=== PATIENT | male | born 1955 | race Caucasian/White ===

== ENCOUNTER 2023-05-26 10:29 | Outpatient (AMB) | payer MEDICARE, OTHER, SELFPAY ==
--- NOTE | 2023-05-26 12:14 | AM.OFFWIN_ITS ---
Intake Vital Signs 05/26/23 12:19 Weight 172 lb 6 oz BP 112/68 Blood Pressure Location Rt brachial Position Sitting Pulse 110 H Pulse Source Pulse Oximeter Pulse Oximetry (%) 93 Oxygen Delivery Method Room Air Intake Visit Reasons: EP, Left leg scrape and swelling [phone] Intake Note: Patient here because he fell on the metal part from siding door and has an open wound that is still bleeding and swollen. Patient Tobacco Use Status: Never used Tobacco Allergies diltiazem Adverse Reaction (Intermediate, Verified 05/26/23 12:22) unknown nifedipine Adverse Reaction (Mild, Verified 05/26/23 12:22) unknown Medication List - Last Reconciled 05/26/23 by Sheila Early CNP amlodipine 5 mg PO DAILY duloxetine 30 mg PO DAILY empagliflozin (Jardiance) 10 mg PO DAILY finasteride 5 mg PO DAILY fluticasone propionate 50 mcg/actuation sprays intranasal gabapentin mg PO ipratropium bromide intranasal DAILY omeprazole 20 mg PO DAILY prednisone mg PO quetiapine mg PO rosuvastatin 20 mg PO BEDTIME spironolactone 25 mg PO DAILY tamsulosin 0.4 mg PO DAILY HPI HPI Comments History of Present Illness Details 67-year-old male presents today for sick visit for complaint of left leg redness, swelling, pain after a fall last evening. Patient endorses having thin skin , and tears easily. He denies LOC w/ fall, syncopal episode, dizziness, or lightheadedness. He denies fever, chills, CP, SOB, abdominal pain, changes in bowels or bladder. He endorses working with his PCP to determine causes of frequent falls. Left lower leg with bandage intact, erythema, and edema noted around bandage. Bandage taken down and wound examined; posterior and lateral to left knee with large skin tear 3-4cm in length, and small hematoma noted, + DP, and PT pulses. Wound cleansed w/ 1/2 strength H202, bacitracin oinment applied, and wound dressed and wrapped with kelli. [facility] Social History Patient Tobacco Use Status: Never used Tobacco Review of Systems Const All systems reviewed & are unremarkable except as noted in HPI and below Physical Exam Vital Signs: Last Vital Signs Pulse 110 H 05/26/23 12:19 BP 112/68 05/26/23 12:19 Pulse Ox 93 05/26/23 12:19 Oxygen Delivery Method Room Air 05/26/23 12:19 Const General: cooperative, no acute distress, well developed and well groomed Nutritional Appearance: well nourished Orientation/consciousness: patient oriented x3 Limitations: no limitations HEENT Head: Yes normal to inspection, Yes normocephalic and Yes atraumatic Ears: hearing grossly normal bilaterally Mouth: moist mucous membranes Eyes Eyelids: Yes eyelid abnormality (left eyelid closed more than right; pt reports failed cataract surgery. ) Conjunctivae: conjunctivae normal (left conjunctivate slightly erythematous) Corneas: corneas normal Resp Effort & Inspection: normal respiratory effort, no respiratory distress and not tachypneic Auscultation: clear to auscultation bilaterally Cardio Rate: regular rate Rhythm: regular rhythm Heart sounds: S1 normal heart sound present and S2 normal heart sound present Peripheral pulses: Peripheral pulses 2+ throughout GI Palpation (GI): Soft to palpation, nontender and no guarding Auscultation: normal bowel sounds General: Yes no CVA tenderness Back/Spine/Pelvis Back: no CVA tenderness Skin Trauma: abrasion (3-4cm superficial skin tear w/ small size hematoma ) and laceration (3-4cm superficial skin tear w/ small size hematoma ) left lateral lower leg Neuro General: patient oriented x3, gait normal and moves all extremities Extrem General: Yes normal to inspection, Yes capillary refill normal and Yes no joint enlargement Psych Mental Status: mental status grossly normal Speech and movement: Normal speech and movement present Affect: normal affect Attitude: cooperative Assessment & Plan Assessment & Plan (1) Cellulitis of left lower leg: Code(s): L03.116 - Cellulitis of left lower limb Plan: 67-year-old male seen today for cellulitis of left lower extremity after recent fall with an abrasion/laceration to left lateral lower extremity. Wound cleaned, antibiotic ointment applied, and dressed w/ dry dressing and cling wrap Will treat empirically with amoxicillin 500 mg po bid x 7 days. Encouraged to follow up with PCP, or return to office for worsening or u nresolved symptoms Medications: New amoxicillin 500 mg PO BID 7 days 14 caps 0RF L03.116 - Cellulitis of left lower limb Coding Level of Care Code Est Pt Level 3 (91827) Diagnoses Cellulitis of left lower leg L03.116
[2023-05-26 12:19] VITALS: BP 112/68; PULSE 110; O2SAT 93
== END 2023-05-26 12:47 | disposition home or self-care (01) ==
PROVIDERS: PCP Hospitalist; Visit Provider Nurse Practitioner Acute Care
DX: L03.116 Cellulitis of left lower limb (principal)
CPT/HCPCS: 99213

== ENCOUNTER 2023-05-29 17:01 | Emergency (ER) | payer MEDICARE, OTHER, SELFPAY ==
--- NOTE | ~2023-05-29 | CT_ITS ---
EXAMINATION: CT HEAD WITHOUT CONTRAST CLINICAL INFORMATION: Ethanol use; gait unsteadiness. COMPARISON: None available. TECHNIQUE: Contiguous axial imaging was performed from the skull base to vertex without intravenous administration of contrast. This CT examination was performed using dose optimization techniques as appropriate, variously including the following: *Automated exposure control *Adjustment of mA and/or kV according to patient size (this includes techniques or standardized protocols for targeted exams where dose is matched to indication/reason for exam; i.e. extremities or head) *Use of iterative reconstruction technique DLP: 758 mGy-cm FINDINGS: There is no acute intracranial hemorrhage or evidence of territorial infarction. No abnormal mass effect or midline shift is seen. Humphrey to white matter differentiation is well preserved. There is mild patchy low attenuation change in the periventricular and subcortical white matter spaces. There is ventriculomegaly and proportionate generalized sulcal widening. No extra-axial fluid collections are identified. The calvarium and scalp soft tissues are normal. The middle ear cavity and mastoid air cells are clear. The visualized paranasal sinuses are clear. CT/CT head/brain wo IV con IMPRESSION: 1. No acute intracranial pathology. 2. There is mild patchy low attenuation change in the periventricular and subcortical white matter spaces. 3. There is ventriculomegaly and proportionate sulcal widening.
[2023-05-29 17:28] VITALS: BP 117/77; BP 128/76; PULSE 77; PULSE 82; RESP 20; TEMP 36.4; O2SAT 94; BMI 25.8
--- NOTE | 2023-05-29 17:40 | PC.NURSE ---
pt is alert and oriented, skin pwd, respirations and even and unlabored, ls clear, pt reports feeling generally weak and reports falling down 3 days ago not exactly sure why, having some generalized abd pain nausea and vomiting-pt states that he is a daily drinker of hard liquor more then 3 drinks a day but today only had one small drink, abd appears distended but soft and non-tender except the right upper quadrant
[2023-05-29 17:47] LABS: Glucose, Whole Blood 130 mg/dL (60-115)
[2023-05-29 17:54] LABS: MANUAL DIFF FLAG NO
[2023-05-29 18:05] LABS: Basophils Percent Auto 0.5 % (0-2); Eosinophils Percent Auto 0.1 % (0-4); Hematocrit 41.2 % (42.0-52.0); Hemoglobin 14.1 g/dl (14.0-18.0); Imm Gran Abs Auto 0.16 X10*3/uL (0.00-0.03); Imm Gran Pct Auto 1.9 % (0.0-0.4); Lymphocytes Absolute Auto 0.5 X10*3/uL (1.2-4.9); Lymphocytes Percent Auto 6.1 % (20-40); Mean Corpuscular HGB Conc 34.2 g/dl (31.0-36.0); Mean Corpuscular Hemoglobin 30.1 pg (27.0-33.0); Mean Platelet Volume 10.4 fL (9.4-12.4); Monocytes Absolute Auto 1.1 X10*3/uL (0.1-1.2); Monocytes Percent Auto 13.1 % (2-11); Neutrophils Absolute Auto 6.6 x10*3/uL (2.0-8.3); Neutrophils Percent Auto 78.3 % (45-73); Platelet Count 186 X10*3/uL (160-400); Red Blood Count 4.68 X10*6/uL (4.60-5.80); Red Cell Distribution Width 13.2 % (11.0-16.0); White Blood Count 8.5 X10*3/uL (4.8-10.8)
[2023-05-29 18:08] LABS: COVID-19 Test Negative (Negative); IDNOW Serial# 08D9AD1C
[2023-05-29 18:15] VITALS: O2SAT 85
--- NOTE | 2023-05-29 18:15 | PC.NURSE ---
while the pt is sleeping the oxygen dropped down to 85% on room air, pt denies having sleep apnea, pt put on 2l nasal cannual and now sating at 96%, dr silva aware of the situation
[2023-05-29 18:17] LABS: Ethanol < 10 mg/dL
[2023-05-29 18:19] LABS: Alanine Aminotransferase 24 U/L (0-40); Albumin Level 3.8 g/dL (3.5-5.0); Alkaline Phosphatase 55 U/L (39-117); Anion Gap 19 (12-20); Aspartate Amino Transferase 42 U/L (5-37); Bilirubin Total 0.6 mg/dL (0.0-1.0); Blood Urea Nitrogen 20 mg/dL (9-16); Carbon Dioxide 25 mmol/L (22-29); Chloride 92 mmol/L (96-108); Creatinine Clr Calc Pharmacy 65.4; Estimated Glomerular Filt Rate > 60; Glucose Random 111 mg/dL (60-115); Sodium 132 mmol/L (135-145); Total Protein 7.6 g/dL (6.5-8.0)
[2023-05-29 18:20] VITALS: O2SAT 96
--- NOTE | 2023-05-29 18:36 | ED.GENADULT ---
[facility] Adult General Chief complaint: Abdominal Pain Stated complaint: NAUSEA/VOMITING Time Seen by Provider: 05/29/23 17:34 Source: patient Mode of arrival: EMS History of Present Illness HPI narrative: 67-year-old male brought in by EMS for complaints of gentle this weakness started this afternoon and also having associated nausea with abdominal discomfort and reports that he fell 3 days ago and was seen at urgent care and has an injury to the and your aspect of his left lower extremity. Patient denies any shortness of breath or chest pain at this time but states his abdomen feels bloated but states he has continued to pass flatus and have a bowel movement. 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 Patient reports that he is an everyday drinker and his last drink was last night and he denies any seizure activity from withdrawal. Related Data Home Medications Medication Instructions Recorded Confirmed amlodipine 5 mg tablet 5 mg PO DAILY 05/26/23 duloxetine 30 mg capsule,delayed 30 mg PO DAILY 05/26/23 release empagliflozin 10 mg tablet 10 mg PO DAILY 05/26/23 (Jardiance) finasteride 5 mg tablet 5 mg PO DAILY 05/26/23 fluticasone propionate 50 spray intranasal 05/26/23 mcg/actuation nasal spray,suspension gabapentin 600 mg tablet mg PO 05/26/23 ipratropium bromide 21 mcg (0.03 intranasal DAILY 05/26/23 %) nasal spray omeprazole 20 mg capsule,delayed 20 mg PO DAILY 05/26/23 release prednisone 5 mg tablet mg PO 05/26/23 quetiapine 25 mg tablet mg PO 05/26/23 rosuvastatin 20 mg tablet 20 mg PO BEDTIME 05/26/23 spironolactone 25 mg tablet 25 mg PO DAILY 05/26/23 tamsulosin 0.4 mg capsule 0.4 mg PO DAILY 05/26/23 Previous Rx's Medication Instructions Recorded amoxicillin 500 mg capsule 500 mg PO BID 7 days #14 caps 05/26/23 Allergies Allergy/AdvReac Type Severity Reaction Status Date / Time diltiazem AdvReac Intermediate unknown Verified 05/29/23 17:34 nifedipine AdvReac Mild unknown Verified 05/29/23 17:34 Review of Systems Review of Systems: Pertinent positives and negatives as stated in HPI [facility] Past Medical History Source: nursing notes reviewed Social History Social History Alcohol intake: current Alcohol intake frequency: 3 or more drinks per day Alcohol type: hard liquor Patient Tobacco Use Status: Never used Tobacco Smoked in Last 30 Days: No Use of substances other than those prescribed or required for medical reasons: No Advance Directives: No Advance Directives Information Provided: No Physical Exam ED Vital Signs: Vital Signs - 24 hr 05/29/23 17:28 05/29/23 18:15 05/29/23 18:20 Temperature 97.5 F Pulse Rate 77 Respiratory Rate 20 Blood Pressure 117/77 Pulse Oximetry 94 85 L 96 Oxygen Delivery Method Room Air Room Air Nasal Cannula Oxygen Flow Rate 2 05/29/23 22:00 Temperature 97.6 F Pulse Rate 95 Respiratory Rate 12 Blood Pressure 124/81 Pulse Oximetry 99 Oxygen Delivery Method Nasal Cannula Oxygen Flow Rate 2 BMI result Body Mass Index 25.8 VITAL SIGNS: Reviewed. GENERAL: Well developed, well nourished, in no acute distress. HEAD: Normocephalic/atraumatic EYES: PERRLA, EOMI EARS: Ext canals without abnormality NOSE: Nares patent bilateral OROPHARYNX: no oral lesions noted, posterior pharynx clear NECK: Supple, no adenopathy LUNGS: Normal breath sounds. No adventitious sounds or accessory muscle use. SpO2<94> CARDIOVASCULAR: Regular rate and rhythm without noted murmurs ABDOMEN: Soft, non-tender, non-distended with bowel sounds. MUSCULOSKELETAL: No tenderness, deformities, or effusions noted on gross inspection. EXTREMITIES: No cyanosis, clubbing or edema. LLE: Superficial skin tears and ecchymosis to the anterior aspect of the left lower extremity SKIN: Inspection of the skin reveals no rashes NEUROLOGIC: Alert and oriented x 4. Strength and sensation to light touch were grossly intact x 4. Medications Administered Discontinued Medications Generic Name Dose Route Start Last Admin Trade Name Freq PRN Reason Stop Dose Admin Sodium Chloride 500 mls @ 999 mls/hr 05/29/23 21:15 05/29/23 21:46 Ns IV 05/29/23 21:45 999 mls/hr .Q31M NELLY Administration Medical Decision Making Medical Decision Making MDM Narrative: 67-year-old male with history and clinical presentation, DDX: Alcohol intoxication, B12 deficiency, intracranial mass, intracranial hemorrhage without acute focal deficits. I reviewed laboratory investigations which are negative for leukocytosis, anemia, thrombocytopenia, there is a mild left shift. Chemistry indices are significant for a mild dip in sodium and chloride likely secondary to poor oral intake, there is no LUKE and otherwise liver enzymes are stable. Alcohol level is undetectable and COVID-[address] of the head negative for intracranial hemorrhage or space occupying lesion. Urinalysis negative for UTI or hematuria. Signed out to Dr Aburto - [facility] - Ambulate Differential Diagnosis Differential Diagnoses: The differential diagnosis associated with the presentation includes Please see the discussion above Admission/Observation Consideration of admission/observation: Escalation of care including admission/observation considered Please see the discussion above Lab Data MDM Lab Attestation statement: I reviewed the patient's lab results. Please see the discussion above 05/29/23 17:48 05/29/23 17:48 Labs: Lab Results 05/29/23 05/29/23 05/29/23 Range/Units 17:43 17:47 17:48 WBC 8.5 (4.8-10.8) X10*3/uL RBC 4.68 (4.60-5.80) X10*6/uL Hgb 14.1 (14.0-18.0) g/dl Hct 41.2 L (42.0-52.0) % MCV 88.0 (80.0-98.0) fL MCH 30.1 (27.0-33.0) pg MCHC 34.2 (31.0-36.0) g/dl RDW 13.2 (11.0-16.0) % Plt Count 186 (160-400) X10*3/uL MPV 10.4 (9.4-12.4) fL Immature Gran % (Auto) 1.9 H (0.0-0.4) % Neut % (Auto) 78.3 H (45-73) % Lymph % (Auto) 6.1 L (20-40) % Edmonson % (Auto) 13.1 H (2-11) % Eos % (Auto) 0.1 (0-4) % Baso % (Auto) 0.5 (0-2) % Lymph # (Auto) 0.5 L (1.2-4.9) X10*3/uL Ed[place]on # (Auto) 1.1 (0.1-1.2) X10*3/uL Eos # (Auto) 0.0 (0.0-0.4) X10*3/uL Baso # (Auto) 0.0 (0.0-0.2) X10*3/uL Abs Immat Gran (auto) 0.16 H (0.00-0.03) X10*3/uL Absolute Neuts (auto) 6.6 (2.0-8.3) x10*3/uL Absolute Nucleated RBC 0.000 (0.0-0.012) X10*3/uL Nucleated RBC % (auto) 0.0 (0.0-0.2) /100WBC Sodium 132 L (135-145) mmol/L Potassium 4.0 (3.3-5.1) mmol/L Chloride 92 L (96-108) mmol/L Carbon Dioxide 25 (22-29) mmol/L Anion Gap 19 (12-20) BUN 20 H (9-16) mg/dL Creatinine 1.03 (0.5-1.4) mg/dL Estim Creat Clear Calc 65.4 Estimated GFR > 60 POC Glucose 130 H (60-115) mg/dL Random Glucose 111 (60-115) mg/dL Calcium 10.0 (8.4-10.2) mg/dL Total Bilirubin 0.6 (0.0-1.0) mg/dL AST 42 H (5-37) U/L ALT 24 (0-40) U/L Alkaline Phosphatase 55 (39-117) U/L Total Protein 7.6 (6.5-8.0) g/dL Albumin 3.8 (3.5-5.0) g/dL Urine Color Urine Appearance Urine pH (5.0-9.0) Ur Specific [place] (1.005-1.025) Urine Protein (Neg-Trace) mg/dL Urine Glucose (UA) (Negative) mg/dL Urine Ketones (Negative) mg/dL Urine Blood (Negative) Urine Nitrite (Negative) Ur Leukocyte Esterase (Negative) Ethyl Alcohol < 10 mg/dL COVID-19 ([facility]USA) Negative (Negative) COVID-19 Clin Com See Note 05/29/23 Range/Units 21:53 WBC (4.8-10.8) X10*3/uL RBC (4.60-5.80) X10*6/uL Hgb (14.0-18.0) g/dl Hct (42.0-52.0) % MCV (80.0-98.0) fL MCH (27.0-33.0) pg MCHC (31.0-36.0) g/dl RDW (11.0-16.0) % Plt Count (160-400) X10*3/uL MPV (9.4-12.4) fL Immature Gran % (Auto) (0.0-0.4) % Neut % (Auto) (45-73) % Lymph % (Auto) (20-40) % Edmonson % (Auto) (2-11) % Eos % (Auto) (0-4) % Baso % (Auto) (0-2) % Lymph # (Auto) (1.2-4.9) X10*3/uL [place] # (Auto) (0.1-1.2) X10*3/uL Eos # (Auto) (0.0-0.4) X10*3/uL Baso # (Auto) (0.0-0.2) X10*3/uL Abs Immat Gran (auto) (0.00-0.03) X10*3/uL Absolute Neuts (auto) (2.0-8.3) x10*3/uL Absolute Nucleated RBC (0.0-0.012) X10*3/uL Nucleated RBC % (auto) (0.0-0.2) /100WBC Sodium (135-145) mmol/L Potassium (3.3-5.1) mmol/L Chloride (96-108) mmol/L Carbon Dioxide (22-29) mmol/L Anion Gap (12-20) BUN (9-16) mg/dL Creatinine (0.5-1.4) mg/dL Estim Creat Clear Calc Estimated GFR POC Glucose (60-115) mg/dL Random Glucose (60-115) mg/dL Calcium (8.4-10.2) mg/dL Total Bilirubin (0.0-1.0) mg/dL AST (5-37) U/L ALT (0-40) U/L Alkaline Phosphatase (39-117) U/L Total Protein (6.5-8.0) g/dL Albumin (3.5-5.0) g/dL Urine Color Yellow Urine Appearance Clear Urine pH 6.0 (5.0-9.0) Ur Specific [place] 1.020 (1.005-1.025) Urine Protein 30 (1+) H (Neg-Trace) mg/dL Urine Glucose (UA) >=1000 H (Negative) mg/dL Urine Ketones Trace (Negative) mg/dL Urine Blood Negative (Negative) Urine Nitrite Negative (Negative) Ur Leukocyte Esterase Negative (Negative) Ethyl Alcohol mg/dL COVID-19 (MUSA) (Negative) COVID-19 Clin Com Radiology Impression Discussion of test interpretation with radiology: I have reviewed the radiologist's reading. Radiologist Impression: Please see the discussion above Discharge Plan Discharge Clinical Impression: Nausea & vomiting Patient Disposition: Still a Patient Prescriptions: No Action fluticasone propionate 50 mcg/actuation spray,suspension intranasal Jardiance 10 mg tablet 10 mg PO DAILY duloxetine 30 mg capsule,delayed release(DR/EC) 30 mg PO DAILY rosuvastatin 20 mg tablet 20 mg PO BEDTIME finasteride 5 mg tablet 5 mg PO DAILY omeprazole 20 mg capsule,delayed release(DR/EC) 20 mg PO DAILY spironolactone 25 mg tablet 25 mg PO DAILY amlodipine 5 mg tablet 5 mg PO DAILY prednisone 5 mg tablet PO gabapentin 600 mg tablet PO tamsulosin 0.4 mg capsule 0.4 mg PO DAILY quetiapine 25 mg tablet PO ipratropium bromide 21 mcg (0.03 %) spray,non-aerosol intranasal DAILY amoxicillin 500 mg capsule 500 mg PO BID 7 Days Qty: 14 0RF
[2023-05-29] MEDS: 0.9 % Sodium Chloride 500 ML 999 ML IV (21:46)
[2023-05-29 22:00] VITALS: BP 124/81; PULSE 95; RESP 12; TEMP 36.4; O2SAT 99
[2023-05-29 22:10] LABS: Appearance Urine Clear; Color Urine Yellow; Glucose Urine UA >=1000 mg/dL (Negative); Leukocyte Esterase Urine Negative (Negative); Nitrite Urine Negative (Negative); UMIC TRIGGER UACC YES; Urine Blood Negative (Negative); Urine Ketones Trace mg/dL (Negative); Urine Protein 30 (1+) mg/dL (Neg-Trace)
--- NOTE | 2023-05-29 22:26 | MHC.EDTECH ---
Pt ambulated with slow, steady gait. Pt states he felt shaky walking and that normally is able to walk better.
[2023-05-29 22:46] LABS: Bacteria Urine None Seen (None Seen); Hyaline Casts Urine 0-2 /LPF (0-2); RBC Urine 0-2 /HPF (0-2); Squamous Epithelial Cell Urine 0-2 /HPF (0-2); WBC Urine 0-5 /HPF (0-5)
[2023-05-30] VITALS: BP 131/87; PULSE 93; RESP 14; TEMP 36.8; O2SAT 95
--- NOTE | 2023-05-30 01:16 | PC.NURSE ---
This RN in room with patient in attempt to discharge as ordered. Pt reporting he is very concerned regarding going home and having dizziness and falls. This RN discussed with and patient will be evaluated by PT//case mgt in the am.
[2023-05-30 02:00] VITALS: BP 124/75; PULSE 90; RESP 12; O2SAT 95
[2023-05-30 05:01] VITALS: BP 112/79; PULSE 85; RESP 12; O2SAT 93
--- NOTE | 2023-05-30 07:19 | PC.NURSE ---
Resumed care of patient this AM, he is currently awake and oriented, PT at bedside talking with patient. No concerns at this time, safety measures in place
[2023-05-30 07:22] VITALS: BP 133/92; PULSE 90; RESP 12; TEMP 36.7; O2SAT 95
[2023-05-30 07:37] VITALS: BP 133/92; PULSE 90; O2SAT 95
--- NOTE | 2023-05-30 08:56 | PC.NURSE ---
Wound care provided to Left vogel wound, pt has been seen at urgent care for wound, pt is aware that he needs to follow up outpatient. Provider aware of wound.
--- NOTE | 2023-05-30 09:34 | MHC.CM.ED ---
Received case management consult overnight. Patient came to the ER due to nausea/vomiting. Work up essentially negative. Physical therapy eval completed. Home therapy is recommended. Met with patient in regards to discharge planning. Patient lives alone, ambulates independently and had no services prior to coming to the hospital. PCP verified. Patient received 6 Pfizer vaccines. Patient feels he can safely return home with [facility]. Patient agreeable to referral to [facility]. Referral made via [facility]. Patient's friend will transport patient home. Rachele TRACY aware. Continue to monitor for d/c needs.
== END 2023-05-30 09:54 | disposition home or self-care (01) ==
PROVIDERS: Emergency Provider Student in an Organized Health Care Education/Training Program; PCP Family Medicine
DX: R11.2 Nausea with vomiting, unspecified (principal); Z11.52 Encounter for screening for COVID-19; I11.0 Hypertensive heart disease with heart failure; I50.9 Heart failure, unspecified; I48.91 Unspecified atrial fibrillation; F10.988 Alcohol use, unspecified with other alcohol-induced disorder; Y90.0 Blood alcohol level of less than 20 mg/100 ml; Z95.2 Presence of prosthetic heart valve; Z79.899 Other long term (current) drug therapy
CPT/HCPCS: 36415; 70450; 80053; 80307; 81001; 82947; 85025; 87635; 97161; 99284; 99285

== ENCOUNTER 2023-06-05 10:26 | Inpatient (IN) | payer MEDICARE, OTHER, SELFPAY ==
[2023-06-05 10:50] VITALS: BP 108/62; BP 154/89; PULSE 115; PULSE 91; RESP 20; TEMP 37; O2SAT 88; O2SAT 91; BMI 26.9
--- NOTE | 2023-06-05 13:41 | ED.GENADULT ---
HPI - General Adult General Chief complaint: Dyspnea Stated complaint: sob Time Seen by Provider: 06/05/23 10:34 Source: patient Mode of arrival: EMS Limitations: no limitations History of Present Illness HPI narrative: 67 y o male with PMH sarcoidosis, atrial fibrillation presenting for evaluation of shortness of breath since this morning. Patient reports that when he woke up this morning he felt short of breath, checked his oxygen saturation at home and noted it to be 80%. Patient reports no home oxygen use. Patient states he took a few deep breaths and the level increased to 85%, then called EMS for continued shortness of breath. To note, patient was seen here last week on 05/29 for nausea and vomiting. 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 Also endorsing early satiety and generalized abdominal pain, though he states he is having bowel movements at his regular frequency with regular consistency. States he is nauseous. Patient also reporting a swollen LLE. Patient was seen at the Urgent Care on 05/26 diagnosed with cellulitis and skin tear to the anterior LLE just inferior to knee secondary to a fall at home, treated with amoxicillin. Patient now endorsing generalized edema to the LLE, calf tenderness, and a swollen ankle with ecchymosis along the lateral aspect. Patient denies any new additional trauma, denies any history of blood clots. States he is not anticoagulated, spends most of his days seated in a chair watching TV. Negative chest pain, dizziness, syncope, numbness and tingling, visual changes, headache. Related Data Home Medications Medication Instructions Recorded Confirmed amlodipine 5 mg tablet 5 mg PO DAILY 05/26/23 duloxetine 30 mg capsule,delayed 30 mg PO DAILY 05/26/23 release empagliflozin 10 mg tablet 10 mg PO DAILY 05/26/23 (Jardiance) finasteride 5 mg tablet 5 mg PO DAILY 05/26/23 fluticasone propionate 50 spray intranasal 05/26/23 mcg/actuation nasal spray,suspension gabapentin 600 mg tablet mg PO 05/26/23 ipratropium bromide 21 mcg (0.03 intranasal DAILY 05/26/23 %) nasal spray omeprazole 20 mg capsule,delayed 20 mg PO DAILY 05/26/23 release prednisone 5 mg tablet mg PO 05/26/23 quetiapine 25 mg tablet mg PO 05/26/23 rosuvastatin 20 mg tablet 20 mg PO BEDTIME 05/26/23 spironolactone 25 mg tablet 25 mg PO DAILY 05/26/23 tamsulosin 0.4 mg capsule 0.4 mg PO DAILY 05/26/23 Previous Rx's Medication Instructions Recorded amoxicillin 500 mg capsule 500 mg PO BID 7 days #14 caps 05/26/23 ondansetron 4 mg disintegrating 4 mg PO Q6H PRN nausea and 05/29/23 tablet vomiting #10 tabs Allergies Allergy/AdvReac Type Severity Reaction Status Date / Time diltiazem AdvReac Intermediate unknown Verified 05/29/23 17:34 nifedipine AdvReac Mild unknown Verified 05/29/23 17:34 Review of Systems Review of Systems: Constitutional : No Weight loss, No Fever, No Chills, No Fatigue, No Malaise, +Weight gain Cardiovascular : No Chest Pain, + SOB, No Dyspnea on Exertion, No Orthopnea, No Edema, No Palpitations Respiratory : No Cough, + Sputum, No Wheezing Gastrointestinal : + Nausea, No Vomiting, No Diarrhea, No Constipation, + abdominal Pain, No Hematochezia, No Melena Genitourinary : No Dysuria, No Urinary Frequency, No Hematuria, Musculoskeletal : No joint pain, No Myalgias, No Joint Swelling Skin : No Skin Lesions, No rash Neuro : No Weakness, No Numbness, No Dizziness, No Headache Psych : No Anxiety/Panic, No Depression All other systems reviewed and are negative Yes all other systems are reviewed and are negative [facility] Past Medical History Attestation statement: The following information was validated with the patient. Source: old records reviewed and nursing notes reviewed Social History Social History Alcohol intake: current Alcohol intake frequency: 3 or more drinks per day Alcohol type: hard liquor Patient Tobacco Use Status: Never used Tobacco Advance Directives: Yes Advance Directives on File: Yes Advance Directives Date on File: 05/30/23 Physical Exam ED Vital Signs: Vital Signs - 24 hr 06/05/23 10:50 06/05/23 14:25 Temperature 98.6 F Pulse Rate 91 94 Respiratory Rate 20 12 Blood Pressure 108/62 105/68 Pulse Oximetry 91 L 93 Oxygen Delivery Method Room Air Room Air BMI result Body Mass Index 26.9 VSS Appearance: Alert.? Oriented X3.? No acute distress.? Head: Normocephalic, atraumatic, no step-offs or deformities Eyes: Pupils equal, round and reactive to light.? Neck: Normal inspection.? Neck supple.? CVS: Irregularly irregular rhythm.? Pulses normal.?2+ irregular radial, ulnar, AT, PT, popiteal pulses equal b/l Respiratory: No respiratory distress.?On 2L NC, speaking in full sentences, equal chest rise and fall. Diminished breath sounds with crackles to the bases b/l, L>R Abdomen: Significantly distended, round in shape with no obvious masses or overlying skin changes, dull to percussion, nontender in all four quadrants Skin: Skin warm and dry. Normal skin turgor.?There is a 4cm patch of ecchymosis noted to the left posterior forearm, green-yellow in appearance (per pt, present for 2 weeks), various small 1cm patches of ecchymosis scattered along the patient's right forearm (per pt, present for 2 weeks). The LLE below the knee is erythematous and edematous, and there is ecchymosis to the lateral aspect of the L foot. 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 2+ irregular radial, ulnar, AT, PT, popiteal pulses equal b/l. Gross sensation in tact, cap refill <2 s b/l. No foot drop. +Calf TTP on the left side, non tender on the right. Neuro: Oriented X 3.? No motor deficit.? No sensory deficit. CN 2-12 intact Course Reevaluation(s) Reevaluation #1: CBC with a slight normocytic anemia peers to be around his baseline. Chemistry unremarkable. Troponin negative, EKG nonischemic. Normal lactic acid. BNP 336, no overt signs of fluid overload on exam. Venous duplex with no DVT in the left lower extremity this is likely cellulitis, is being covered with ceftriaxone. Chest x-ray with moderate left pleural effusion and left lower lobe infiltrate/ atelectasis. Patient became hypoxic with ambulation 85% on room air was placed on nasal cannula, patient does not use nasal cannula home. CT of chest, and CT abdomen and pelvis pending. 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 Time: 16:03 Reevaluation #3: Ultimate plan hospital admission Time: 16:06 Medications Administered Discontinued Medications Generic Name Dose Route Start Last Admin Trade Name Tateq PRN Reason Stop Dose Admin Ceftriaxone Sodium 1 gm/ 50 mls @ 100 mls/hr 06/05/23 13:51 06/05/23 15:47 Sodium Chloride IV 06/05/23 14:20 100 mls/hr ONCE ONE Administration Medical Decision Making Medical Decision Making MDM Narrative: 67 y o male PMH atrial fibrillation, sarcoidosis presenting for evaluation of shortness of breath since this morning, subjective hypoxia at home to 80s PE significant for oxygen saturation 93% on 2L NC. Also significant for diminished breath sounds with crackles to the bases b/l, L>R. The LLE below the knee is erythematous and edematous, and there is ecchymosis to the lateral aspect of the L foot. 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 2+ irregular radial, ulnar, AT, PT, popiteal pulses equal b/l. Gross sensation in tact, cap refill <2 s b/l. No foot drop. +Calf TTP on the left side, non tender on the right. Concern for pneumonia vs pulmonary embolism vs pleural effusion vs bronchitis vs viral illness vs pulmonary fibrosis. Less likely pneumothorax, ACS, equal chest rise and fall, no tracheal deviation, no chest pain or pressure, hx of CAD. No acute threat to airway, managing secretions, speaking in full sentences. LLE pain and swelling concerning for simple skin tear vs cellulitis vs DVT. No concern for osteomyelitis, necrotizing infection, . No acute threat to limb. No concern for acute arterial embolism, pulses 2+ and symmetric, limb is warm and well perfused. No signs of gangrene, septic joint. Abdominal pain may be secondary to third spacing vs ascites vs hepatomegaly vs. No concern for spontaneous bacterial peritonitis or acute abdomen, abdomen is nontender with no rebound or guarding, no peritoneal signs. Plan- labs,imaging Differential Diagnosis Differential Diagnoses: The differential diagnosis associated with the presentation includes Concern for pneumonia vs pulmonary embolism vs pleural effusion vs bronchitis vs viral illness vs pulmonary fibrosis. Less likely pneumothorax, ACS, equal chest rise and fall, no tracheal deviation, no chest pain or pressure, hx of CAD. No acute threat to airway, managing secretions, speaking in full sentences. LLE pain and swelling concerning for simple skin tear vs cellulitis vs DVT. No concern for osteomyelitis, necrotizing infection, . No acute threat to limb. No concern for acute arterial embolism, pulses 2+ and symmetric, limb is warm and well perfused. No signs of gangrene, septic joint. Abdominal pain may be secondary to third spacing vs ascites vs hepatomegaly vs. No concern for spontaneous bacterial peritonitis or acute abdomen, abdomen is nontender with no rebound or guarding, no peritoneal signs. Admission/Observation Consideration of admission/observation: Escalation of care including admission/observation considered likely Consult Healthcare Provider Management of the patient was discussed with: Hospitalist Lab Data MDM Lab Attestation statement: I reviewed the patient's lab results. 06/05/23 13:52 06/05/23 13:52 Labs: Lab Results 06/05/23 06/05/23 06/05/23 Range/Units 13:52 14:05 14:07 WBC 6.7 (4.8-10.8) X10*3/uL RBC 4.55 L (4.60-5.80) X10*6/uL Hgb 13.9 L (14.0-18.0) g/dl Hct 41.4 L (42.0-52.0) % MCV 91.0 (80.0-98.0) fL MCH 30.5 (27.0-33.0) pg MCHC 33.6 (31.0-36.0) g/dl RDW 13.4 (11.0-16.0) % Plt Count 229 (160-400) X10*3/uL MPV 9.9 (9.4-12.4) fL Immature Gran % (Auto) 3.7 H (0.0-0.4) % Neut % (Auto) 66.3 (45-73) % Lymph % (Auto) 13.8 L (20-40) % [place] % (Auto) 14.6 H (2-11) % Eos % (Auto) 0.9 (0-4) % Baso % (Auto) 0.7 (0-2) % Lymph # (Auto) 0.9 L (1.2-4.9) X10*3/uL [place] # (Auto) 1.0 (0.1-1.2) X10*3/uL Eos # (Auto) 0.1 (0.0-0.4) X10*3/uL Baso # (Auto) 0.1 (0.0-0.2) X10*3/uL Abs Immat Gran (auto) 0.25 H (0.00-0.03) X10*3/uL Absolute Neuts (auto) 4.4 (2.0-8.3) x10*3/uL Absolute Nucleated RBC 0.000 (0.0-0.012) X10*3/uL Nucleated RBC % (auto) 0.0 (0.0-0.2) /100WBC D-Dimer High Sensitivty 726 NG/ML Sodium 135 (135-145) mmol/L Potassium 4.1 (3.3-5.1) mmol/L Chloride 99 (96-108) mmol/L Carbon Dioxide 26 (22-29) mmol/L Anion Gap 14 (12-20) BUN 12 (9-16) mg/dL Creatinine 0.81 (0.5-1.4) mg/dL Estim Creat Clear Calc 83.2 Estimated GFR > 60 Random Glucose 90 (60-115) mg/dL Lactic Acid 1.3 (0.5-2.0) mmol/L Calcium 9.7 (8.4-10.2) mg/dL Total Bilirubin 0.5 (0.0-1.0) mg/dL AST 25 (5-37) U/L ALT 13 (0-40) U/L Alkaline Phosphatase 55 (39-117) U/L Troponin I High Sens 8.7 (<3.5-35.0) ng/L B-Natriuretic Peptide 336 H (<100) pg/mL Total Protein 6.9 (6.5-8.0) g/dL Albumin 3.5 (3.5-5.0) g/dL Lipase 40 (8-78) U/L COVID-19 ([facility]) Negative (Negative) COVID-19 Clin Com See Note Influenza Type A (AZAR) Negative (Negative) Influenza Type B (AZAR) Negative (Negative) Influenza A & B Note See Note Independent Interpretation I performed an independent interpretation of an: EKG, Plain X-Ray and CT Scan Radiology Impression Discussion of test interpretation with radiology: I have reviewed the radiologist's reading. Core Measures AMI core measures followed: Yes Measure exclusions: not indicated Critical Care Time Critical Care Time Critical Care Time: Yes Total Critical Care Time: 35 Attestation: I attest to this time spent taking care of the patient, obtaining history, physical, reviewing labs, imaging Discharge Plan Discharge Clinical Impression: Pneumonia, Cellulitis of left lower leg, Hypoxia Patient Disposition: Still a Patient Prescriptions: No Action ondansetron 4 mg tablet,disintegrating 4 mg PO Q6H PRN (Reason: nausea and vomiting) Qty: 10 0RF fluticasone propionate 50 mcg/actuation spray,suspension intranasal Jardiance 10 mg tablet 10 mg PO DAILY duloxetine 30 mg capsule,delayed release(DR/EC) 30 mg PO DAILY rosuvastatin 20 mg tablet 20 mg PO BEDTIME finasteride 5 mg tablet 5 mg PO DAILY omeprazole 20 mg capsule,delayed release(DR/EC) 20 mg PO DAILY spironolactone 25 mg tablet 25 mg PO DAILY amlodipine 5 mg tablet 5 mg PO DAILY prednisone 5 mg tablet PO gabapentin 600 mg tablet PO tamsulosin 0.4 mg capsule 0.4 mg PO DAILY quetiapine 25 mg tablet PO ipratropium bromide 21 mcg (0.03 %) spray,non-aerosol intranasal DAILY amoxicillin 500 mg capsule 500 mg PO BID 7 Days Qty: 14 0RF
--- NOTE | 2023-06-05 14:17 | MHC.EDTECH ---
pt 02 sat after walking at 85% on 2 lpm
[2023-06-05 14:25] VITALS: BP 105/68; PULSE 94; RESP 12; O2SAT 93
--- NOTE | 2023-06-05 17:28 | PHA.MEDREC ---
Pharmacy Consult ? Medication Reconciliation Pharmacy has completed the medication reconciliation. Patient confirmed medicaitons. Reports he does not think that he has had his prednisone in 2 weeks because it was on the nurses list. Patient report Breztri Inhaler but has no claim history for it. Lida Humphrey, PharmD
--- NOTE | 2023-06-05 17:52 | PM.IMHP ---
History of Present Illness Date of Service: 06/05/23 Attending physician on admission: Trell Garcia Chief Complaint: sob, weight gain, hypoxia 67-year-old male with history of sarcoidosis, paroxysmal atrial fibrillation not on anticoagulation, hypertension, and alcohol use disorder presents to the ED earlier today for evaluation of shortness of breath and weight gain. He reports for about 2-3 days he has been experiencing dyspnea on exertion with increased bilateral lower extremity edema and this morning noted 9 lb weight gain over the last 3 days. He tells me this morning he woke up and was hypoxic to 80%. He tells me about 1 week ago he was started on amoxicillin for cellulitis in the left lower extremity and completed course as advised. He is also reporting abdominal bloating. Denies any fevers, chills, sore throat, abdominal pain, nausea, vomiting, diarrhea, melena, hematochezia, lightheadedness, cough, palpitations, or chest pain. He tells me he was advised by asset protection lead start prednisone about 2 weeks ago but not start this. On arrival, patient hypoxic in the 80s, placed on 2 L supplemental O2, now maintaining oximetry around 94%. There is no leukocytosis. Renal function and electrolyte levels are normal. BNP elevated at 336. Troponin within normal limits. Negative for COVID-19, influenza. Venous duplex of left lower extremity negative for DVT. Chest x-ray shows moderate left pleural effusion with underlying atelectasis and left lower lobe infiltrate versus atelectasis with cardiomegaly and prominent pulmonary vascularity with question of mild congestion. in the ED, given 1 g IV ceftriaxone and 500 mg IV azithromycin. Review of Systems Review of Systems: General: No fevers, malaise, unintentional weight loss. +weight gain HEENT: No blurred vision, diplopia. No sore throat, nasal congestion, rhinorrhea, sinus pain, ear pain Cardiovascular: No chest pain, palpitations. +ble edema Respiratory: +coronel, +hypoxia, +wheezing. No wheezing, cough GI: +abd bloating. No abdominal pain, nausea, vomiting, diarrhea, constipation, melena, hematochezia : No dysuria, hematuria, increased urinary frequency, decreased urinary output MSK: No myalgia, back pain Neuro: No headaches, weakness, paresthesias Skin: No rashes or lesions PMFSH Medical History Alcohol use disorder Hypertension Atrial fibrillation Sarcoidosis Social History Alcohol intake: current Alcohol intake frequency: 3 or more drinks per day Alcohol type: beer and hard liquor Patient Tobacco Use Status: Never used Tobacco Smoked in Last 30 Days: No Use of substances other than those prescribed or required for medical reasons: No Advance Directives: Yes Advance Directives on File: Yes Advance Directives Date on File: 05/30/23 Nutrition Risks: No Nutritional Risk service: No Meds Allergies Allergy/AdvReac Type Severity Reaction Status Date / Time diltiazem AdvReac Intermediate unknown Verified 05/29/23 17:34 nifedipine AdvReac Mild unknown Verified 05/29/23 17:34 Active Medications: Current Medications Acetaminophen (Acetaminophen 325 Mg Tablet) 650 mg PO Q6H PRN PRN Reason: Pain, Mild (Pain Scale 1-3) Albuterol Sulfate (Albuterol Sulfate 90 Mcg 8 Gm Inhaler) 2 puff INHALE Q4-6H PRN PRN Reason: Wheezing Albuterol/Ipratropium (Albuterol/Iprat 2.5/0.5mg 3 Ml Ampul.Neb) 3 ml INHALE RQ4H WHILE AWAKE [facility] Amlodipine Besylate (Amlodipine Besylate 5 Mg Tablet) 5 mg PO DAILY [facility]; Protocol Ascorbic Acid (Ascorbic Acid 500 Mg Tablet) 500 mg PO DAILY [facility] Docusate Sodium (Docusate Sodium 100 Mg Capsule) 100 mg PO DAILY PRN PRN Reason: Constipation Duloxetine HCl (Duloxetine Hcl 30 Mg Capsule.Dr) 30 mg PO DAILY [facility] Empagliflozin (Empagliflozin 10 Mg Tablet) 10 mg PO DAILY [facility] Enoxaparin Sodium (Enoxaparin Sodium 40 Mg/0.4 Ml Syringe) 40 mg SUBCUT Q24H [facility] Finasteride (Finasteride 5 Mg Tablet) 5 mg PO DAILY [facility] Fluticasone Propionate (Fluticasone Propionate Nasal 16 Gm [place]) 1 spray NOSTRIL-B DAILY [facility] Furosemide (Furosemide 40 Mg/4 Ml Vial) 40 mg IVPUSH DAILY [facility]; Protocol Gabapentin (Gabapentin 600 Mg Tablet) 600 mg PO BID [facility] Ceftriaxone Sodium 1 gm/ (Sodium Chloride) 50 mls @ 100 mls/hr IV Q24H [facility] Azithromycin 500 mg/ Sodium (Chloride) 250 mls @ 125 mls/hr IV Q24H [facility] Multivitamins/Vitamin C (Multivitamin Tablet) 1 tab PO DAILY [facility] Non-Formulary Medication (Tydpmxvwms-Rgrhtfgs-Azvuumzxrr [Breztri Aerosphere]) 2 inhalation INHALE BID [facility] Non-Formulary Medication (Dextromethorphan-Guaifenesin [Mucinex Dm]) 1 tab PO Q12H [facility] Non-Formulary Medication (Povidone (Pf) [Ivizia (Pf)]) 1 drop EYE-BOTH BID [facility] Non-Formulary Medication (Rosuvastatin) 20 mg PO BEDTIME [facility] Omeprazole (Omeprazole 20 Mg Capsule.Dr) 20 mg PO DAILY [facility] Ondansetron HCl (Ondansetron Hcl 4 Mg/2 Ml Vial) 4 mg IVPUSH Q8H PRN PRN Reason: Nausea and Vomiting Prednisone (Prednisone 5 Mg Tablet) 10 mg PO DAILY [facility] Stop: 06/10/23 09:01 Quetiapine Fumarate (Quetiapine Fumarate 50 Mg Tablet) 50 mg PO BEDTIME [facility] Sodium Chloride (0.9 % Sodium Chloride Flush 3 Ml Syringe) 3 ml IVFLUSH QSHIFT [facility] Spironolactone (Spironolactone 25 Mg Tablet) 25 mg PO DAILY [facility]; Protocol Tamsulosin HCl (Tamsulosin Hcl 0.4 Mg Capsule) 0.4 mg PO DAILY [facility] Home Medications Medication Instructions Recorded Confirmed Last Taken Type amlodipine 5 mg tablet 5 mg PO DAILY 05/26/23 06/05/23 06/05/23 History duloxetine 30 mg capsule,delayed 30 mg PO DAILY 05/26/23 06/05/23 06/05/23 History release empagliflozin 10 mg tablet 10 mg PO DAILY 05/26/23 06/05/23 06/05/23 History (Jardiance) finasteride 5 mg tablet 5 mg PO DAILY 05/26/23 06/05/23 06/05/23 History fluticasone propionate 50 1 spray intranasal DAILY 05/26/23 06/05/23 06/05/23 History mcg/actuation nasal spray,suspension gabapentin 600 mg tablet 600 mg PO BID 05/26/23 06/05/23 06/05/23 History omeprazole 20 mg capsule,delayed 20 mg PO DAILY 05/26/23 06/05/2306/05/23 History release prednisone 5 mg tablet 10 mg PO DAILY 05/26/23 06/05/23 06/05/23 History quetiapine 25 mg tablet 50 mg PO BEDTIME 05/26/23 06/05/23 06/04/23 History rosuvastatin 20 mg tablet 20 mg PO BEDTIME 05/26/23 06/05/23 06/04/23 History spironolactone 25 mg tablet 25 mg PO DAILY 05/26/23 06/05/23 06/05/23 History tamsulosin 0.4 mg capsule 0.4 mg PO DAILY 05/26/23 06/05/23 06/05/23 History Probiotic 1 cap PO DAILY 06/05/23 06/05/23 06/05/23 History albuterol sulfate 90 mcg/actuation 2 puff inhalation Q4-6H PRN 06/05/23 06/05/23 Unknown History aerosol inhaler Wheezing ascorbic acid (vitamin C) 500 mg 500 mg PO DAILY 06/05/23 06/05/23 06/05/23 History tablet budesonide 160 mcg-glycopyr 9 2 inh inhalation BID 06/05/23 06/05/23 06/05/23 History mcg-formot 4.8 mcg/actuation HFA inhaler (Breztri Aerosphere) dextromethorphan-guaifenesin ER 60 1 tab PO Q12H 06/05/23 06/05/23 06/05/23 History mg-1,200 mg tab,extend release,12hr (Mucinex DM) multivitamin 1 tab PO DAILY 06/05/23 06/05/23 06/05/23 History potassium 99 mg tablet 99 mg PO DAILY 06/05/23 06/05/23 06/05/23 History povidone (PF) 0.5 % eye drops 1 drp ophthalmic (eye) BID 06/05/23 06/05/23 06/05/23 History (iVizia (PF)) Physical Exam Vital Signs and Narrative: Vital Signs: Last Vital Signs Temp 98.6 F 06/05/23 10:50 Pulse 94 06/05/23 14:25 Resp 12 06/05/23 14:25 BP 105/68 06/05/23 14:25 Pulse Ox 93 06/05/23 14:25 O2 Del Method Room Air 06/05/23 14:25 BMI result Body Mass Index 26.9 Constitutional - Awake and Alert, No apparent distress Eyes - PERRLA, EOMI Cardiovascular - S1S2, RRR, No edema Respiratory - Normal lung expansion, Normal respiratory effort, No respiratory distress, scattered expiratory wheezes bilaterally, LLL crackles Gastrointestinal - NT / ND; +BS; No rebound or guarding Extremities - no calf tenderness bilaterally, no swelling Skin - Warm/Dry Neurological - Alert & oriented x3 Psychological - Appropriate affect Results Labs 06/06/23 04:12 06/06/23 04:12 Labs: Laboratory Results - last 24 hr 06/05/23 06/05/23 13:52 14:05 MCV 91.0 MCH 30.5 MCHC 33.6 RDW 13.4 Plt Count 229 MPV 9.9 Immature Gran % (Auto) 3.7 H Neut % (Auto) 66.3 Lymph % (Auto) 13.8 L Rankin % (Auto) 14.6 H Eos % (Auto) 0.9 Baso % (Auto) 0.7 Lymph # (Auto) 0.9 L Rankin # (Auto) 1.0 Eos # (Auto) 0.1 Baso # (Auto) 0.1 Abs Immat Gran (auto) 0.25 H Absolute Neuts (auto) 4.4 Absolute Nucleated RBC 0.000 Nucleated RBC % (auto) 0.0 D-Dimer High Sensitivty 726 Anion Gap 14 Estim Creat Clear Calc 83.2 Estimated GFR > 60 Random Glucose 90 Lactic Acid 1.3 Calcium 9.7 Total Bilirubin 0.5 AST 25 ALT 13 Alkaline Phosphatase 55 B-Natriuretic Peptide 336 H Total Protein 6.9 Albumin 3.5 Lipase 40 COVID-19 (MUSA) Negative COVID-19 Clin Com See Note Influenza Type A (AZAR) Negative Influenza Type B (AZAR) Negative Influenza A & B Note See Note Imaging Radiologist's Impressions: Impressions Chest X-Ray 06/05/23 12:45 IMPRESSION: 1. Moderate left pleural effusion with underlying atelectasis. 2. There is left lower lobe infiltrate/atelectasis. 3. 3. Mild cardiomegaly with prominent pulmonary vascularity question mild congestion Venous Duplex 06/05/23 15:20 IMPRESSION: No DVT demonstrated in the left lower extremity. Assessment and Plan (1) New onset of congestive heart failure: Status: Acute (2) Hypoxia: Status: Acute (3) Pneumonia: Status: Acute (4) Cellulitis of left lower leg: Status: Acute Plan 67-year-old male with history of sarcoidosis, paroxysmal atrial fibrillation not on anticoagulation, hypertension, and alcohol use disorder admitted for acute LLL pneumonia with acute hypoxemic respiratory failure and newly diagnosed CHF. # acute hypoxemic respiratory failure -secondary to left lower lobe pneumonia and CHF #Acute LLL pneumonia -w/ possible parapneumonic effusion -negative for COVID-19, influenza -IV ceftriaxone 1 g and IV doxy (initiated 06/05) -strep pneumo antigen, Legionella antigen, sputum culture pending -DuoNebs -follow CBC, cultures # acute CHF exacerbation- newly diagnosed per patient -symptomatic with dyspnea on exertion, bilateral lower extremity edema, PND, 9 lb weight gain x3 days -BNP elevated, CXR with pulmonary vascular congestion and possible left-sided pleural effusion -40 mg IV Lasix daily -cardiac diet -strict I&O -daily weights -echocardiogram -cardiology consult # left lower extremity cellulitis -venous duplex negative -appears resolving -on ceftriaxone and doxy as above # sarcoidosis -continue prednisone prescribed by outpatient provider -continue maintenance inhalers, albuterol p.r.n. # unspecified atrial fibrillation not on anticoagulation-rate controlled -EKG pending -not on anticoagulation or aspirin or rate control medications # hypertension -continue amlodipine, spironolactone DVT prophylaxis-Lovenox Full code Patient requires inpatient stay at least 2 midnights for management of acute hypoxemic respiratory failure secondary to pneumonia and CHF exacerbation requiring IV antibiotics, IV diuresis, close monitoring of renal function electrolytes an expert consultation Time Spent With Patient Time: Total time managing care of this patient today ____ minutes. Quality Stroke Does the patient have a stroke diagnosis?: No VTE Prior VTE?: No VTE Risk Level:: Medical - moderate - high VTE Device Contraindication: Treatment Not Indicated VTE Drug Contraindication: N/A - Med Ordered
[2023-06-05 19:05] VITALS: PULSE 87; RESP 19; O2SAT 90
--- NOTE | 2023-06-05 19:07 | PC.NURSE ---
pt a&o x4, calm, and cooperative. resting quietly on stretcher in no apparent distress. rr even/unlabored. denies pain. awaiting admit orders. allowed 1 ice cream per DEMARCUS Garza. alreadt given. pt ordered cardiac diet.
[2023-06-05 19:15] VITALS: BP 104/78; PULSE 79; RESP 18; TEMP 36.9; O2SAT 95
--- NOTE | 2023-06-05 19:27 | PC.NURSE ---
assumed care of patient at 1900 - pt resting comfortably on stretcher receiving duo neb treatment by respiratory therapist, pt medicated per oct, vital signs updated - call [facility] within reach, needs met. plan of care ongoing.
[2023-06-05 21:49] VITALS: BP 100/70; PULSE 89; RESP 18; TEMP 36.9; O2SAT 98
[2023-06-06] VITALS (7 sets, daily range): BP systolic 101–144; BP diastolic 71–83; PULSE 86–95; RESP 13–17; TEMP 36.1–37.2; O2SAT 93–98; BMI 25.5
--- NOTE | 2023-06-06 01:35 | PC.NURSE ---
This RN assumed care at 0130 from Daisy FELIX and Valentine RN. Patient yelling for lights to be turned off, informed that yelling is not appropriate and encouraged to use callbell.
--- NOTE | 2023-06-06 01:45 | PC.NURSE ---
pt refused seroquel administration at 20:42 as he said it was too early and he did not want to sleep just yet. med documented as not given at 20:42 as he was refusing. undone at 01:45 as pt is now asking for seroquel to help him sleep.
[2023-06-06 05:31] LABS: Anion Gap 15 (12-20); Blood Urea Nitrogen 10 mg/dL (9-16); Calcium 9.2 mg/dL (8.4-10.2); Carbon Dioxide 26 mmol/L (22-29); Chloride 98 mmol/L (96-108); Creatinine Clr Calc Pharmacy 80.2; Estimated Glomerular Filt Rate > 60; Glucose Random 102 mg/dL (60-115); Potassium 3.6 mmol/L (3.3-5.1); Sodium 135 mmol/L (135-145)
--- NOTE | 2023-06-06 07:00 | CA_ITS ---
Transthoracic Echocardiogram Patient (Last, First, Middle): Yobani Echeverria A Gender: Male Date of : 1955 Age: 67 Procedure Date: 06/06/2023 Procedure Type: Transthoracic Echocardiogram Location: S3E Height: 172.72 cm Weight: 79.83 kg BSA: 1.94 m2 Heart Rate: bpm BP: 113 / 78 mmHg Filling Carrier: Referring MD: Sangeeta TRACY Symptoms: new onset chf Study Quality: Adequate ECG Rhythm: Atrial Fibrillation Conclusions: - Normal left ventricular cavity size. There is moderately increased left ventricular wall thickness. The left ventricular systolic function is hyperdynamic. The visually estimated ejection fraction is >70%. - Normal right ventricular cavity size. There is low normal right ventricular systolic function. - The left atrium is severely dilated. - The prosthetic aortic valve appears to be functioning normally. - There is mild dilatation of the ascending aorta measuring 3.50 cm. Findings Left Ventricle Normal left ventricular cavity size. There is moderately increased left ventricular wall thickness. The left ventricular systolic function is hyperdynamic. The visually estimated ejection fraction is >70%. There is no evidence of regional wall motion abnormalities. Diastolic function is indeterminate on the basis of available data. Right Ventricle Normal right ventricular cavity size. There is low normal right ventricular systolic function. Atria The left atrium is severely dilated. Aortic Valve A bioprosthetic aortic valve is present. The prosthetic aortic valve appears to be functioning normally. There is no aortic valve stenosis. There is no aortic valve regurgitation. Mitral Valve The mitral valve was not well visualized. There is moderate mitral annular calcification. There is trace mitral valve regurgitation. There is no mitral valve stenosis. Pulmonic Valve The pulmonic valve is likely normal. There is trace pulmonic valve regurgitation. Tricuspid Valve Normal tricuspid valve structure. There is trace tricuspid valve regurgitation. Normal right atrial pressure. There is no evidence of pulmonary hypertension. Great Vessels There is mild dilatation of the ascending aorta measuring 3.50 cm. Venous The inferior vena cava is normal in size and collapses greater than 50% with inspiration. Pericardium/Pleural There is no evidence of pericardial effusion. Prior Study Comparison No prior study available for comparison. Measurements 2D Linear Measurements IVSd: 1.40 0.6-0.9/0.6-1.0 cm LVIDd: 3.51 3.9-5.3/4.2-5.9 cm LVIDd Index: 1.81 2.4-3.2/2.2-3.1 cm/m2 LVIDs: 2.51 2.0-3.6 cm LVPWd: 1.45 0.7-1.1 cm Ao Root: 3.70 2.1-3.5 cm LA Diam: 4.50 2.7-3.8/3.0-4.0 cm LAIDs Index: 2.32 1.5-2.3 cm/m2 LV Mass: 222.58 67-162/88-224 g LV Mass Index: 114.73 43-95/49-115 g/m2 LVOT Diam: 3.20 3.0+(-)1.3 cm Mitral Valve MV VTI: 0.28 MV Pk Mo: 1.35 MV Mn Mo: 0.80 MV Pk Grad: 7.00 MV Mn Grad: 3.00 MV Pk E: 1.35 MV Decel Time: 292.00 E'Lateral: 8.16 E'Medial: 5.11 E/E' Med: 26.40 E/E' Lat: 16.50 PHT: 86.00 MVA PHT: 2.56 MVA Continuity: 2.72 Decel Juab: 4.61 Aortic Valve AoV Pk Mo: 1.16 AoV Mn Mo: 0.77 AoV VTI: 0.20 AoV Pk Grad: 5.00 Aov Mn Grad: 3.00 [place] Cont.VTI: 3.85 LVOT LVOT Pk Mo: 0.61 LVOT Mn Mo: 0.44 LVOT VTI: 0.10 LVOT Pk Grad: 1.00 LVOT Mn Grad: 1.00 LVOT Diam: 3.20 LVOT Area: 8.04 Diastolic Function MV Pk E: 1.35 E'Medial: 5.11 E/E' Med: 26.40 E' Laterial: 8.16 E/E' Lat: 16.50 Right Ventricle TAPSE (mm): 18.00 TVS' Mo: 10.00 Tricuspid Valve TR Pk Mo: 2.72 TR Pk Grad: 30.00 RA Press: 3.00 RVSP: 33.00 Great Vessels Aorta Ao Root-2D: 3.70 2.0-3.7 cm Ao Asc: 3.50 2.1-3.4 cm Pulmonary Valve PV Pk Mo: 1.01 Peak PV Grad: 4.00 Updated in Other Vendor System with Status of Final Doron Pickard MD electronically signed on 06/06/2023 8:21:02 PM with status of Final
--- NOTE | 2023-06-06 12:03 | MHC.CM.PN ---
IMM 06/06/23 Patient lives by himself. He is independent with ADLs. He uses a cane to ambulate. [facility] has been referred to resume home services. [facility] assessment + for financial difficulty with medications. Family resource guide, EC pamphelet and [facility] cares info have been provided to the patient. A task has been sent to [facility] for an [employer] wind turbine technician referral. DP Resumption of [facility] home services. Patient states that he will arrange for transport home.
--- NOTE | 2023-06-06 12:47 | HO.PM.IMPN ---
Subjective Subjective Date of Service: 06/06/23 Interval History: Feels better reporting cough and dyspnea having edema in LE Physical Exam Vital Signs: Vital Signs: Last Vital Signs Temp 98 F 06/06/23 08:24 Pulse 95 06/06/23 08:24 Resp 17 06/06/23 08:24 BP 138/83 06/06/23 08:24 Pulse Ox 93 06/06/23 08:24 O2 Del Method Nasal Cannula 06/06/23 08:24 O2 Flow Rate 2 06/06/23 08:24 BMI result Body Mass Index 26.9 Const: Other: Constitutional : Awake, interactive, not in distress Neck : Normal inspection, Supple Cardiovascular : RRR, no JVP, +1 lower extremity edema more in LLE Respiratory : good bilateral air entry, basal fine crackles, wheezes or rhonchi Gastrointestinal: soft, lax, Normal bowel sounds, Non tender Skin : Warm, Dry Neurological : Alert & oriented x3, No focal deficit Objective Data Active Medications Acetaminophen (Acetaminophen 325 Mg Tablet) 650 mg PO Q6H PRN PRN Reason: Pain, Mild (Pain Scale 1-3) Albuterol Sulfate (Albuterol Sulfate 90 Mcg 8 Gm Inhaler) 2 puff INHALE Q4H PRN PRN Reason: Wheezing Albuterol/Ipratropium (Albuterol/Iprat 2.5/0.5mg 3 Ml Ampul.Neb) 3 ml INHALE RQ4H WHILE AWAKE [facility] Last Admin: 06/06/23 12:18 Dose: Not Given Documented By: ANUPAMA Non-Admin Reason: Patient Refused Amlodipine Besylate (Amlodipine Besylate 5 Mg Tablet) 5 mg PO DAILY [facility]; Protocol Last Admin: 06/06/23 09:03 Dose: 5 mg Documented By: IMANI Ascorbic Acid (Ascorbic Acid 500 Mg Tablet) 500 mg PO DAILY [facility] Last Admin: 06/06/23 09:02 Dose: 500 mg Documented By: IMANI Atorvastatin Calcium (Atorvastatin Calcium 80 Mg Tablet) 80 mg PO BEDTIME [facility] Last Admin: 06/05/23 20:42 Dose: 80 mg Documented By: KLEBER-VIRGILIO Docusate Sodium (Docusate Sodium 100 Mg Capsule) 100 mg PO DAILY PRN PRN Reason: Constipation Duloxetine HCl (Duloxetine Hcl 30 Mg Capsule.) 30 mg PO DAILY [facility] Last Admin: 06/06/23 09:03 Dose: 30 mg Documented By: IMANI Empagliflozin (Empagliflozin 10 Mg Tablet) 10 mg PO DAILY [facility] Last Admin: 06/06/23 09:20 Dose: 10 mg Documented By: IMANI Enoxaparin Sodium (Enoxaparin Sodium 40 Mg/0.4 Ml Syringe) 40 mg SUBCUT Q24H [facility] Last Admin: 06/05/23 19:07 Dose: 40 mg Documented By: ALFRED Finasteride (Finasteride 5 Mg Tablet) 5 mg PO DAILY [facility] Last Admin: 06/06/23 09:03 Dose: 5 mg Documented By: IMANI Fluticasone Propionate (Fluticasone Propionate Nasal 16 Gm [place]) 1 spray NOSTRIL-B DAILY [facility] Furosemide (Furosemide 40 Mg/4 Ml Vial) 40 mg IVPUSH DAILY [facility]; Protocol Last Admin: 06/06/23 09:01 Dose: 40 mg Documented By: IMANI Gabapentin (Gabapentin 600 Mg Tablet) 600 mg PO BID [facility] Last Admin: 06/06/23 09:03 Dose: 600 mg Documented By: IMANI Guaifenesin/Dextromethorphan (Guaifenesin Dm 600/30 1 Tab Tab.Er.12h) 1 tab PO Q12H [facility] Last Admin: 06/06/23 09:03 Dose: 1 tab Documented By: IMANI Ceftriaxone Sodium 1 gm/ (Sodium Chloride) 50 mls @ 100 mls/hr IV Q24H [facility] Doxycycline Hyclate 100 mg/ (Sodium Chloride) 250 mls @ 166.67 mls/hr IV Q12H [facility] Last Infusion: 06/06/23 10:47 Dose: Infused Documented By: IMANI Multi-Ingred Cream/Lotion/Oil/Oint (Artificial Tears Ophth Oint 3.5 Gm Tube) 1 appl EYE-BOTH BID [facility] Last Admin: 06/06/23 09:12 Dose: 1 appl Documented By: IMANI Multivitamins/Vitamin C (Multivitamin Tablet) 1 tab PO DAILY [facility] Last Admin: 06/06/23 09:03 Dose: 1 tab Documented By: IMANI Non-Formulary Medication (Kinllfrorg-Redutaod-Zqfnwlfpov [Breztri Aerosphere]) 2 inhalation INHALE BID [facility] Omeprazole (Omeprazole 20 Mg Capsule.) 20 mg PO DAILY@0630 [facility] Last Admin: 06/06/23 09:02 Dose: 20 mg Documented By: IMANI Ondansetron HCl (Ondansetron Hcl 4 Mg/2 Ml Vial) 4 mg IVPUSH Q8H PRN PRN Reason: Nausea and Vomiting Last Admin: 06/05/23 20:42 Dose: 4 mg Documented By: LAFRED Prednisone (Prednisone 10 Mg Tablet) 10 mg PO DAILY [facility] Stop: 06/10/23 09:01 Last Admin: 06/06/23 09:03 Dose: 10 mg Documented By: IMANI Quetiapine Fumarate (Quetiapine Fumarate 50 Mg Tablet) 50 mg PO BEDTIME [facility] Last Admin: 06/06/23 01:46 Dose: 50 mg Documented By: DENITA Simethicone (Simethicone 80 Mg Tab.Chew) 80 mg PO QIDWMHS PRN PRN Reason: bloating Sodium Chloride (0.9 % Sodium Chloride Flush 3 Ml Syringe) 3 ml IVFLUSH QSHIFT [facility] Last Admin: 06/06/23 09:01 Dose: 3 ml Documented By: IMANI Spironolactone (Spironolactone 25 Mg Tablet) 25 mg PO DAILY [facility]; Protocol Last Admin: 06/06/23 09:03 Dose: 25 mg Documented By: IMANI Tamsulosin HCl (Tamsulosin Hcl 0.4 Mg Capsule) 0.4 mg PO DAILY [facility] Last Admin: 06/06/23 09:03 Dose: 0.4 mg Documented By: IMANI Labs 06/06/23 04:12 06/06/23 04:12 Labs: Laboratory Results - last 24 hr 06/05/23 06/05/23 06/06/23 13:52 14:05 04:12 MCV 91.0 88.8 MCH 30.5 29.9 MCHC 33.6 33.7 RDW 13.4 13.3 Plt Count 229 236 MPV 9.9 9.8 Immature Gran % (Auto) 3.7 H 2.8 H Neut % (Auto) 66.3 67.7 Lymph % (Auto) 13.8 L 12.4 L [place] % (Auto) 14.6 H 15.9 H Eos % (Auto) 0.9 0.5 Baso % (Auto) 0.7 0.7 Lymph # (Auto) 0.9 L 0.8 L [place] # (Auto) 1.0 1.0 Eos # (Auto) 0.1 0.0 Baso # (Auto) 0.1 0.0 Abs Immat Gran (auto) 0.25 H 0.17 H Absolute Neuts (auto) 4.4 4.1 Absolute Nucleated RBC 0.000 0.000 Nucleated RBC % (auto) 0.0 0.0 D-Dimer High Sensitivty 726 Anion Gap 14 15 Estim Creat Clear Calc 83.2 80.2 Estimated GFR > 60 > 60 Random Glucose 90 102 Lactic Acid 1.3 Calcium 9.7 9.2 Total Bilirubin 0.5 AST 25 ALT 13 Alkaline Phosphatase 55 B-Natriuretic Peptide 336 H 317 H Total Protein 6.9 Albumin 3.5 Lipase 40 COVID-19 ([facility]) Negative COVID-19 Clin Com See Note Influenza Type A (AZAR) Negative Influenza Type B (AZAR) Negative Influenza A & B Note See Note Assessment and Plan (1) New onset of congestive heart failure: Status: Acute (2) Pneumonia: Status: Acute (3) Cellulitis of left lower leg: Status: Acute (4) Hypoxia: Status: Acute Plan 67-year-old male with history of sarcoidosis, paroxysmal atrial fibrillation not on anticoagulation, hypertension, and alcohol use disorder admitted for acute LLL pneumonia with acute hypoxemic respiratory failure and newly diagnosed CHF. # acute hypoxemic respiratory failure secondary to left lower lobe pneumonia and CHF IV ceftriaxone 1 g and IV doxy (initiated 06/05) sputum culture pending DuoNebs follow cultures # acute CHF exacerbation Pending Echo 40 mg IV Lasix daily I&O Echocardiogram cardiology consult # left lower extremity cellulitis Failed OP Amoxicillin. venous duplex negative On ceftriaxone and doxy as above # sarcoidosis continue prednisone prescribed by outpatient provider continue maintenance inhalers, albuterol p.r.n. # PAF not on anticoagulation rate controlled patient is not on anticoagulation or aspirin. will check with cardiology # hypertension continue amlodipine, spironolactone DVT prophylaxis-Lovenox Full code Patient requires inpatient stay overnight for management of acute hypoxemic respiratory failure secondary to pneumonia and CHF exacerbation requiring IV antibiotics, IV diuresis, close monitoring of renal function electrolytes an expert consultation Time Spent With Patient Time: Total time managing care of this patient today ____ minutes. Quality Stroke Does the patient have a stroke diagnosis?: No VTE Prior VTE?: No VTE Risk Level:: Medical - moderate - high VTE Device Contraindication: Treatment Not Indicated VTE Drug Contraindication: N/A - Med Ordered
--- NOTE | 2023-06-06 14:02 | PM.CNCAR ---
History of Present Illness History of Present Illness Date of Service: 06/06/23 Requesting physician: Trell Garcia Chief complaint: New onset CHF, pneumonia acute hypoxia Narrative: [age] gentleman who we have been asked to assess for question congestive heart failure. He presented with shortness of breath and edema. Chest x-ray was showing left-sided pleural effusion. He has background history of bicuspid aortic valve stenosis for which he underwent aortic valve replacement in 2015. He follows with Dr. Ortega at [facility]. He is saying he has been short of breath and coughing. Quite wheezy on examination. Laying flat in bed. Denying any orthopnea or PND. He has been on IV diuretics at this stage. No coronary disease history based on angiography performed before aortic valve replacement in 2014. He has been following with Dr. Hernandez closely. [facility] Past Medical History Medical History Alcohol use disorder Hypertension Atrial fibrillation Sarcoidosis Social History Social History Household Members: None Housing: House Do you presently have visiting nurse or other home services: Yes Alcohol intake: current Alcohol intake frequency: 3 or more drinks per day Alcohol type: beer and hard liquor Patient Tobacco Use Status: Never used Tobacco Smoked in Last 30 Days: No Use of substances other than those prescribed or required for medical reasons: No Have you been hit, kicked, punched, or otherwise hurt by someone within the past year? If so, by whom?: No Do you feel safe in your current relationship?: No Current Relationship Is there a partner from a previous relationship who is making you feel unsafe now?: No Are you made to feel afraid or neglected: No Advance Directives: Yes Advance Directives on File: Yes Advance Directives Date on File: 05/30/23 Do you have thoughts of harming others: None Do you have a plan to hurt others: No Plan Recently lost weight without trying: No Eating poorly because of decreased appetite: No Nutrition Risks: No Nutritional Risk Poor oral hygiene: No service: No Meds Allergies Allergy/AdvReac Type Severity Reaction Status Date / Time diltiazem AdvReac Intermediate unknown Verified 05/29/23 17:34 nifedipine AdvReac Mild unknown Verified 05/29/23 17:34 Active Medications: Current Medications Acetaminophen (Acetaminophen 325 Mg Tablet) 650 mg PO Q6H PRN PRN Reason: Pain, Mild (Pain Scale 1-3) Albuterol Sulfate (Albuterol Sulfate 90 Mcg 8 Gm Inhaler) 2 puff INHALE Q4H PRN PRN Reason: Wheezing Albuterol/Ipratropium (Albuterol/Iprat 2.5/0.5mg 3 Ml Ampul.Neb) 3 ml INHALE RQ4H WHILE AWAKE [facility] Last Admin: 06/06/23 12:18 Dose: Not Given Amlodipine Besylate (Amlodipine Besylate 5 Mg Tablet) 5 mg PO DAILY [facility]; Protocol Last Admin: 06/06/23 09:03 Dose: 5 mg Ascorbic Acid (Ascorbic Acid 500 Mg Tablet) 500 mg PO DAILY [facility] Last Admin: 06/06/23 09:02 Dose: 500 mg Atorvastatin Calcium (Atorvastatin Calcium 80 Mg Tablet) 80 mg PO BEDTIME [facility] Last Admin: 06/05/23 20:42 Dose: 80 mg Docusate Sodium (Docusate Sodium 100 Mg Capsule) 100 mg PO DAILY PRN PRN Reason: Constipation Duloxetine HCl (Duloxetine Hcl 30 Mg Capsule.Dr) 30 mg PO DAILY [facility] Last Admin: 06/06/23 09:03 Dose: 30 mg Empagliflozin (Empagliflozin 10 Mg Tablet) 10 mg PO DAILY [facility] Last Admin: 06/06/23 09:20 Dose: 10 mg Enoxaparin Sodium (Enoxaparin Sodium 40 Mg/0.4 Ml Syringe) 40 mg SUBCUT Q24H [facility] Last Admin: 06/05/23 19:07 Dose: 40 mg Finasteride (Finasteride 5 Mg Tablet) 5 mg PO DAILY [facility] Last Admin: 06/06/23 09:03 Dose: 5 mg Fluticasone Propionate (Fluticasone Propionate Nasal 16 Gm [place]) 1 spray NOSTRIL-B DAILY [facility] Last Admin: 06/06/23 13:05 Dose: Not Given Furosemide (Furosemide 40 Mg/4 Ml Vial) 40 mg IVPUSH DAILY [facility]; Protocol Last Admin: 06/06/23 09:01 Dose: 40 mg Gabapentin (Gabapentin 600 Mg Tablet) 600 mg PO BID [facility] Last Admin: 06/06/23 09:03 Dose: 600 mg Guaifenesin/Dextromethorphan (Guaifenesin Dm 600/30 1 Tab Tab.Er.12h) 1 tab PO Q12H [facility] Last Admin: 06/06/23 09:03 Dose: 1 tab Ceftriaxone Sodium 1 gm/ (Sodium Chloride) 50 mls @ 100 mls/hr IV Q24H [facility] Doxycycline Hyclate 100 mg/ (Sodium Chloride) 250 mls @ 166.67 mls/hr IV Q12H [facility] Last Infusion: 06/06/23 10:47 Dose: Infused Multi-Ingred Cream/Lotion/Oil/Oint (Artificial Tears Ophth Oint 3.5 Gm Tube) 1 appl EYE-BOTH BID [facility] Last Admin: 06/06/23 09:12 Dose: 1 appl Multivitamins/Vitamin C (Multivitamin Tablet) 1 tab PO DAILY [facility] Last Admin: 06/06/23 09:03 Dose: 1 tab Non-Formulary Medication (Xynancszci-Yfyztznd-Ecukmeihky [Breztri Aerosphere]) 2 inhalation INHALE BID [facility] Omeprazole (Omeprazole 20 Mg Capsule.Dr) 20 mg PO DAILY@0630 [facility] Last Admin: 06/06/23 09:02 Dose: 20 mg Ondansetron HCl (Ondansetron Hcl 4 Mg/2 Ml Vial) 4 mg IVPUSH Q8H PRN PRN Reason: Nausea and Vomiting Last Admin: 06/05/23 20:42 Dose: 4 mg Prednisone (Prednisone 10 Mg Tablet) 10 mg PO DAILY [facility] Stop: 06/10/23 09:01 Last Admin: 06/06/23 09:03 Dose: 10 mg Quetiapine Fumarate (Quetiapine Fumarate 50 Mg Tablet) 50 mg PO BEDTIME [facility] Last Admin: 06/06/23 01:46 Dose: 50 mg Simethicone (Simethicone 80 Mg Tab.Chew) 80 mg PO QIDWMHS PRN PRN Reason: bloating Sodium Chloride (0.9 % Sodium Chloride Flush 3 Ml Syringe) 3 ml IVFLUSH QSHIFT [facility] Last Admin: 06/06/23 09:01 Dose: 3 ml Spironolactone (Spironolactone 25 Mg Tablet) 25 mg PO DAILY [facility]; Protocol Last Admin: 06/06/23 09:03 Dose: 25 mg Tamsulosin HCl (Tamsulosin Hcl 0.4 Mg Capsule) 0.4 mg PO DAILY [facility] Last Admin: 06/06/23 09:03 Dose: 0.4 mg Home Medications Medication Instructions Recorded Confirmed Last Taken Type amlodipine 5 mg tablet 5 mg PO DAILY 05/26/23 06/05/23 06/05/23 History duloxetine 30 mg capsule,delayed 30 mg PO DAILY 05/26/23 06/05/23 06/05/23 History release empagliflozin 10 mg tablet 10 mg PO DAILY 05/26/23 06/05/23 06/05/23 History (Jardiance) finasteride 5 mg tablet 5 mg PO DAILY 05/26/23 06/05/23 06/05/23 History fluticasone propionate 50 1 spray intranasal DAILY 05/26/23 06/05/23 06/05/23 History mcg/actuation nasal spray,suspension gabapentin 600 mg tablet 600 mg PO BID 05/26/23 06/05/23 06/05/23 History omeprazole 20 mg capsule,delayed 20 mg PO DAILY 05/26/23 06/05/23 06/05/23 History release prednisone 5 mg tablet 10 mg PO DAILY 05/26/23 06/05/23 06/05/23 History quetiapine 25 mg tablet 50 mg PO BEDTIME 05/26/23 06/05/23 06/04/23 History rosuvastatin 20 mg tablet 20 mg PO BEDTIME 05/26/23 06/05/23 06/04/23 History spironolactone 25 mg tablet 25 mg PO DAILY 05/26/23 06/05/23 06/05/23 History tamsulosin 0.4 mg capsule 0.4 mg PO DAILY 05/26/23 06/05/23 06/05/23 History Probiotic 1 cap PO DAILY 06/05/23 06/05/23 06/05/23 History albuterol sulfate 90 mcg/actuation 2 puff inhalation Q4-6H PRN 06/05/23 06/05/23 Unknown History aerosol inhaler Wheezing ascorbic acid (vitamin C) 500 mg 500 mg PO DAILY 06/05/23 06/05/23 06/05/23 History tablet budesonide 160 mcg-glycopyr 9 2 inh inhalation BID 06/05/23 06/05/23 06/05/23 History mcg-formot 4.8 mcg/actuation HFA inhaler (Breztri Aerosphere) dextromethorphan-guaifenesin ER 60 1 tab PO Q12H 06/05/23 06/05/23 06/05/23 History mg-1,200 mg tab,extend release,12hr (Mucinex DM) multivitamin 1 tab PO DAILY 06/05/23 06/05/23 06/05/23 History potassium 99 mg tablet 99 mg PO DAILY 06/05/23 06/05/23 06/05/23 History povidone (PF) 0.5 % eye drops 1 drp ophthalmic (eye) BID 06/05/23 06/05/23 06/05/23 History (iVizia (PF)) Physical Exam Vital Signs: Vital Signs: Last Vital Signs Temp 98 F 06/06/23 08:24 Pulse 95 06/06/23 08:24 Resp 17 06/06/23 08:24 BP 138/83 06/06/23 08:24 Pulse Ox 93 06/06/23 08:24 O2 Del Method Nasal Cannula 06/06/23 08:24 O2 Flow Rate 2 06/06/23 08:24 BMI result Body Mass Index 26.9 GENERAL APPEARANCE: in no acute distress, short of breath. Wheezing. NECK: no carotid bruit, no significant jugular venous distention. SKIN: no suspicious lesions, warm and dry. HEART: no murmurs, regular rate and rhythm. LUNGS: Bilateral wheezes. ABDOMEN: soft, nontender. EXTREMITIES: no edema. PERIPHERAL PULSES: equal. NEUROLOGIC: No gross deficits, AAO X 3 Objective Labs and Meds 06/06/23 04:12 06/06/23 04:12 Lab results: Laboratory Results - last 24 hr 06/05/23 06/05/23 06/05/23 13:52 14:05 14:07 WBC RBC Hgb Hct MCV MCH MCHC RDW Plt Count MPV Immature Gran % (Auto) Neut % (Auto) Lymph % (Auto) [place] % (Auto) Eos % (Auto) Baso % (Auto) Lymph # (Auto) [place] # (Auto) Eos # (Auto) Baso # (Auto) Abs Immat Gran (auto) Absolute Neuts (auto) Absolute Nucleated RBC Nucleated RBC % (auto) D-Dimer High Sensitivty 726 Sodium 135 Potassium 4.1 Chloride 99 Carbon Dioxide 26 Anion Gap 14 BUN 12 Creatinine 0.81 Estim Creat Clear Calc 83.2 Estimated GFR > 60 Random Glucose 90 Lactic Acid 1.3 Calcium 9.7 Total Bilirubin 0.5 AST 25 ALT 13 Alkaline Phosphatase 55 Troponin I High Sens 8.7 B-Natriuretic Peptide 336 H Total Protein 6.9 Albumin 3.5 Lipase 40 COVID-19 ([facility]) Negative COVID-19 Clin Com See Note Influenza Type A (AZAR) Negative Influenza Type B (AZAR) Negative Influenza A & B Note See Note 06/06/23 04:12 WBC 6.0 RBC 4.48 L Hgb 13.4 L Hct 39.8 L MCV 88.8 MCH 29.9 MCHC 33.7 RDW 13.3 Plt Count 236 MPV 9.8 Immature Gran % (Auto) 2.8 H Neut % (Auto) 67.7 Lymph % (Auto) 12.4 L [place] % (Auto) 15.9 H Eos % (Auto) 0.5 Baso % (Auto) 0.7 Lymph # (Auto) 0.8 L [place] # (Auto) 1.0 Eos # (Auto) 0.0 Baso # (Auto) 0.0 Abs Immat Gran (auto) 0.17 H Absolute Neuts (auto) 4.1 Absolute Nucleated RBC 0.000 Nucleated RBC % (auto) 0.0 D-Dimer High Sensitivty Sodium 135 Potassium 3.6 Chloride 98 Carbon Dioxide 26 Anion Gap 15 BUN 10 Creatinine 0.84 Estim Creat Clear Calc 80.2 Estimated GFR > 60 Random Glucose 102 Lactic Acid Calcium 9.2 Total Bilirubin AST ALT Alkaline Phosphatase Troponin I High Sens B-Natriuretic Peptide 317 H Total Protein Albumin Lipase COVID-19 ([facility]) COVID-19 Clin Com Influenza Type A (AZAR) Influenza Type B (AZAR) Influenza A & B Note Imaging Radiologist's impression: Impressions Venous Duplex 06/05/23 15:20 IMPRESSION: No DVT demonstrated in the left lower extremity. Assessment and Plan (1) S/P AVR: Status: Acute (2) New onset of congestive heart failure: Status: Acute (3) Pneumonia: Status: Acute Plan [age] gentleman who we have been asked to assess for episode of congestive heart failure. It appears he has underlying pneumonia and is wheezing. He was already given diuretics and based on discussion with Hospital Medicine he had edema which has improved today. Overall he is still quite wheezy on examination and I think the underlying process is bronchospasm due to pneumonia. I am not sure he is in significant heart failure or has heart failure. He has left-sided pleural effusion which could be infectious. He clearly is quite confused and having difficulty remembering things. If he does not improve with antibiotics then doing a thoracentesis for diagnostic purposes should be considered. Would avoid further diuretics. Will review echocardiography and if there is any obvious cardiomyopathy any issues then we will adjust medications. Thank you for allowing me to participate in the care of your patient. Please feel free to contact me if you have any questions. Time Spent With Patient Time: Total time managing care of this patient today ____ minutes. Procedures Date of Service Date of Service: 06/06/23
--- NOTE | 2023-06-06 14:11 | MHC.RECOVRN ---
Met with pt in 362 after consult placed to Addiction Medicine for alcohol use. Pt had presented to the ED for shortness of breath and weight gain. Pt subsequently admitted for new onset CHF, hypoxia, pneumonia, and cellulitis. Pt sitting in bed, awake, alert, easily engages in conversation. Pt reports drinking 2 beers, 2 shots vodka, and 1-2 shots bourbon daily. Pt states I'm pretty much in control. Pt denies hx AUD treatment. Pt is not interested in reducing or abstaining from alcohol, states It's my enjoyment. Pt aware ACS is available if he would like to discuss further. Denies questions or concerns at this time. Discussed with Nelly Albright APRN.
--- NOTE | 2023-06-06 14:25 | MHC.CLN ---
NUTRITION PATIENT ASLEEP AT TIME OF VISIT. LEFT INFORMATION PACKET FOR HEART HEALTHY DIET IN ROOM.
[2023-06-06] MEDS: Enoxaparin Sodium 40 MG/0.4 ML SYRINGE SUBCUT (18:13)
[2023-06-06] MEDS: guaiFENesin DM 600/30 1 TAB TAB.ER.12H PO (18:14)
[2023-06-06] MEDS: Doxycycline Hyclate 100 MG in 0.9 % Sodium Chloride 250 ML 166.67 MG IV (18:26)
[2023-06-06] MEDS: Atorvastatin Calcium 80 MG TABLET PO (19:54)
[2023-06-06] MEDS: Gabapentin 600 MG TABLET PO (19:54)
[2023-06-06] MEDS: Acetaminophen 325 MG TABLET 650 MG PO (19:54)
[2023-06-06] MEDS: QUEtiapine Fumarate 50 MG TABLET PO (19:55)
[2023-06-06] MEDS: Albuterol/Iprat 2.5/0.5MG 3 ML AMPUL.NEB INHALE (20:34)
[2023-06-07 03:18] VITALS: BP 156/90; PULSE 80; RESP 18; TEMP 36.6; O2SAT 95
[2023-06-07] MEDS: Throat Lozenge, Medicated LOZENGE 1 LOZENGE MUCOUS MEM ×2 (05:46→08:57)
[2023-06-07] MEDS: guaiFENesin DM 600/30 1 TAB TAB.ER.12H PO (05:46)
[2023-06-07] MEDS: Omeprazole 20 MG CAPSULE.DR PO (05:46)
[2023-06-07] MEDS: Doxycycline Hyclate 100 MG in 0.9 % Sodium Chloride 250 ML 166.67 MG IV (06:00)
[2023-06-07 06:52] VITALS: BP 119/69; PULSE 76; RESP 17; TEMP 36.6; O2SAT 98
[2023-06-07 07:20] LABS: B Type Natriuretic Peptide 349 pg/mL (<100)
[2023-06-07 07:22] LABS: Anion Gap 16 (12-20); Blood Urea Nitrogen 13 mg/dL (9-16); Carbon Dioxide 28 mmol/L (22-29); Chloride 98 mmol/L (96-108); Creatinine Clr Calc Pharmacy 78.4; Estimated Glomerular Filt Rate > 60; Glucose Random 95 mg/dL (60-115); Sodium 138 mmol/L (135-145)
[2023-06-07] MEDS: Albuterol/Iprat 2.5/0.5MG 3 ML AMPUL.NEB INHALE (07:53)
[2023-06-07 07:56] VITALS: PULSE 68; RESP 16; O2SAT 97
[2023-06-07] MEDS: Spironolactone 25 MG TABLET PO (08:09)
[2023-06-07] MEDS: Gabapentin 600 MG TABLET PO (08:09)
[2023-06-07] MEDS: Ascorbic Acid 500 MG TABLET PO (08:09)
[2023-06-07] MEDS: predniSONE 10 MG TABLET PO (08:10)
[2023-06-07] MEDS: Finasteride 5 MG TABLET PO (08:10)
[2023-06-07] MEDS: DULoxetine HCl 30 MG CAPSULE.DR PO (08:10)
[2023-06-07] MEDS: Empagliflozin 10 MG TABLET PO (08:10)
[2023-06-07] MEDS: amLODIPine Besylate 5 MG TABLET PO (08:10)
[2023-06-07] MEDS: Tamsulosin HCL 0.4 MG CAPSULE PO (08:10)
[2023-06-07] MEDS: Multivitamin TABLET 1 TAB PO (08:10)
--- NOTE | 2023-06-07 11:03 | PM.DS ---
DS: Providers Provider Date of Service: 06/07/23 Date of admission: 06/05/23 19:45 Primary care physician: Onel Haile MD Consults: 06/05/23 17:38 Consult to Cardiology Routine Consulting Provider: [facility] Reason for consultation: new onset chf 06/05/23 18:01 Addiction Medicine Routine Consulting Provider: Addiction Covering Reason for consultation: etoh use disorder DS: Diagnosis Discharge Diagnosis (1) S/P AVR: Status: Acute (2) New onset of congestive heart failure: Status: Acute (3) Pneumonia: Status: Acute DS: Summary Hospital Course Hospital Course: From initial HPI: 67-year-old male with history of sarcoidosis, paroxysmal atrial fibrillation not on anticoagulation, hypertension, and alcohol use disorder presents to the ED earlier today for evaluation of shortness of breath and weight gain. He reports for about 2-3 days he has been experiencing dyspnea on exertion with increased bilateral lower extremity edema and this morning noted 9 lb weight gain over the last 3 days. He tells me this morning he woke up and was hypoxic to 80%. He tells me about 1 week ago he was started on amoxicillin for cellulitis in the left lower extremity and completed course as advised. He is also reporting abdominal bloating. Denies any fevers, chills, sore throat, abdominal pain, nausea, vomiting, diarrhea, melena, hematochezia, lightheadedness, cough, palpitations, or chest pain. He tells me he was advised by lead relay tester start prednisone about 2 weeks ago but not start this. On arrival, patient hypoxic in the 80s, placed on 2 L supplemental O2, now maintaining oximetry around 94%. There is no leukocytosis. Renal function and electrolyte levels are normal. BNP elevated at 336. Troponin within normal limits. Negative for COVID-19, influenza. Venous duplex of left lower extremity negative for DVT. Chest x-ray shows moderate left pleural effusion with underlying atelectasis and left lower lobe infiltrate versus atelectasis with cardiomegaly and prominent pulmonary vascularity with question of mild congestion. in the ED, given 1 g IV ceftriaxone and 500 mg IV azithromycin. hospital course: Patient was admitted for acute hypoxic respiratory failure secondary to left lower lobe pneumonia and acute on chronic diastolic CHF. Should with IV ceftriaxone and doxycycline and will be transitioned to 5 more days of cefuroxime and azithromycin. He was able to be weaned off oxygen and is feeling much better. For acute on chronic diastolic CHF he received IV Lasix, diuresed well and Lasix will be held on discharge. For left lower extremity cellulitis he was given antibiotics as above will be continued. For sarcoidosis was continued on prednisone. Paroxysmal atrial fibrillation was continued on aspirin. For hypertension was continue amlodipine and spironolactone. Patient has been better will be discharged home. vna to okay to start on or before 06/10/23 Time Spent with Patient Time attestation: Total time managing care of this patient today ____ minutes. Discharge coordination time: Greater than 30 minutes Quality: Safe Use of Opioids Does Pt have an Active Cancer Diagnosis on the Problem List?: No Quality: Stroke Does the patient have a stroke diagnosis?: No Physical Exam Vital Signs: Vital Signs: Last Vital Signs Temp 98 F 06/07/23 06:52 Pulse 68 06/07/23 07:56 Resp 16 06/07/23 07:56 BP 119/69 06/07/23 06:52 Pulse Ox 98 06/07/23 06:52 O2 Del Method Nasal Cannula 06/07/23 06:52 O2 Flow Rate 2 06/07/23 06:52 BMI result Body Mass Index 25.5 GENERAL APPEARANCE: in no acute distress, short of breath. Wheezing. NECK: no carotid bruit, no significant jugular venous distention. SKIN: no suspicious lesions, warm and dry. HEART: no murmurs, regular rate and rhythm. LUNGS: Bilateral wheezes. ABDOMEN: soft, nontender. EXTREMITIES: no edema. PERIPHERAL PULSES: equal. NEUROLOGIC: No gross deficits, AAO X 3 DS: Data Data Completed and Pending Labs on day of discharge: Laboratory Results - last 24 hr 06/07/23 05:39 Sodium 138 Potassium 4.0 Chloride 98 Carbon Dioxide 28 Anion Gap 16 BUN 13 Creatinine 0.86 Estim Creat Clear Calc 78.4 Estimated GFR > 60 Random Glucose 95 Calcium 10.0 D B-Natriuretic Peptide 349 H Preliminary micro results at discharge 06/05/23 14:33 Blood Culture - Preliminary Blood - Venous No growth after 24 hours. 06/05/23 14:07 Blood Culture - Preliminary Blood - Venous No growth after 24 hours. Discharge Plan Discharge Anticipated Discharge Date/Time: 06/07/23 10:59 Patient Disposition: Home Health Service Discharge Diagnosis: pna Referrals: Onel Haile MD [Primary Care Provider] - 1 Week Discharge Medications: New cefuroxime axetil 500 mg tablet 500 mg PO BID Qty: 10 0RF azithromycin 500 mg tablet 500 mg PO DAILY 5 Days Qty: 5 0RF Continued ondansetron 4 mg tablet,disintegrating 4 mg PO Q6H PRN (Reason: nausea and vomiting) Qty: 10 0RF multivitamin Tablet 1 tab PO DAILY potassium 99 mg Tablet 99 mg PO DAILY ascorbic acid (vitamin C) 500 mg Tablet 500 mg PO DAILY dextromethorphan-guaifenesin [Mucinex DM] 60-1,200 mg Tablet Extended Release 12 Hr 1 tab PO Q12H albuterol sulfate 90 mcg/actuation Hfa Aerosol Inhaler 2 puff INHALATION Q4-6H PRN (Reason: Wheezing) Breztri Aerosphere 160-9-4.8 mcg/actuation Hfa Aerosol Inhaler 2 inh INHALATION BID Probiotic 1 cap PO DAILY iVizia (PF) 0.5 % Drops 1 drp OPHTHALMIC (EYE) BID fluticasone propionate 50 mcg/actuation spray,suspension 1 spray intranasal DAILY Jardiance 10 mg tablet 10 mg PO DAILY duloxetine 30 mg capsule,delayed release(DR/EC) 30 mg PO DAILY rosuvastatin 20 mg tablet 20 mg PO BEDTIME finasteride 5 mg tablet 5 mg PO DAILY omeprazole 20 mg capsule,delayed release(DR/EC) 20 mg PO DAILY spironolactone 25 mg tablet 25 mg PO DAILY amlodipine 5 mg tablet 5 mg PO DAILY prednisone 5 mg tablet 10 mg PO DAILY gabapentin 600 mg tablet 600 mg PO BID tamsulosin 0.4 mg capsule 0.4 mg PO DAILY quetiapine 25 mg tablet 50 mg PO BEDTIME Discharge Orders: Discharge Order (Routine); Ordered 06/07/23 Ordered By: Dustin Dumont Diet: Advance to usual diet Activity on Discharge: As tolerated Stand Alone Forms: Patient Portal Discharge page Care Plan Goals: recovery Health Concerns: pna Plan of Treatment: 5 more days abx Assessment: see above
[2023-06-09 23:09] LABS: Strep Pneumo Ag urine Not Detected (Not Detected)
[2023-06-11 00:48] LABS: Legionella Ag Urine Not Detected (Not Detected)
== END 2023-06-07 13:00 | disposition home health service (06) | DRG 193 ==
LOC: HO.ED 15:59 → HO.EDOVER 19:46 → HO.S3 06-06 06:10
PROVIDERS: Student in an Organized Health Care Education/Training Program; Admitting Provider Physician Assistant; Emergency Provider Student in an Organized Health Care Education/Training Program; PCP Family Medicine; Visit Provider Internal Medicine
DX: J18.9 Pneumonia, unspecified organism (principal); I50.31 Acute diastolic (congestive) heart failure; J96.01 Acute respiratory failure with hypoxia; L03.116 Cellulitis of left lower limb; I11.0 Hypertensive heart disease with heart failure; J98.01 Acute bronchospasm; I48.0 Paroxysmal atrial fibrillation; Z20.822 Contact with and (suspected) exposure to COVID-19; Z79.51 Long term (current) use of inhaled steroids; Z79.52 Long term (current) use of systemic steroids; Z79.899 Other long term (current) drug therapy
CPT/HCPCS: 36415; 71045; 80048; 80053; 83605; 83690; 83880; 84484; 85025; 85379; 87040; 87070; 87205; 87449; 87502; 87635; 87899; 93005; 93306; 93971; 94640; 99285; J0456; J0696; J1650; J1940; J2405

== ENCOUNTER 2023-06-05 19:45 | Outpatient (BNV) | payer MEDICARE, OTHER, SELFPAY | END 2023-06-06 07:00 | PROVIDERS: Admitting Provider Physician Assistant; Emergency Provider Student in an Organized Health Care Education/Training Program; PCP Family Medicine; Visit Provider Internal Medicine Cardiovascular Disease | DX: I48.91 Unspecified atrial fibrillation (principal); I50.9 Heart failure, unspecified | CPT/HCPCS: 93306 ==

== ENCOUNTER → 2023-06-05 19:45 | Outpatient (BNV) | payer MEDICARE, OTHER, SELFPAY | PROVIDERS: Admitting Provider Physician Assistant; Emergency Provider Student in an Organized Health Care Education/Training Program; PCP Family Medicine; Visit Provider Physician Assistant | DX: I50.9 Heart failure, unspecified (principal); Z95.2 Presence of prosthetic heart valve; J18.9 Pneumonia, unspecified organism | CPT/HCPCS: 99223; 99233; 99239 ==

== ENCOUNTER → 2023-06-05 19:45 | Outpatient (BNV) | payer MEDICARE, OTHER, SELFPAY | PROVIDERS: Admitting Provider Physician Assistant; Emergency Provider Student in an Organized Health Care Education/Training Program; PCP Family Medicine; Visit Provider Internal Medicine Cardiovascular Disease | DX: Z95.2 Presence of prosthetic heart valve (principal); I50.9 Heart failure, unspecified; J18.9 Pneumonia, unspecified organism | CPT/HCPCS: 99223 ==

== ENCOUNTER 2024-12-29 16:31 | Emergency (ER) | payer MEDICARE, MEDICAID, SELFPAY ==
[2024-12-29] VITALS (8 sets, daily range): BP systolic 86–150; BP diastolic 46–90; PULSE 73–89; RESP 15–18; TEMP 36.2–36.7; O2SAT 95–99; BMI 23.1
--- NOTE | ~2024-12-29 | CT_ITS ---
CLINICAL HISTORY: abd pain constipation CT abdomen and pelvis without contrast Comparison: None Findings: Extensive mitral and aortic annular calcification. Moderate left atrial dilation measuring 8.5 cm in diameter. No pericardial effusion. Moderate bilateral pleural effusions, loculated in the left. Moderate bilateral perinephric stranding. No hydronephrosis or nephrolithiasis. Remainder of the solid organs are within normal limits. No bowel obstruction, pneumoperitoneum, or pneumatosis. Redundant colon with moderate colonic stool burden. Moderately distended urinary bladder measuring 15 cm in craniocaudal dimension pelvic structures are otherwise unremarkable. Normal appendix. Moderate anterior superior compression deformity of the L1 vertebral body. Moderate to severe multilevel spondylosis of the visualized thoracolumbar spine. IMPRESSION: Moderately redundant colon with moderate stool burden, concerning for chronic constipation. Extensive mitral and aortic annular calcification and moderate left atrial dilation. Moderate bilateral pleural effusions, loculated in the left, concerning for fluid overload/ CHF. Moderately distended urinary bladder measuring 15 cm in craniocaudal dimension. Emptying is suggested. Chronic moderate anterior compression deformity of the L1 vertebral body. Moderate to severe multilevel spondylosis of the visualized thoracolumbar spine. This document has been electronically signed by: Nancy Espinosa MD on 12/29/2024 19:52:33
--- OUTSIDE RECORDS SUMMARY | 2024-12-29 17:54 | XMS_ITS | Encounter Summary ---
Author Organization [employer] Address [address] [place] [address] Care Team Providers Care [place] Representative Name Role Phone Unavailable Primary Care Provider Unavailabl e Reason for Visit * Reason Onset Date Comments case back from lab 02/01/2024 Encounter Details Date Type Department Care Team (Late st Contact Info) Description 02/01/2024 Telephone [facility] [address] [place] [address] Reji Salazar DDS [address] [place] [address] case back from lab Social History Tobacco Use Types Packs/Day Years Used Date Smoking Tobacco: Never Passive Smoke Exposure: Never Smokeless Tobacco: Never Alcohol Use Standard Drinks/Week Comments Yes 12 (1 standard drink = 0.6 oz pu re alcohol) Sex and Gender Information Value Date Recorded Sex Assigned at Male 06/26/2022 10:24 AM EDT Legal Sex Male 10:24 AM EDT Gender Identity Male 06/26/2022 10:24 AM EDT Sexual Orientation Straight 06/26/2022 10 :24 AM EDT documented as of this encounter Miscellaneous Notes * Telephone Encounter - Nitza Milner - 02/12/2024 10:47 [address] EDT Message for Dr. Salazar and welcome desk agent [facility] Patient calling in checking in on status of case if back from lab. He states its been more than 2 weeks and would like an appt. Sending message to front man as well due to Dr Nicole limited schedule in the event that they are able to help patient. Please reach out to patient whether on provider or FD side * Telephone Encounter - Evita Fraser - 02/01/2024 12:55 PM EDT Patient called looking for his dentures he like to come in if there in the office . documented in this encounter Plan of Treatment Upcoming Encounters Date Type Department Care Team (Late st Contact Info) Description 12/31/2024 9:00 AM EDT Office Visit [facility] [address] [place] [address] Leandra Berrios 01/06/2025 10:00 AM EDT Office Visit [facility] [address] [place] [address] Reji Salazar DDS [address] [place] [address] documented as of this encounter Visit Diagnoses Not on filedocumented in this encounter
--- OUTSIDE RECORDS SUMMARY | 2024-12-29 17:54 | XMS_ITS | Data Portability ---
Author Organization [place] [facility] Address [address] [place] [id number] Care Team Providers Care Fork Assembler Name Role Phone KATHRINE DAVID Primary Care Provider Assessment Encounter Date Assessment Date Assessment LastModified by Organization Details LastModified Time 04/30/2020 04/30/2020 Overview/History : 64yoM new to pmhx heart bovine heart valve replacement, HTN, HDL, is seen today for feeling off balance. On Sunday night 04/28/2020 accidentally took his morning medications at night time. In doing this he missed his Amlodipine dose and Seroquel dose. He was unable to sleep that night and at 5am 04/29/2020 took his Seroquel. Since that time he has felt off balance. Yesterday he took his medications daily. Patient does admit to daily ETOH use with 2-3 hard drinks a day and then a couple of beers. Last drink was last night and admits to having a couple of beers. The patient does admit to regular marijuana use and denies any other drug use. He denies any falls or head trauma. Denies any new medications. The patient denies room spinning dizziness, KINCAID, vision changes, chest pain, shortness of breathe, palpitations, or feeling like he is going to pass out. Exam: VSS patient is well appearing Heart and lung sounds are clear No LE edema Abdomen is soft and non tender Steady gait but the patient is unable to tandem walk Patient is not hyper-reflexive and has a neg hoffmans reflex 5/5 motor throughout all 4 extremities at all joints L eye strabismus PERRLA, EOMI without nystagmus CN III-XII intact Neg pronator drift Patient is able to perform finger to nose and heel down vogel cerebellar testing without difficulty DDx considered, but not limited to: Dehydration ETOH intoxication ETOH withdrawal CVA, posterior CVA Cervical myelopathy electrolyte abnormality ACS PE Arrhythmia Work up/Results: Chem 8 normal and HH stable Plan/Discussion: The patient is hemodynamically stable non toxic appearing with a normal neuro exam including cerebellar testing. The patient is c.o two days of feeling off balance. He denies feeling like he is going to pass out, any palpitations, cp or sob-doubt ACS, PE, or arrhythmia. Patient is not clinically intoxicated at this time. He does have mild tremors but states those are normal for him. dOubt ETOH withdrawal as he is not tachycardic or hypertensive. Considered CVA and posterior CVA, however neuro exam is without any abnormalities. Considered cervical myelopathy, however the patient is not myelopathic on exam and is without any neck pain or radicular symptoms. Lab work was performed to evaluate for electrolyte abnormalities or anemia. I personally went over all lab work and vital signs with the patient. He was encouraged to make close follow up with his PCP and to seek immediate medical care if he continues to feel off balanced tomorrow of again seek immediate care if he develops a headache, vision changes, numbness and tingling, weakness, chest pain, shortness of breathe or palpitations. He verbalized understanding and was agreeable with overall plan. Proper Personal Protective Equipment (PPE), including gloves, eye protection and masks were donned and doffed appropriately and all equipment cleaned using approved technique with germicidal disposable wipes prior to and after care of this patient according to [facility]'s infection prevention protocols. Lab Results BMP + ionized calcium, serum or plasma glu: 93mg/dL ref: 70-105 BUN: 19mg/dL ref: 8-26 crea: 0.9mg/dL ref: 0.6-1.3 Na: 138mmol/L ref: 138-146 K: 4.2mmol/L ref: 3.5-4.9 cL: 99mmol/L ref: 98-109 TCO2: 26mmol/L ref: 24-29 angap: 18mmol/L ref: 10-20 ica: 1.24mmol/L ref: 1.12-1.32 HCT: 48%pcv ref: 37-47 Hb: 16.3g/dL ref: 12-17 Time On Scene with Patient: 00:39:26 [email or web address] Not available 04/30/2020 17:23:36 Plan of Treatment Reminders Order Date Submit Date Provider Last Modified By Organization Details Last Modified Time Details Appointments None recorded. Lab BMP + ionized calcium, serum or plasma [address] [facility], [place], [address], 0 16:37:17 Referral None recorded. Procedures None recorded. Surgeries None recorded. Imaging None recorded. Medication Orders None recorded. Patient TargetsNo targets recorded. Patient Instructions Encounter Date Encounter Id Patient Instructions Last Modified By Organization Details Last Modified Time 04/30/2020 [id number] TODAY YOU WERE SEEN FOR FEELING OFF BALANCE YOUR VITAL SIGNS WERE NOTED BELOW: Temp 98.1 Pulse 58 Blood pressure 138/68 Respiratory rate 18 Oxygen saturation 96% LAB WORK WAS PERFORMED TODAY THAT WAS ALL NORMAL CONTINUE TO DRINK PLENTY OF FLUIDS CALL YOUR PRIMARY CARE PROVIDER FOR A FOLLOW UP PLEASE SEEK IMMEDIATE MEDICAL CARE IF YOU DEVELOP A HEADACHE, BLURRED VISION, ROOM SPINNING DIZZINESS, NUMBNESS, TINGLING, WEAKNESS, CHEST PAIN, SHORTNESS OF BREATHE, OR FEEL LIKE YOU ARE GOING TO PASS OUT. Thank you for your visit with [facility] today. We cannot always find the exact cause of your symptoms during your initial visit. Please follow up with your primary care provider or specialist within 12-24 hours within 24-48 hours to be rechecked or seek medical attention if your symptoms do not go away or get worse. If you develop any new or worsening symptoms and need after hours care, please go to nearest ER and/or call 911. If you have additional concerns or develop a change in your condition between 8am-10pm, please call [facility] at [phone] to help navigate your care. Not available 04/30/2020 16:34:47 Reason for Referral None Reported. Results Created Date Observation Date Name Description Value Unit Range Abnormal Flag Note LastModifiedBy Organization Detail LastModifiedTime 04/30/20 20 04/30/2020 BMP + ioniz ed calci um, serum or plasm a glu 93 mg/dL 70-105 Not Available Den Cayla rodr[facility] [address] [place], [address], 04/30/2020 16:37:17 04/30/20 20 04/30/2020 BMP + ioniz ed calci um, serum or plasm a BUN 19 mg/dL 8-26 Not Available [address], [address], 04/30/2020 16:37:17 04/30/20 20 04/30/2020 BMP + ioniz ed calci um, serum or plasm a crea 0.9 mg/dL 0.6-1. 3 Not Available [address], [address], 04/30/2020 16:37:17 04/30/20 20 04/30/2020 BMP + ioniz ed calci um, serum or plasm a Na 138 mmol/ L 138-14 6 Not Available [address], [address], 04/30/2020 16:37:17 04/30/20 20 04/30/2020 BMP + ioniz ed calci um, serum or plasm a K 4.2 mmol/ L 3.5-4. 9 Not Available [address], [address], 04/30/2020 16:37:17 04/30/20 20 04/30/2020 BMP + ioniz ed calci um, serum or plasm a cL 99 mmol/ L 98-109 Not Available [address], [address], 04/30/2020 16:37:17 04/30/20 20 04/30/2020 BMP + ioniz ed calci um, serum or plasm a TCO2 26 mmol/ L 24-29 Not Available [address], [address], 04/30/2020 16:37:17 04/30/20 20 04/30/2020 BMP + ioniz ed calci um, serum or plasm a angap 18 mmol/ L 10-20 Not Available Den [facility] [address] [place], [address], 04/30/2020 16:37:17 04/30/20 20 04/30/2020 BMP + ioniz ed calci um, serum or plasm a ica 1.24 mmol/ L 1.12-1 .32 Not Available Den [facility] [address] [place], [address], 04/30/2020 16:37:17 04/30/20 20 04/30/2020 BMP + ioniz ed calci um, serum or plasm a HCT 48 %pcv 37-47 Not Available [facility] [address] [place], [address], 04/30/2020 16:37:17 04/30/20 20 04/30/2020 BMP + ioniz ed calci um, serum or plasm a Hb 16.3 g/dL 12-17 Not Available [facility] [address] [place], [address], 04/30/2020 16:37:17 Result Notes None recorded. Procedures Surgical History Date Name Laterality Status Provider Name and Address Organization Details Recorded Time 04/30/20 20 Venipuncture - DH completed DEMARCUS SUAREZ [address] [place], [address], [place] [facility] 05/07/2020 08:44:02 procedure on heart valve completed DEMARCUS SUAREZ [address] [place], [address], [place] [facility] 04/30/2020 16:13:26 surgical procedure on cervical spine completed DEMARCUS SUAREZ [address] [place], [address], [place] [facility] 04/30/2020 16:13:36 Imaging Results None recorded. Procedure Notes None recorded. Medical Equipment None Reported. Allergies Allergen ID Allergen Name Allergen Category Reaction Reaction Severity Criticality Documentation Date Start Date Code Code System Note Provider Name and Address Organization Details Recorded Time 624998 diltiazem Not available Not available Not available Not available 04/30/2020 3443 RxNorm DEMARCUS SUAREZ [address] [place], [place], [address], [place] [facility] 0 16:05:59 577224 nifedipin e medicatio n Not available Not available Not available 04/30/2020 7417 RxNorm DEMARCUS SUAREZ [address] [place], [place], [address], [place] [facility] 0 16:06:09 Medications Name Sig Start Date Stop Date Status Note LastModified by Organization Details LastModified Time quetiapine 25 mg tablet active Not Available Not Available Not Available amoxicillin 500 mg capsule active Not Available Not Available Not Available ketoconazol e 2 % shampoo active Not Available Not Available Not Available fluconazole 150 mg tablet active Not Available Not Available Not Available Nystop 100,000 unit/gram topical powder ANN MARIE EXT AA TO THE GROIN AFTER SHOWERS MAINTENEN CE active Not Available Not Available No t Available amlodipine 5 mg tablet active Not Available Not Available Not Available sulfamethox azole 800 mg-trimetho prim 160 mg tablet TK 1 T PO BID FOR 10 DAYS. DRK PLENTY OF FLUIDS 04/30 completed Not Available Not Available Not Available amoxicillin 500 mg tablet 04/30 completed Not Available Not Available Not Available DOK 100 mg capsule TK 1 C PO TID PRN FOR CONSTIPAT ION active Not Available Not Available No t Available econazole nitrate 1 % topical cream active Not Available Not Available Not Available polymyxin B sulfate 10,000 unit-trimet hoprim 1 mg/mL eye drops active Not Available Not Available Not Available omeprazole 20 mg capsule,del ayed release active Not Available Not Available Not Available gabapentin 100 mg capsule active Not Available Not Available Not Available polyethylen e glycol 3350 17 gram/dose oral powder active Not Available Not Available Not Available ketoconazol e 2 % topical cream active Not Available Not Available Not Available fluticasone propionate 50 mcg/actuati on nasal spray,suspe nsion SPRAY 1 SPRAY INTO EACH NOSTRIL BID active Not Available Not Available No t Available naproxen 500 mg tablet 04/30 completed Not Available Not Available Not Available rosuvastati n 20 mg tablet active Not Available Not Available Not Available metoprolol tartrate 25 mg tablet active Not Available Not Available No t Available loratadine active Not Available Not Av ailable Not Available aspirin active Not Available Not Avail able Not Available folic acid active Not Available Not Av ailable Not Available Vitals Date Recorded Body temperature Heart rate Oxygen saturation Oxygen saturation in Arterial blood by Pulse oximetry Respiratory rate Systolic blood pressure Diastolic blood pressure Provider Name and Address Organization Details Last Updated DateTime 0 98.1 [degF] 58 /min 96 % 96 % 18 /min 138 mm[Hg] 68 mm[Hg] Not Available [facility] 0 16:12:25 Social History Question Answer Notes LastModified by Organizat ion Details LastModified Time Tobacco Smoking Status Never Smoker occasional marijuana DEMARCUS SUAREZ [address], [place], [address], [place] [facility] 04/30/2020 16:08:27 Do You Have An Advance Directive? No [email or web address] Information not available 04/30/2020 What Is Your Code Status? Full Code [email or web address] Information not available 04/30/2020 Within The Past 12 Months, Has It Happened That The Food You Bought Just Didn't Last And You Didn't Have Money To Get More. No [email or web address] Information not available 04/30/2020 Within The Past 12 Months, Have You Worried That Your Food Would Run Out Before You Got Money To Buy More. No Information not available 04/30/2020 Fall Risk: Do You Feel Unsteady When Standing Or Walking? Yes [email or web address] Information not available 04/30/2020 We Know That How And When People Interact With Friends And Family Can Be Very Different From Person To Person. How Often Do You Have The Opportunity To See Or Talk To People That You Care About And Feel Close To? (Ex: Talking To Friends On The Phone Or Visiting Friends Or Family Or Going To [employer] Or Club Meetings) 1 Or 2 Times Per Week [email or web address] Information not available 04/30/2020 Excessive Alcohol Or Drug Use Yes 2-3 Drinks And A Beer Daily [email or web address] Information not available 04/30/2020 We Know From Many Of Our Patients That Covering All Of Their Costs Can Be Difficult At Times. This Can Cause Stress And Impact Health. In The Past Year, Have You Been Unable To Get Any Of The Following When It Was Really Needed? No [email or web address] Information not available 04/30/2020 What Is Your Housing Situation Today? I Have Housing [email or web address] Information not available 04/30/2020 Would You Like Help Connecting To Resources? None [email or web address] Information not available 04/30/2020 Sex: Unknown Functional Status None recorded. Mental Status None recorded. Family History Relationship Description Onset Age of this Age Resolved Age Notes LastModified by Organization Details LastModified Time Father No current problems or disability Not available 04/30 16:07:46 Mother No current problems or disability [email or web address] Not available 04/30 16:07:46 Medical History Condition Response Coronary Artery Disease Y COPD N Diabetes N Cancer N Stroke N Asthma N High Cholesterol Y Pulmonary Embolism N Hypertension Y Kidney Disease N Past Encounters Encounter ID Performer Location Encounter Start Date Encounter Closed Date Diagnosis/Indication Diagnosis SNOMED-CT Code Diagnosis ICD10 Code Diagnosis Note [id number] DEMARCUS SUAREZ [facility] [address] [place] [address] 04/30/2020 15:54:30 05/05/2020 14:18:51 Lightheadedness [id number] R42 Impairment of balance 38 9952685 R26.89 Health Concerns Section Related Observation LastModified by Organization Detai ls LastModified Time None Recorded Concern Status LastModified by Organization Details LastModified Time None Recorded Advance Directives Directive N: Payers Encounter Date Sequence Insurance Name Policy Number Policy Mesa Covered Member ID Mesa Member ID Guarantor Name 04/30/2020 1 MEDICARE B-[place]: [facility] [employer] [facility] [id number] 3 [facility] 04/30/2020 2 [facility] (MEDICARE SUPPLEMENT) [facility] [id number] [facility] Notes Date Note Type Note Provider Name and Address Organization Details Recorded Time 04/30/2020 text/html 64yoM new to pmhx heart valve replacement, HTN, HDL, daily ETOH use is see today for feeling off balance. Normally the patient takes his Aspirin, Gabapentin, Loratadine, Metoprolol, and Omeprazole in the morning and in the eening takes his Amlodipine, Gabapenting, Metoprolol, Quetiapine, and Rosuvastatin before bed. On the night of 04/28/2020 he accidentally took his morning medications at night as well. He could not sleep that night and at 5am on 04/29/2020 took his Quetiapine. Since yesterday he has felt more off balance. He reports sleeping well last night and taking his medications as previously directed. He denies any falls or head injury. Took his medications appropriately yesterday. Last drank a couple beers last night. Denies fever, cough, chest pain, shortness of breathe or palpitations. He denies abdominal pain, nausea, vomiting or diarrhea. He denies any hematochezia or melena. Denies KINCAID, blurred vision, numbness and tingling or weakness. He does report feeling unsteady when he walks. Denies any room spinning dizziness. DEMARCUS SUAREZ [facility] [address], [place], [address], [place] [facility] 05/07/2020 08:44:10
--- OUTSIDE RECORDS SUMMARY | 2024-12-29 17:54 | XMS_ITS | Encounter Summary ---
Author Organization [employer] Address [address] [facility] [address] [place] [address] Care Team Providers Care Chart Picker Name Role Phone Unavailable Primary Care Provider Unavailabl e Reason for Visit * Reason Onset Date Comments medication 08/24/2023 Encounter Details Date Type Department Care Team ([facility] st Contact Info) Description 08/24/2023 Telephone [facility] [address] [place] [address] Yessica Connolly DDS [address] [place] [address] medication Social History Tobacco Use Types Packs/Day Years [...] * Telephone Encounter - Nitza Milner - 08/24/2023 3:25 PM EST Patient called in stating that script was supposed to be sent to pharmacy yesterday. He's looking to see if it can be sent but he added a different pharmacy [facility] [address] [facility] [place] [facility] [place] [facility]. I added the pharmacy onto his chart but did not removeKristi because that is his main pharmacy. Only this script [facility] on [address] [place] [address] documented in this encounter Plan of Treatment Upcoming Encounters Date Type Department Care Team (Late st Contact Info) Description 12/31/2024 9:00 AM EDT Office Visit [facility] [address] [place] [address] Leandra Berrios 01/06/2025 10:00 AM EDT Office Visit [facility] [address] [facility] [place] [address] Reji Salazar DDS [address] [place], [place] [id number] documented as of this encounter Visit Diagnoses Not on filedocumented in this encounter
--- OUTSIDE RECORDS SUMMARY | 2024-12-29 17:54 | XMS_ITS | Clinical Summary ---
Author Organization [address] [facility] Address [address] [place] [address] Phone Care Team Providers Care Box Toe Flanger Stitchdowns Name Role Phone Luis Bravo MD Primary Care Provider [phone] Social History Tobacco Use Types Packs/Day Years Used Date Smoking Tobacco: Never Assessed Sex and Gender Information Value Date Recorded Sex Assigned at Not on file Legal Sex Male 7:58 PM EST Gender Identity Not on file Sexual Orientation Not on file Plan of Treatment Health Maintenance Due Date Last Done Comments COVID-19 Vaccine (#1) 1960 DTaP,Tdap,and Td Vaccines (1 - Tdap) 1972 Pneumococcal Vaccine: 50+ Ye ars (1 of 2 - PCV) 1972 Zoster Vaccines (1 of 2) 1972 Abdominal Aortic Aneurysm (A AA) Screen 09/04/2024 Cholesterol Screening (Lipid Panel) 09/04/2024 Colorectal Cancer Screening: Colonoscopy 09/04/2024 Depression Screening 09/04/2024 Falls Risk Assessment 09/04/2024 Hepatitis C Screening 09/04/2024 Medicare Annual Wellness Visit 09/04/2024 Social Influencers of Health Screening 09/04/2024 Influenza Vaccine (Season Ended) 2025 RSV Immunization Adult Patie nts (1 - 1-dose 75+ series) 2028 HIB Vaccines Aged Out No longer eligi ble based on patient's age to complete this topic HPV Vaccines Aged Out No longer eligi ble based on patient's age to complete this topic Hepatitis A Vaccines Aged Out No long er eligible based on patient's age to complete this topic Hepatitis B Vaccines Aged Out No long er eligible based on patient's age to complete this topic IPV Vaccines Aged Out No longer eligi ble based on patient's age to complete this topic MMR Vaccines Aged Out No longer eligi ble based on patient's age to complete this topic Meningococcal ACWY Vaccine Aged Out N o longer eligible based on patient's age to complete this topic Meningococcal B Vaccine Aged Out No l onger eligible based on patient's age to complete this topic RSV Immunization Patients Un andre 20 months Aged Out No longer eligible b ased on patient's age to complete this topic Varicella Vaccines Aged Out No longer eligible based on patient's age to complete this topic Insurance MEDICARE [place]ICA[place] - [place] Care Teams Box Toe Flanger Stitchdowns Relationship Specialty Start Date End Date Luis Bravo MD [facility] [address] [place], [place] PCP - General Internal Medicine 02/21/17
--- OUTSIDE RECORDS SUMMARY | 2024-12-29 17:54 | XMS_ITS ---
Author Organization [facility] Address [address] [place] [address] Care Team Providers Care Centerless Grinder Tender Name Role Phone Onel Haile MD Primary Care Provider Unava ilable Dory Albert Unavailable [phone] REASON FOR VISIT question Encounters Encounter Location Date Provider Diagnosis [address] [address] 12/24/2024 Dory Albert Plan Of Treatment Next Appt Details Provider Name:Dory Hugo Roosevelt , 01/05/2025 10:15:00 AM, [address] [place], [address], Progress Notes * Yobani TERRELL ADOB:[birth year] (69 yo M)Acc No.[id number]:12/24/2024 Patient:?Yobani TERRELL :1955???Age:69 Y???Sex:Male Address:[address] [place] [address], [address] * true * Date:? Generated for Printi jeanna/Orion/eTransmitting on:?12/29/2024 05:54 PM EDT
--- OUTSIDE RECORDS SUMMARY | 2024-12-29 17:54 | XMS_ITS | Encounter Summary ---
Author Organization [facility] Address [address] [facility] [address] [place] [address] Care Team Providers Care Athletic Trainer Name Role Phone Unavailable Primary Care Provider Unavailabl e Encounter Details Date Type Department Care Team (Latest Contact Info) Description 09/26/2019 Abstract [facility] CONVERSIONS Dental, Provider, DDS Social History Tobacco Use Types Packs/Day Years Used Date Smoking Tobacco: Never Assessed Sex and Gender Information Value Date Recorded Sex Assigned at Male 06/26/2022 10:24 AM EDT Legal Sex Male 10:24 AM EDT Gender Identity Male 06/26/2022 10:24 AM EDT Sexual Orientation Straight 06/26/2022 10 :24 AM EDT documented as of this encounter Plan of Treatment Upcoming Encounters Date Type Department Care Team ( st Contact Info) Description 12/31/2024 9:00 AM EDT Office Visit [facility] ADULT DENTAL [address] [place] [address] Leandra Berrios 01/06/2025 10:00 AM EDT Office Visit [facility] ADULT DENTAL [address] [place] [address] Reji Salazar DDS [address] [place] [address] documented as of this encounter Visit Diagnoses Not on filedocumented in this encounter
--- OUTSIDE RECORDS SUMMARY | 2024-12-29 17:54 | XMS_ITS | Encounter Summary ---
Author Organization [facility] Address [id number] [place] [id number] Care Team Providers Care Power Lineman Technician Name Role Phone Luis Bravo MD Primary Care Provider [phone] Encounter Details Date Type Department Care Team (Late st Contact Info) Description 09/03/2024 Lab Requisition [facility] - Main Lab [address] [facility] [employer] [address] Pillo Pham III, MD [address] [place] [address] [place] [phone] Basal cell carcinoma of skin of other part of trunk Social History Tobacco Use Types Packs/Day Years Used Date Smoking Tobacco: Never Assessed Sex and Gender Information Value Date Recorded Sex Assigned at Not on file Legal Sex Male 7:58 PM EST Gender Identity Not on file Sexual Orientation Not on file documented as of this encounter Plan of Treatment Not on file documented as of this encounter Procedures Procedure Name Priority Date/Time Associated Diagnosis Comments TISSUE EXAM Routine 09/02/2024 Basal cell carcinoma of skin of other part of trunk documented in this encounter Results * Tissue Exam (09/02/2024) Final Diagnosis Skin, mid chest, excision: Focal superficial basal cell carcinoma - Margins uninvolved Dermal scar 09/05/2024 11:21 AM EST [facility] Clinical Information Basal cell carcinoma chest Suture - short superior, long lateral C44.519 09/05/2024 11:21 AM EST [facility] Gross Description A. Chest, Mid, skin excision: Labeled basal cell carcinoma chest suture short superior, long lateral . Received in formalin is a 4.4 x 1.3 cm oriented lawrence-white skin ellipse excised to depth of 0.4 cm. There is a long suture and one tip, designating lateral and a short suture on one edge designating superior per the requisition. The epidermis displays a 0.8 x 0.5 cm central well-healed scar, located 0.2 cm of the 12:00 margin. The superior margin is inked blue, inferior black, epidermis of lateral tip green. The specimen is sectioned in a cruciate manner. Showroom Manager sections, to include the entirety of the scar, are submitted as follows: 1, cruciate medial and lateral tips (lateral epidermis inked green), two pieces 2-4, sequential transverse cross-sections from lateral to medial, two pieces each KVNG 09/05/2024 11:21 AM [facility] Disclaimer Unless otherwise specified, all tissue is 10% NB formalin fixed and paraffin embedded. 09/05/2024 11:21 AM [facility] Tissue Thoracic structure / Unknown 09/02/2024 09/03/2024 3:39 PM EST us Pillo Pham III, MD LAB PATHOLOGY ORDERABLES Fi nal Result [facility] [address] [place] [address], documented in this encounter Visit Diagnoses Diagnosis Basal cell carcinoma of skin of other part of trunk documented in this encounter Care Teams Power Lineman Technician Relationship Specialty Start Date End Date Luis Bravo MD [address] [place] [address] [address] [place], [place] PCP - General Internal Medicine 02/21/17 documented as of this encounter
--- OUTSIDE RECORDS SUMMARY | 2024-12-29 17:54 | XMS_ITS ---
Author Organization [facility] Address [address] [place] [address] Care Team Providers Care Package Delivery Room Service Runner Name Role Phone Mic WOODS, Onel Primary Care Provider Unava ilable Black, Dory Unavailable [phone] Allergies Allergen (clinical drug ingredient) Drug/Non Drug Allergy documented on EMR Reaction Allergy Type Onset Date Status diltiazem Diltiazem HCl Unknown Drug Allergy Act aldair nifedipine NIFEdipine Unknown Drug Allergy Activ e REASON FOR VISIT pcp-12/19, Painful Toe(s), Open sore - Toe, Possible Infection Medications Medication SIG (Take, Route, Frequency, Duration) Notes Start Date End Date Status Augmentin 500-125 MG 1 tablet Orally Twice a day for 10 day(s) 01/15/2019 Unknown Augmentin 500-125 MG 1 tablet Orally Twice a day for 7 days 11/26/2018 Unknown Cephalexin 500 MG 1 tablet Orally Twice a day for 10 day(s) Unknown Sulfamethoxazole-Trime thoprim 400-80 MG 1 tablet Orally Once a day for 10 day(s) 12/23/2024 Active Lactobacillus Acid-Pectin 200 MG Unknown Naproxen 500 MG Orally Twice a day Unknown Thiamine 100 Mg Once a day Unk nown amLODIPine Besylate 5 MG Orally Once a day Unknown Furosemide Unknown Loratadine Unknown Amoxicillin-Pot Clavulanate 500-125 MG TK 1 T PO BID FOR 7 DAYS Oral for 7 Days Not-Taking Amoxicillin 500 MG Orally only for dentist Unknown Aspirin 81 MG Orally Unknow n Fluticasone Furoate Nasally Twice daily Unknown Metoprolol Succinate 25 MG Unknown Amoxicillin-Pot Clavulanate 500-125 MG TK 1 T PO BID FOR 7 DAYS Oral for 7 Days Not-Taking Rosuvastatin Calcium 20 MG Orally Active Amoxicillin-Pot Clavulanate 500-125 MG TK 1 T PO BID FOR 7 DAYS Oral for 7 Days Not-Taking Amoxicillin-Pot Clavulanate 500-125 MG TK 1 T PO BID FOR 7 DAYS Oral for 7 Days Not-Taking Amoxicillin-Pot Clavulanate 500-125 MG TK 1 T PO BID FOR 7 DAYS Oral for 7 Days Not-Taking Torsemide 20 MG 1 tablet Orally Once a day Active Primidone 50 MG 1 tablet Orally Once a day Active Multivitamin Active Omeprazole 20 MG Orally Act aldair QUEtiapine Fumarate 25 MG Orally Once a day Active Jardiance 10 MG 1 tablet Orally Once a day Active oxyCODONE HCl Active Fiber Laxative Activ e amLODIPine Besylate Active predniSONE 1 MG 2 tablets with food or milk Orally Once a day Active Spironolactone 25 MG 1 tablet Orally Active Senna 8.6 MG 2 tablets at bedtime as needed Orally Once a day Active Loratadine 10 MG 1 tablet Orally Once a day Active Gabapentin 800 MG 1 tablet Orally Once a day Active Finasteride Active Docusate Sodium 100 MG 1 capsule as needed Orally Once a day Active Vitamin B1 100 MG 1 tablet Orally Once a day Active Tamsulosin HCl 0.4 MG 1 capsule Orally Once a day Active Silvadene 1 % 1 application Externally Once a day for 30 days 12/23/2024 Active Social History Tobacco Use: Social History Observation Description Date Details (start date - stop date) Never Smoker NA - NA Tobacco use other than smoking: Question Answer Notes Are you an other tobacco user? No Tobacco Control (Standard) Question Answer Notes Tobacco use: Nonsmoker Additional Findings: Tobacco non-user Current no nsmoker AUDIT-C (Standard) Question Answer Notes Did you have a drink contain ing alcohol in the past year? Yes How often did you have a dri nk containing alcohol in the past year? Daily or almost daily (4 points) How many drinks did you have on a typical day when you were drinking in the past year? Declined to specify (0 point) How often did you have six o r more drinks on one occasion in the past year? Declined to specify (0 point) Points 4 Interpretation Positive Problems Problem Type SNOMED Code ICD Code Onset Dates Problem Status W/U Status Risk Notes Problem Acquired hammer toe of right foot (34804769848 95956) Other hammer toe(s) (acquired), right foot (M20.41) Active confirmed Problem Acquired hammer toe of left foot (75017575919 86557) Other hammer toe(s) (acquired), left foot (M20.42) Active confirmed Problem Ulcer of toe of left foot (disorder) (16846909945 594772) Skin ulcer of toe of left foot, limited to breakdown of skin (L97.521) Active confirmed Response to treatment Nonapplicable Nonapplicable Problem Ulcer of toe of right foot (disorder) (77851369553 014123) Skin ulcer of toe of right foot, limited to breakdown of skin (L97.511) Active confirmed Response to treatment Nonapplicable Vital Signs Height 5 ft 8 in in 12/23/2024 Weight 160 lbs 12/23/2024 BMI 24.33 kg/m2 12/23/2024 Blood pressure systolic 130 mm Hg 12/24/19 25 Blood pressure diastolic 70 mm Hg 025 Procedures Procedure Date Ordered Date Performed Result Body Sit e [address]45- Debride <25 sq cm 12/23/2024 N/A Encounters Encounter Location Date Provider Diagnosis [facility] [address] [address] 12/23/2024 Dory Black Pain in right toe(s) M79.674 ; Cellulitis of toe of right foot L03.031 ; Other hammer toe(s) (acquired), right foot M20.41 ; Arthritis of joint of lesser toe, right M19.071 ; Pain in left toe(s) M79.675 ; Other hammer toe(s) (acquired), left foot M20.42 ; Arthritis of joint of lesser toe, left M19.072 ; Subluxation of metatarsophalangeal joint of toe, initial encounter S93.149A ; Skin ulcer of toe of left foot, limited to breakdown of skin L97.521 ; Skin ulcer of toe of right foot, limited to breakdown of skin L97.511 and Cellulitis of toe of left foot L03.032 Assessments Encounter Date Diagnosis (ICD Code) Assessment Notes Treatment Notes Treatment Clinical Notes Section Notes 12/23/2024 Pain in right toe(s) (ICD-10 - M79.674) 12/23/2024 Cellulitis of toe of right foot (ICD-10 - L03.031) 12/23/2024 Other hammer toe(s) (acquired), right foot (ICD-10 - M20.41) 12/23/2024 Arthritis of joint o f lesser toe, right (ICD-10 - M19.071) 12/23/2024 Pain in left toe(s) (ICD-10 - M79.675) 12/23/2024 Other hammer toe(s) (acquired), left foot (ICD-10 - M20.42) 12/23/2024 Arthritis of joint o f lesser toe, left (ICD-10 - M19.072) 12/23/2024 Subluxation of metatarsophalangeal joint of toe, initial encounter (ICD-10 - S93.149A) 12/23/2024 Skin ulcer of toe of left foot, limited to breakdown of skin (ICD-10 - L97.521) Response to treatment Nonapplicable Nonapplicable Patient Educated with: WOUND CARE INSTRUCTIONS .pdf (WOUND CARE INSTRUCTIONS .pdf) 12/23/2024 Skin ulcer of toe of right foot, limited to breakdown of skin (ICD-10 - L97.511) Response to treatment Nonapplicable Patient Educated with: WOUND CARE INSTRUCTIONS .pdf (WOUND CARE INSTRUCTIONS .pdf) 12/23/2024 Cellulitis of toe of left foot (ICD-10 - L03.032) Plan Of Treatment Medication Medication Name Sig Start Date Stop Date Notes Sulfamethoxazole-Trimethopri m 400-80 MG 1 tablet Orally Once a day for 10 day(s) 12/23/2024 Silvadene 1 % 1 application Motion Picture Projectionist Apprentice ally Once a day for 30 days 12/23/2024 Treatment Notes Assessment Notes Skin ulcer of toe of left fo ot, limited to breakdown of skin Patient Educated with: WOUND CARE INSTRUCTIONS.pdf (WOUND CARE INSTRUCTIONS.pdf) Skin ulcer of toe of right f oot, limited to breakdown of skin Patient Educated with: WOUND CARE INSTRUCTIONS.pdf (WOUND CARE INSTRUCTIONS.pdf) Pending Test Test Name Order Date 44598- Debride <25 sq cm 12/23/2024 Next Appt Details Follow Up: 2 Weeks, Reason: Provider Name:Dory Albert , 01/05/2025 10:15:00 AM, [address] [place], [address], Procedure Notes * Category Sub-Category Detail Notes Debride skin< 25 sq cm Open wound Physician of record performed open wound selective debridement of first 25 sq cm or less, of devitilized necrotic/nonviable soft tissue, fibrin, and exudate extending from the epidermis through the dermis, utilizing sharp dissection with sterile 15 blade, and/or tissue nippers. Sterile antibiotic dressing applied, ANESTHESIA- was accomplished TOPICALLY with Lidocaine Hydrochloride Jelly 2 percent. Hemostasis was achieved through direct pressure. Post debridement measurements: T7=5 mm x 5mm x 2mm. T2 8mmX 4mm X2mm Character of the wound post debridement is stable (98581) Progress Notes * Yobani TERRELL ADOB:[birth year] (69 yo M)Acc No.[id number]:12/23/2024 Progress Notes Patient:?Yobani TERRELL Provider:?Dory Albert DPM :1955???Age:69 Y???Sex:Male Jesse e:12/23/2024 Address:[address] [place], [place] [id number] Pcp:Onel Haile MD Subjective: * Chief Complaints: * ???Pcp-12/19Painful Toe(s)Op en sore - ToePossible Infection * HPI: ???Toe pain:?Nature:?tenderness.?Location:?B/L feet.?Duration:?, several weeks.?Onset/Cause:?gradual.?Course:?worse.?Aggravated by:?shoes, any pressure.?Treatments:?rest/alter normal daily activity, change in shoes.?Skin problems:?Nature:?redness, swelling , tender.?Location:?, B/L 3rd toes.?Duration:?, several months.?Course:?worse.?Treatments:?oral antibiotics.? * ROS:?General/Constitutional:?Nausea?denies.?Vomiting?denies.?Hunger Thirst?denies.?Loss appetite?denies.?Chills?denies.?Fatigue?denies.?Fever?denies.?Night Sweats?denies.?Unexplained weight loss?denies.?Unexplained weight gain?denies.?HEENTM:?Dentures?denies.?Dizziness?denies.?Glasses/contacts?admits.?Retinopathy?de nies.?Blurred/double vision?denies.?TMJ?denies.?Discharge/drainage?denies.?Implants?denies.?Sore throat?denies.?Dental implants?denies.?Hard of hearing ?denies.?Difficulty chewing/swallowing/speaking?denies.?Nose bleeds?denies.?Sore mouth?denies.?Respiratory:?On Oxygen?denies.?Pneumonia/pleurisy?denies.?Bronchitis?denies.?Emphysema?denies.?C oughing?denies.?Cough blood?denies.?Shortness of breath?admits.?Wheezing?denies.?Cardiovascular:?Pacemaker?denies.?MVP?denies.?WPW?denies.?CHF?denies.?Heart attack?denies.?Septal defect?denies.?Rapid beat?denies.?Chest pain ?denies.?Atrial Fib.?denies.?Murmur/Palpitations?denies.?Gastrointestinal:?Hemorrhoids?denies.?Stomach/Abdominal pain?denies.?Dark blood stool?denies.?Irritable bowel ?denies.?Constipation?denies.?Diarrhea?denies.?Hematology:?Swelling?denies.?Clots?denies.?Varicose Veins?denies.?Bruising?denies.?Bleeding problem?denies.?Genitourinary:?Blood urine?denies.?Frequent/Painfu/urination/bladder control?denies.?Kidney stones?denies.?Infection (UTI)?denies.?Nephropathy?denies.?sex trans dis (STD)?denies.?Prostate?denies.?Musculoskeletal:?Hammertoes?denies.?Bunions?denies.?Back Pain?denies.?Muscle Cramps/ Resting?denies.?Muscle cramps / walking?denies.?Generalized aches and pains?denies.?Weakness?denies.?Integ.:?[place]?denies.?Scars?denies.?Corns/calluses?denies.?Ingrown nails?denies.?Painful nails?denies.?Open Sores?admits.?Rashes?denies.?Neurologic:?Difficulty sleeping?denies.?Brain disorder?denies.?Numbness?denies.?Balance trouble?denies.?Confusion?denies.?Fainting/blackouts?denies.?Tingling?denies.?Tr emors?denies.? * Medical History:? * Surgical History:?Heart valv e replacement 03/2015stenoisis discs in neck 2016 * Hospitalization/Major Diagno stic Procedure:?Denies Past Hospitalization * Family History:?Mother: dece ased, diagnosed with Family history of arthritis, Other malignant neoplasm of unspecified site.?Father: , poor circulation, diagnosed with Unspecified heart disease, Family history of arthritis.? * Social History:?Tobacco Use:?Tobacco use other than smoking?Are you an other tobacco user??No ?Tobacco Control (Standard)?Tobacco use:?Nonsmoker ?Additional Findings: Tobacco non-user?Current nonsmoker ???Drugs/Alcohol:?Drugs?Have you used drugs other than those for medical reasons in the past 12 months??No ???Miscellaneous:?Caffeine: yes, frequency:. ?Children: yes. ?Exercise: yes, walking. ?Marital status: single. 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 ???Drug/Alcohol:?AUDIT-C (Standard)?Did you have a drink containing alcohol in the past year??Yes ?How often did you have a drink containing alcohol in the past year??Daily or almost daily (4 points) ?How many drinks did you have on a typical day when you were drinking in the past year??Declined to specify (0 point) ?How often did you have six or more drinks on one occasion in the past year??Declined to specify (0 point) ?Points?4 ?Interpretation?Positive * Medications:?TakingDocusate Sodium 100 MG Capsule 1 capsule as needed Orally Once a day Vitamin B1 100 MG Tablet 1 tablet Orally Once a day Tamsulosin HCl 0.4 MG Capsule 1 capsule Orally Once a day Spironolactone 25 MG Tablet 1 tablet Orally Senna 8.6 MG Tablet 2 tablets at bedtime as needed Orally Once a day Loratadine 10 MG Tablet 1 tablet Orally Once a day Gabapentin 800 MG Tablet 1 tablet Orally Once a day Finasteride Fiber Laxative amLODIPine Besylate predniSONE 1 MG Tablet 2 tablets with food or milk Orally Once a day Jardiance 10 MG Tablet 1 tablet Orally Once a day oxyCODONE HCl Torsemide 20 MG Tablet 1 tablet Orally Once a day Primidone 50 MG Tablet 1 tablet Orally Once a day Multivitamin Omeprazole 20 MG Tablet Delayed Release Orally QUEtiapine Fumarate 25 MG Tablet Orally Once a day Rosuvastatin Calcium 20 MG Tablet Orally Taking Docusate Sodium 100 MG Capsule 1 capsule as needed Orally Once a day Taking Vitamin B1 100 MG Tablet 1 tablet Orally Once a day Taking Tamsulosin HCl 0.4 MG Capsule 1 capsule Orally Once a day Taking Spironolactone 25 MG Tablet 1 tablet Orally Taking Senna 8.6 MG Tablet 2 tablets at bedtime as needed Orally Once a day Taking Loratadine 10 MG Tablet 1 tablet Orally Once a day Taking Gabapentin 800 MG Tablet 1 tablet Orally Once a day Taking Finasteride Taking Fiber Laxative Taking amLODIPine Besylate Taking predniSONE 1 MG Tablet 2 tablets with food or milk Orally Once a day Taking Jardiance 10 MG Tablet 1 tablet Orally Once a day Taking oxyCODONE HCl Taking Torsemide 20 MG Tablet 1 tablet Orally Once a day Taking Primidone 50 MG Tablet 1 tablet Orally Once a day Taking Multivitamin Taking Omeprazole 20 MG Tablet Delayed Release Orally Taking QUEtiapine Fumarate 25 MG Tablet Orally Once a day Taking Rosuvastatin Calcium 20 MG Tablet Orally Not-Taking/PRNAmoxicillin-Pot Clavulanate 500-125 MG Tablet TK 1 T PO BID FOR 7 DAYS Oral Amoxicillin-Pot Clavulanate 500-125 MG Tablet TK 1 T PO BID FOR 7 DAYS Oral Amoxicillin-Pot Clavulanate 500-125 MG Tablet TK 1 T PO BID FOR 7 DAYS Oral Amoxicillin-Pot Clavulanate 500-125 MG Tablet TK 1 T PO BID FOR 7 DAYS Oral Amoxicillin-Pot Clavulanate 500-125 MG Tablet TK 1 T PO BID FOR 7 DAYS Oral Not-Taking/PRN Amoxicillin-Pot Clavulanate 500-125 MG Tablet TK 1 T PO BID FOR 7 DAYS Oral Not-Taking/PRN Amoxicillin-Pot Clavulanate 500-125 MG Tablet TK 1 T PO BID FOR 7 DAYS Oral Not-Taking/PRN Amoxicillin-Pot Clavulanate 500-125 MG Tablet TK 1 T PO BID FOR 7 DAYS Oral Not-Taking/PRN Amoxicillin-Pot Clavulanate 500-125 MG Tablet TK 1 T PO BID FOR 7 DAYS Oral Not-Taking/PRN Amoxicillin-Pot Clavulanate 500-125 MG Tablet TK 1 T PO BID FOR 7 DAYS Oral UnknownAmoxicillin 500 MG Capsule Orally , Notes to Pharmacist: only for dentistAspirin 81 MG Tablet Delayed Release Orally Fluticasone Furoate Nasally Twice daily Metoprolol Succinate 25 MG Naproxen 500 MG Tablet Orally Twice a day Thiamine 100 Mg Once a day amLODIPine Besylate 5 MG Tablet Orally Once a day Furosemide Loratadine Augmentin 500-125 MG Tablet 1 tablet Orally Twice a day Augmentin 500-125 MG Tablet 1 tablet Orally Twice a day Cephalexin 500 MG Tablet 1 tablet Orally Twice a day Lactobacillus Acid-Pectin 200 MG Medication List reviewed and reconciled with the patientUnknown Amoxicillin 500 MG Capsule Orally , Notes to Pharmacist: only for dentistUnknown Aspirin 81 MG Tablet Delayed Release Orally Unknown Fluticasone Furoate Nasally Twice daily Unknown Metoprolol Succinate 25 MG Unknown Naproxen 500 MG Tablet Orally Twice a day Unknown Thiamine 100 Mg Once a day Unknown amLODIPine Besylate 5 MG Tablet Orally Once a day Unknown Furosemide Unknown Loratadine Unknown Augmentin 500-125 MG Tablet 1 tablet Orally Twice a day Unknown Augmentin 500-125 MG Tablet 1 tablet Orally Twice a day Unknown Cephalexin 500 MG Tablet 1 tablet Orally Twice a day Unknown Lactobacillus Acid-Pectin 200 MG Medication List reviewed and reconciled with the patient * Allergies:?Diltiazem HClNIFE dipine Objective: * Vitals:?Ht:5 ft 8 in, Wt:160 , BMI:24.33, Shoe size:9.5, BP:130/70mm Hg, Ht-cm: 172.72 cm, Wt-k.58 kg. * Examination: ???General Examination: ?GENERAL APPEARANCE:?Reveals a pleasant, alert, well nourished, well- developed, well hydrated individual, who demonstrates proper attention to hygiene/body habitus, and is in no acute distress, Pt serves as own historian for office visit today.?ORIENTED:?person, place, and time.?FOOT EXAM:?Lower Extremity Neurological Exam performed:?Yes ?Visual exam of foot performed:?Yes ?Date?12/23/2024 ?Sensory testing performed:?sensations normal ?Sensory and motor testing performed:?strength normal ?Pedal pulse taking performed:?1+?Orthopedic: ?MUSCLE STRENGTH:?5/5 all groups in a symmetrical fashion, B/L.?FOOTWEAR EVALUATION:? shoe gear properties exacerbate patients foot/toe deformity.?Dermatologic: ?SKIN FINDINGS:? Skin shows sign(s) of, localized cellulitis without lymphangitis extending proximally to the level of the IPJ,T7.?ULCER:? LOCATION distal T7, SIZE, 6 mm X 5mm X 2mm, BASE, granular, RIM, hyperkeratotic, UNDERMINING, absent, TRACKING, Full thickness breakdown of skin, DRAINAGE, serosanguineous, mild, NECROTIC TISSUE, loosely-adherent, yellow slough, MALODOR, absent, CALOR, absent, ERYTHEMA, absent, PAIN ON PALPATION, present,LOCATION,Distal,T2,?SIZE, x10x mm X x8mm X 2mm, BASE, granular, RIM, hyperkeratotic, UNDERMINING, absent, TRACKING, Full thickness breakdown of skin, DRAINAGE, serosanguineous, mild, NECROTIC TISSUE, loosely-adherent, yellow slough, MALODOR, absent, CALOR, absent, ERYTHEMA, absent, PAIN ON PALPATION, present.?Vascular: ?DP PULSES (B):?08/30, B/L.?PT PULSES (B):?08/30, B/L.?CAPILLARY FILL TIME:?immediate, all digits, B/L.?TROPHIC CONDITION-TEXTURE/ELASTICITY/TURGOR/HAIR GROWTH (B):?normal, B/L.?TEMPERTURE GRADIENT (C):?normal, warm to cool, proximal to distal, B/L, B/L.?PIGMENTATION:?normal, B/L.?EDEMA (C):?09/30, non-pitting, B/L.?Neurological: ?SENSORY:?Neurological exam reveals intact sensorium, pain sensation normal, vibration sensation intact, pinprick sensation is normal in the lower extremities, Pt denies, anesthesia, burning, paresthesia, tingling, B/L.?TINEL'S COMPRESSION:?Negative tarsal tunnel, oliver pedis, and medial calcaneal nerves.?X-Rays - IMAGING REPORT: ?Clinical Indication(s):? Evaluate Biomechanical Deformity.?Views:?3 views of Foot, AP, LO, MO , B/L??Taken by trained?Podiatric Setter Up (?kl ).?Findings:?normal bone and soft tissue density consistent for patients age and sex.?Digits:?show asymmetrical joint space narrowing at the PIPJ consistent with clinical finding of hammertoe deformity, show enlarged/hypertrophied phalangeal head(s) consistent for clinical finding of hammertoe deformity.?Fracture:?Negative fractures identified.?Signs of Osteomyelitis?Absent.? Assessment: * Assessment: 1.?Pain in right toe(s) - M7 9.674???2.?Cellulitis of toe of right foot - L03.031 (Primary)???Specify :Acute problem, Complicated w/ Multiple Tx Options(4),Dx New problem, Prognosis Uncertain (4),Rx Management (4)???3.?Other hammer toe(s) (acquired), right foot - M20.41???Specify :Chronic problem, Worse (4)???4.?Arthritis of joint of lesser toe, right - M19.071???5.?Pain in left toe(s) - M79.675???6.?Other hammer toe(s) (acquired), left foot - M20.42???Specify :Chronic problem, Worse (4)???7.?Arthritis of joint of lesser toe, left - M19.072???8.?Subluxation of metatarsophalangeal joint of toe, initial encounter - S93.149A???9. Skin ulcer of toe of left foot, limited to breakdown of skin - L97.521???Notes :Response to treatment Nonapplicable Nonapplicable???10.?Skin ulcer of toe of right foot, limited to breakdown of skin - L97.511???Notes :Response to treatment Nonapplicable???11.?Cellulitis of toe of left foot - L03.032???Specify :Acute problem, Complicated w/ Multiple Tx Options(4),Dx New problem, Prognosis Uncertain (4),Rx Management (4)??? Plan: * Treatment: 2.?Skin ulcer of toe of left foot, limited to breakdown of skin? Start Silvadene Cream, 1 %, 1 application, Externally, Once a day, 30 days, 25 Gram, Refills 1.?Procedure: 36942- Debride <25 sq cm Notes: Patient Educated with: WOUND CARE INSTRUCTIONS.pdf (WOUND CARE INSTRUCTIONS.pdf)?? 3.?Skin ulcer of toe of righ t foot, limited to breakdown of skin? Notes: Patient Educated with: WOUND CARE INSTRUCTIONS.pdf (WOUND CARE INSTRUCTIONS.pdf)?? * Procedures:?Debride skin< 25 sq cm:?Open wound?Physician of record performed open wound selective debridement of first 25 sq cm or less, of devitilized necrotic/nonviable soft tissue, fibrin, and exudate extending from the epidermis through the dermis, utilizing sharp dissection with sterile 15 blade, and/or tissue nippers. Sterile antibiotic dressing applied, ANESTHESIA- was accomplished TOPICALLY with Lidocaine Hydrochloride Jelly 2 percent. Hemostasis was achieved through direct pressure. Post debridement measurements: T7=5 mm x 5mm x 2mm. T2 8mmX 4mm X2mm Character of the wound post debridement is stable (10356).? * Procedure Codes:?33402 X-RAY EXAM OF RIGHT FOOT 3V, Modifiers: 26 , [id number] ACTIVE WOUND CARE/20 CM OR <, Modifiers: XS 30017 X-RAY EXAM OF LEFT FOOT 3V, Modifiers: 26 , LT * Preventive Medicine:? ??Counseling:?Discussion:?-04: Office or other outpatient visit for the evaluation and management of a new patient, which required a medically appropriate history and/or examination and MODERATE level of DECISION MAKING for: 1 OR MORE CHRONIC PROBLEM(S) THATS WORSENING, 2 STABLE CHRONIC PROBLEMS, A NEWLY DIAGNOSED PROBLEM WITH UNCERTAIN PROGNOSIS, AN ACUTE COMPLICATED INJURY WITH MULTIPLE TREATMENT OPTIONS, OR AN ACUTE PROBLEM WITH ACCOMPANYING SYSTEMIC SYMPTOMS, THAT POSE(S) A MODERATE RISK OF MORBIDITY. THIS CONDITION MAY ALSO INCLUDE RX DRUG MANAGEMENT, OR A DECISON FOR MINOR SURGERY. The visit on the day of the encounter encompassed interpreting the data and educating the patient as to the nature of their condition, treatment options available according to their individual PMH, meds, allergies, and overall health/living conditions, as well as any potential risks or complications that may occur from a failure to adhere to, and participate in, the recommended course of therapy. The discussion included a complete verbal, and/or written explanation of the examination results, any x-rays taken, the proposed diagnosis, and outline of the treatment plan. A schedule for future care needs was also explained. The patient verbalized an understanding of the instructions at this time and agreed to be an active participant in their treatment. If the patient should think of any questions or concerns after the visit, I have encouraged the patient to call the office.?Cellulitis/Lymphangitis?The patient was counseled on the diagnosis, etiology, treatment options, and importance for adherence to recommendations regarding the treatment for Cellulitis. Abx were Rxed to address the cellulitis. The advantages and disadvantages of an antibiotic medication, along with its side effects, were discussed with the patient to their comprehended satisfaction. Patient questions re: use, dosage, and possible pharmacutical interactions were reviewed and the answers clearly understood. If the condition should worsen while taking the antibiotics as directed, it was recommeded that the patient call the office immediately or seek emergency medical care. The patient verbally confirmed a full understanding of the above information, Rxed Abx, Discussed with pt that after nail border removed cellulitis resolves without need for abx. Pt advised to cont to monitor toe for increase in redness, pain or drainage and to call the office if any of these symptoms arise.?Digital Surgery:?Digital surgery was discussed with the patient, including the risks of surgery(below), vs not having surgery (persistent pain, deformity, risk for skin ulceration/infection, loss of toe), the potential surg complications, the anesthesia, and the usual post-op course. No guarentees were given. We discussed the potential procedure complications including, but not limited to: pain, swelling, bleeding, scarring, numbness, infection, delayed/non healing, floppy/unstable/shorthened toe, recurrence, failure of the procedure, overcorrection leading to plantarflexed/downward positioned toe, recurrence, need for further surgery, as well as the possibility for loss of the toe itself. We discussed the use of local anesthesia, and the usual post-op course for healing. No guarentees were given. The patient verbally indicated a full understanding of the above conversation, and any other of their questions were answered to their satisfaction. Alternatives to the procedure were also discussed, including conservative care. I also discussed the usual post-operative course and gave no guarantees regarding outcome, I discussed surgery for a hammertoe by digital arthroplasty, The patient will consider surgical treatment.?Digital Treatment:?HT- I explained to the patient the possible etiologies of Hammertoes, including genetics/foot type/shoegear/activity level/exercise routine and the risks/benefits of all the different treatment options for their pain including: No treatment at all, Rest, Ice, New/supportive/wider/deeper Shoe gear, Digital Padding/Strapping/Taping/Bracing/Gel protective sleeves, Foot/Ankle AFO Bracing, Stretching exercises, Deep Tissue Massage, Arch support/shoe inserts with splay metatarsal padding, and Custom orthoses. I insisted that any digital devices be removed daily and not worn overnight for safety. The patient is to carefully examine the toes daily for any skin irritation while using any splinting or padding device. The advantages and disadvantages of each option were discussed and the patients questions re: shoe gear, padding, custom vs prefabricated inserts, activity level, and consistency in home treatment regimens for optimal success were answered to their verbally confirmed satisfaction, Recomm, rest, ice, proper shoegear, padding, orthotics, anti-inflammatories or tylenol as tolerated, topical analgesics, cortisone injections.?Ulcer:?A detailed plan of care was reviewed with the patient. We emphasized the fact that the patient takes on an active participating role in the treatment process and emphasized to them that they are an included, valued, and important member of the wound healing team in order to reach an expedient successful outcome. The patient agreed to follow their medically recommended diet while increasing their protein intake if safely able to do so, maintain proper bodily hydration, abide by weight-bearing restrictions at all times, quit all current smoking habits if any, and diligently follow any/all dressing change instructions. It was clearly made known to the patient that if they fail to do their part, they will likely extend their course of treatment as well as possibly increase their risk of adverse events including amputation. The patient was instructed on importance of proper wound care consisting of pressure reduction, and proper maintenance of a moist wound environment. The patient is to cleanse the wound with warm soapy water/peroxide/saline, or betadine BID based on product availability. The patient is to apply ( Rx SILVADENE CREAM, ____) Antibiotic to the wound and cover with a DSD as directed. The patient was instructed to change dressings according to orders, or PRN saturation, leaks. The patient was instructed to monitor and report any signs or symptoms of infection or any untoward reactions. Precautions Taken: Offloading/Pressure reduction via rest/ limited activity to essential to daily life only, cane/ crutches/ walker/ knee scooter/ wheelchair, shoe modification, accommodative padding, sharp debridement, and take/apply medication as directed. THE SHORT-TERM GOALS of wound care include, prevent hospitalization, debridement to remove devitalized tissue, minimize risk for soft tissue or bone infection, initiate and promote the wound healing process, and prevent further complication such as loss of limb or life were discussed/reviewed. THE LONG-TERM GOALS of wound care include, complete wound closure if possible, facilitate patient comfort, prevent recurrence, and return the patient to their pre-ulcerative state of activity and lifestyle if possible, Debridement frequency as indicated, Every 3-4 weeks until healed.?X-rays:?Discussed and reviewed the X-rays with the patient. We discussed how the findings relate to the patients symptoms/complaints. Answered any and all questions..? * Follow Up:?2 Weeks * Images: * Sign off status: Completed true * Provider:?Dory Albert DPM Date:?2024 Generated for Ruby meeks/Orion/Raji on:?12/29/2024 05:54 PM EDT History and Physical Notes * HPI (History of Present Illness) Category Sub-Category Detail Notes Category Not es Toe pain Nature: tenderness Location: B/L feet Duration: , several weeks Onset/Cause: gradual Course: worse Aggravated by: shoes, any pressure Treatments: rest/alter normal da wilmer activity, change in shoes Skin problems Nature: redness , swelling , tender Location: , B/L 3rd toes Duration: , several months Course: worse Treatments: oral antibiotics Examination Category Sub-Category Detail Notes Category Not es Neurological SENSORY: Neurological exa m reveals intact sensorium, pain sensation normal, vibration sensation intact, pinprick sensation is normal in the lower extremities, Pt denies, anesthesia, burning, paresthesia, tingling, B/L TINEL'S COMPRESSION: Negative tarsal kelli neli, oliver pedis, and medial calcaneal nerves Dermatologic SKIN FINDINGS: Skin shows sign( s) of, localized cellulitis without lymphangitis extending proximally to the level of the IPJ,T7 ULCER: LOCATION distal T7, SIZE, 6 mm X 5mm X 2mm, BASE, granular, RIM, hyperkeratotic, UNDERMINING, absent, TRACKING, Full thickness breakdown of skin, DRAINAGE, serosanguineous, mild, NECROTIC TISSUE, loosely- adherent, yellow slough, MALODOR, absent, CALOR, absent, ERYTHEMA, absent, PAIN ON PALPATION, present,LOCATION,Distal,T2, SIZE, x10x mm X x8mm X 2mm, BASE, granular, RIM, hyperkeratotic, UNDERMINING, absent, TRACKING, Full thickness breakdown of skin, DRAINAGE, serosanguineous, mild, NECROTIC TISSUE, loosely-adherent, yellow slough, MALODOR, absent, CALOR, absent, ERYTHEMA, absent, PAIN ON PALPATION, present Orthopedic FOOTWEAR EVALUATION: shoe gear p roperties exacerbate patients foot/toe deformity MUSCLE STRENGTH: 5/5 all groups in a symmetrical fashion, B/L General Examination GENERAL APPEARANCE: Reveals a pleasant, alert, well nourished, well-developed, well hydrated individual, who demonstrates proper attention to hygiene/body habitus, and is in no acute distress, Pt serves as own historian for office visit today FOOT EXAM: Lower Extremity Neurological Exa m performed:: Yes Visual exam of foot performed:: Yes Date: 12/23/2024 Sensory testing performed:: sensations n ormal Sensory and motor testing performed:: [facility] normal Pedal pulse taking performed:: 1+ ORIENTED: person, place, and t [facility] DP PULSES (B): 4, B/L PT PULSES (B): 4, B/L CAPILLARY FILL TIME: immediate, all digi ts, B/L TEMPERTURE GRADIENT (C): normal, warm to cool, proximal to distal, B/L, B/L TROPHIC CONDITION-TEXTURE/ELASTICITY/TURGOR/HAIR GROWTH (B): normal, B/L EDEMA (C): 2/4, non-pitting, B/ L PIGMENTATION: normal, B/L X-Rays - IMAGING REPORT Findings: normal b one and soft tissue density consistent for patients age and sex Fracture: Negative fractures i dentified Signs of Osteomyelitis Absent Digits: show asymmetrical mandie int space narrowing at the PIPJ consistent with clinical finding of hammertoe deformity, show enlarged/hypertrophied phalangeal head(s) consistent for clinical finding of hammertoe deformity Views: 3 views of Foot, AP, LO, MO , B/L Taken by trained Podiatric Setter Up ( kl ) Clinical Indication(s): Evaluate Biomech anical Deformity
--- OUTSIDE RECORDS SUMMARY | 2024-12-29 17:54 | XMS_ITS | Encounter Summary ---
Author Organization [employer] [facility] Address [address] [place] [address] Care Team Providers Care Registered Safety Engineer Name Role Phone Unavailable Primary Care Provider Unavailabl e Encounter Details Date Type Department Care Team (Latest Contact Info) Description 06/23/2022 Abstract [facility] CONVERSIONS Dental, Provider, DDS Social History Tobacco [...] Description 12/31/2024 9:00 AM EDT Office Visit [facility] ADULT [facility] [address] [place] [address] Leandra Berrios 01/06/2025 10:00 AM EDT Office Visit [facility] ADULT [facility] [address] [place] [address] Reji Salazar DDS [address] [place] [address] documented as of this encounter Visit Diagnoses Not on filedocumented in this encounter
--- OUTSIDE RECORDS SUMMARY | 2024-12-29 17:54 | XMS_ITS | Encounter Summary ---
Author Organization [employer] [facility] Address [address] [place] [address] Care Team Providers Care Regional Construction Manager Name Role Phone Unavailable Primary Care Provider Unavailabl e Encounter Details Date Type Department Care Team (Latest Contact Info) Description 07/20/2021 Abstract [facility] CONVERSIONS Dental, Provider, DDS Social History Tobacco [...] Description 12/31/2024 9:00 AM EDT Office Visit [facility] ADULT DENTAL [address] [place] [address] Leandra Berrios 01/06/2025 10:00 AM EDT Office Visit [facility] ADULT DENTAL [address] [place] [address] Reji Salazar DDS [address] [place] [address] documented as of this encounter Visit Diagnoses Not on filedocumented in this encounter
--- OUTSIDE RECORDS SUMMARY | 2024-12-29 17:55 | XMS_ITS | Encounter Summary ---
Author Organization [employer] Address [address] [place] [address] Care Team Providers Care Supplier Specialist Name Role Phone Unavailable Primary Care Provider Unavailabl e Reason for Visit * Reason Onset Date Comments Dr. Martin isabel 11/05/2024 Encounter Details Date Type Department Care Team ([facility] st Contact Info) Description 11/05/[address] [facility] ADULT DENTAL [address] [place] [address] Reji Salazar DDS [address] [place] [address] Dr. Martin isabel Social History Tobacco Use Types Packs/Day Years [...] * Telephone Encounter - Nitza Milner - 11/05/2024 3:55 PM EDT Message for Dr. Salazar Patient has an appt on 11/19 for cleaning. He reports a permanent crown fell off and would like it recemented. No room on schedule prior to cleaning date. Reached out to net front end developer. Advised to reach out to provider for further instructions on scheduling patient. desk assistant may call patient on provider determination DR documented in this encounter Plan of Treatment Upcoming Encounters Date Type Department Care Team (Late st Contact Info) Description 12/31/2024 9:00 AM EDT Office Visit [facility] ADULT [facility] [address] [place] [address] Leandra Berrios 01/06/2025 10:00 AM EDT Office Visit [facility] ADULT [facility]ENT[facility] [address] [place] [address] Reji Salazar DDS [address] [place] [address] documented as of this encounter Visit Diagnoses Not on filedocumented in this encounter
--- OUTSIDE RECORDS SUMMARY | 2024-12-29 17:55 | XMS_ITS | Patient Health Record ---
Author Organization [facility] [place] Address [address] [place] [address] Care Team Providers Care Hop Trainer Name Role Phone Onel Haile MD Primary Care Provider Buster luis Dory Albert Unavailable [phone] Allergies Allergen (clinical drug ingredient) Drug/Non Drug Allergy documented on EMR Reaction Allergy Type Onset Date Status diltiazem Diltiazem HCl Unknown Drug Allergy Act aldair nifedipine NIFEdipine Unknown Drug Allergy Activ e Reason For Referral No Information Medications Medication SIG (Take, Route, Frequency, Duration) Notes Start Date End Date Status Jardiance 10 MG 1 tablet Orally Once a day Active Augmentin 500-125 MG 1 tablet Orally Twice a day for 10 day(s) 01/15/2019 Unknown oxyCODONE HCl Active Augmentin 500-125 MG 1 tablet Orally Twice a day for 7 days 11/26/2018 Unknown Torsemide 20 MG 1 tablet Orally Once a day Active Primidone 50 MG 1 tablet Orally Once a day Active Aspirin 81 MG Orally Unknow n Fluticasone Furoate Nasally Twice daily Unknown Loratadine 10 MG 1 tablet Orally Once a day Active Metoprolol Succinate 25 MG Unknown Gabapentin 800 MG 1 tablet Orally Once a day Active Naproxen 500 MG Orally Twice a day Unknown Finasteride Active Thiamine 100 Mg Once a day Unk nown Fiber Laxative Activ e amLODIPine Besylate 5 MG Orally Once a day Unknown amLODIPine Besylate Active Furosemide Unknown predniSONE 1 MG 2 tablets with food or milk Orally Once a day Active Loratadine Unknown Docusate Sodium 100 MG 1 capsule as needed Orally Once a day Active Amoxicillin-Pot Clavulanate 500-125 MG TK 1 T PO BID FOR 7 DAYS Oral for 7 Days Not-Taking Vitamin B1 100 MG 1 tablet Orally Once a day Active Amoxicillin-Pot Clavulanate 500-125 MG TK 1 T PO BID FOR 7 DAYS Oral for 7 Days Not-Taking Tamsulosin HCl 0.4 MG 1 capsule Orally Once a day Active Amoxicillin 500 MG Orally only for dentist Unknown Spironolactone 25 MG 1 tablet Orally Active Senna 8.6 MG 2 tablets at bedtime as needed Orally Once a day Active Sulfamethoxazole-Trime thoprim 400-80 MG 1 tablet Orally Once a day for 10 day(s) 12/23/2024 Active Lactobacillus Acid-Pectin 200 MG Unknown Multivitamin Active Omeprazole 20 MG Orally Act aldair QUEtiapine Fumarate 25 MG Orally Once a day Active Rosuvastatin Calcium 20 MG Orally Active Amoxicillin-Pot Clavulanate 500-125 MG TK 1 T PO BID FOR 7 DAYS Oral for 7 Days Not-Taking Silvadene 1 % 1 application Externally Once a day for 30 days 12/23/2024 Active Amoxicillin-Pot Clavulanate 500-125 MG TK 1 T PO BID FOR 7 DAYS Oral for 7 Days Not-Taking Amoxicillin-Pot Clavulanate 500-125 MG TK 1 T PO BID FOR 7 DAYS Oral for 7 Days Not-Taking Cephalexin 500 MG 1 tablet Orally Twice a day for 10 day(s) Unknown Social History Tobacco Use: Social History Observation [...] Problem Acquired hammer toe of right foot (28644917597 ) Other hammer toe(s) (acquired), right foot (M20.41) Active confirmed Problem Acquired hammer toe of left foot (64111035868 ) Other hammer toe(s) (acquired), left foot (M20.42) Active confirmed Problem Ulcer of toe of right foot (disorder) (47358280368 720700) Skin ulcer of toe of right foot, limited to breakdown of skin (L97.511) Active confirmed Response to treatment Nonapplicable Problem Ulcer of toe of left foot (disorder) (16768158804 166372) Skin ulcer of toe of left foot, limited to breakdown of skin (L97.521) Active confirmed Response to treatment Nonapplicable Nonapplicable Vital Signs Blood pressure diastolic 70 mm Hg 12/23/2024 Height 5 ft 8 in in 12/23/2024 Blood pressure systolic 130 mm Hg 12/23/2024 Weight 160 lbs 12/23/2024 BMI 24.33 kg/m2 12/23/2024 Procedures Procedure Date Ordered Date Performed Result Body Sit e 31687- Debride <25 sq cm 12/23/2024 N/A Encounters Encounter Location Date Provider Diagnosis [facility] [address] 12/23/2024 Dory Albert Pain in right toe(s) M79.674 ; Cellulitis [...] Cellulitis of toe of left foot L03.032 [facility] [place] [address] [place] [address] 12/24/2024 Dory Albert Assessments Encounter Date Diagnosis (ICD Code) Assessment [...] foot (ICD-10 - L03.032) Plan Of Treatment Pending Test Test Name Order Date 29793- Debride <25 sq cm 12/23/2024 20556-VGAALSB SKIN/TISSUE 05/15/2017 66130 I&D ABSCESS- SIMPLE,SINGLE 018 Next Appt Details Provider Name:Dory A Roosevelt , 01/05/2025 10:15:00 AM, [address] [place] [address], [phone], Insurance Providers Payer Name Payer Address Payer Phone Subscriber Number Group Number Insured Name Patient Relationship to Insured Coverage Start Date Coverage End Date Medicare National [employer] [address] [place] [address] [id number] Juwan Yobani Self - patient is the insured 9 Medical (General) History Medical History History ICD Code Back,Hip,and Knee pain Heart disease Raynauds syndrome Measles Mumps Chicken pox Replacement Heart Valves Transfusions Arthritis High Blood Pressure Sarcoidosis Lung disease Surgical History Surgery Date(Month/Year) 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
--- OUTSIDE RECORDS SUMMARY | 2024-12-29 17:55 | XMS_ITS | Clinical Summary ---
Author Organization [employer] Address [address] [place] [address] Care Team Providers Care Training Intern Name Role Phone Unavailable Primary Care Provider Unavailabl e Allergies Active Allergy Reactions Criticality Noted Date Comments Diltiazem Unknown 01/21/2015 Nifedipine Swelling 01/21/2015 Medications amLODIPine (Norvasc) 5 MG tablet 3 Active Aspirin 81 MG capsule aspirin Active docusate sodium (Colace) 100 MG capsule DOK 100 mg capsule TK 1 C PO TID PRN FOR CONSTIPATION 2 Active finasteride (Proscar) 5 MG tablet 3 Active fluticasone (Flonase) 50 MCG/ACT nasal spray 3 Active gabapentin (Neurontin) 300 MG capsule 2 Active hydrocortisone 2.5 % ointment Apply topically. 1 Active ketoconazole (NIZOral) 2 % shampoo 2 Active loratadine (Claritin) 10 MG tablet Take 1 tablet by mouth in the morning. 2 Active metoprolol tartrate (Lopressor) 25 MG tablet 3 Active multivitamin (Theragran) tablet Active omeprazole (PriLOSEC) [address] capsule 3 Active polyethylene glycol, PEG, 3350 (Glycolax) 17 GM/SCOOP powder polyethylene glycol 3350 17 gram/dose oral powder 1 Active predniSONE (Deltasone) 10 MG tablet 3 Active Xarelto 20 MG tablet 2 Active rosuvastatin (Crestor) 20 MG tablet 3 Active sulfamethoxazol e-trimethoprim (Bactrim) 400-80 MG tablet 3 Active tamsulosin (Flomax) 0.4 MG 24 hr capsule 3 Active thiamine (Vitamin B-1) 100 MG tablet Active torsemide (Demadex) 20 MG tablet 3 Active amLODIPine (Norvasc) 5 MG tablet Take 1 tablet by mouth in the morning. Active atenolol (Tenormin) 25 MG tablet Take 1 tablet by mouth in the morning. Active divalproex (Depakote ER) 250 MG 24 hr tablet Take by mouth. Activ e folic acid (Folvite) 1 MG tablet Take 1 tablet by mouth in the morning. Active furosemide (Lasix) 20 MG tablet Take 1 tablet by mouth in the morning. Active hydroCHLOROthia zide (HYDRODiuril) 12.5 MG tablet Take 1 tablet by mouth in the morning. Active ibuprofen (Advil) 200 MG tablet Take by mouth. Activ e ibuprofen 800 MG tablet Take 1 tablet by mouth every 8 (eight) hours. 8 Active irbesartan (Avapro) 75 MG tablet Take 1 tablet by mouth in the morning. Active Lactobacillus (Acidophilus) capsule Active QUEtiapine (SEROquel) 100 MG tablet Take by mouth. Activ e Sod Fluoride-Potass ium Nitrate (PreviDent 5000 Enamel Protect) 1.1-5 % gel Apply a pea sized amount on the brush; brush thoroughly twice daily. 2 Active amoxicillin (Amoxil) 500 MG capsule Take four capsules one hour before the dental appointment. 12 capsule 4 Active aspirin (ASPIR) 81 MG EC tablet Acti ve Folic Acid 0.8 MG capsule Active oxyCODONE (Roxicodone) 5 MG immediate release tablet 4 Active erythromycin (Romycin) 5 MG/GM ophthalmic ointment 4 Active Fiber-Lax 625 MG tablet 4 Active albuterol (2.5 MG/3ML) 0.083% nebulizer solution 4 Active sennosides (Senokot) 4.3 mg tablet (HALF TABLET) Take 8.6 mg by mouth. 4 Active Loratadine 10 MG capsule Active Sodium Fluoride (PreviDent 5000 Booster Plus) 1.1 % paste Apply a smear of paste on the brush; brush thoroughly twice daily. Spit,do not rinse. 112 g 2 Active Encounters Date Type Department Care Team Description 11/05/2024 Telephone [facility] ADULT D[facility] [address] [place] [address] [place] recement crown 10/07/2024 1:30 PM EST Office Visit [facility] [address] [place] [address] Reji Salazar DDS from Last 3 Months Social History Tobacco Use Types Packs/Day Years Used Date Smoking Tobacco: Never Passive Smoke Exposure: Never Smokeless Tobacco: Never Tobacco Cessation:Counseling Given: Not Answered Alcohol Use Standard Drinks/Week Comments Yes 12 (1 standard drink = 0.6 oz pu re alcohol) Sex and Gender Information Value Date Recorded Sex Assigned at Male 06/26/2022 10:24 AM EDT Legal Sex Male 10:24 AM EDT Gender Identity Male 06/26/2022 10:24 AM EDT Sexual Orientation Straight 06/26/2022 10 :24 AM EDT Last Filed Vital Signs Vital Sign Reading Time Taken Comments Blood Pressure 138/74 10/07/2024 1:43 PM EST Pulse 65 02/22/2024 10:10 AM EDT Temperature - - Respiratory Rate - - Oxygen Saturation - - Inhaled Oxygen Concentration - - Weight - - Height - - Body Mass Index - - Plan of Treatment Upcoming Encounters Date Type Department Care Team (Late st Contact Info) Description 12/31/2024 9:00 AM EDT Office Visit [facility]ULT [facility] [address] [place] [address] Leandra Berrios 01/06/2025 10:00 AM EDT Office Visit [facility] [address] [place] [address] Reji Salazar DDS [address] [place] [address] Health Maintenance Due Date Last Done Comments CT Colonography 1953 Colonoscopy 1953 Colorectal Cancer Screening 1953 Dental X-Ray: Full Mouth 1953 Depression Screening 1953 FIT DNA/Cologuard 1953 FIT 1953 FOBT 1953 Lipid Panel 1953 SDOH Screening 1953 Sigmoidoscopy 1953 Alcohol/Substance Use Screening 1965 Hepatitis C Screening 11/25/1971 Hepatitis A Vaccines (1 of 2 - Risk 2-dose series) 1972 Hepatitis B Vaccines (1 of 3 - Risk 3-dose series) 2013 RSV Patients and Patients Aged 60 years or older (1 - Risk 60-74 years 1-dose series) 2013 Zoster Vaccines (2 of 3) 01/30/2017 12/05/2016 DTaP/Tdap/Td Vaccines (2 - Td or Tdap) 11/14/2022 11/14/2012, 08/29/2002 Dental Oral Exam 08/24/2024 02/22/2024, 08/23/2023 Dental Prophylaxis 08/24/2024 02/22/2024, 1 10/24/2022, 02/09/2023 Dental X-Ray: Bitewings 08/24/2024 08/23/2023 Pneumococcal Vaccine: 50+ Years (3 of 3 - PCV20 or PCV21) 01/27/2025 01/28/2020, 05/10/2015, 07/14/2008 Tobacco Screening 05/27/2025 05/27/2024 Influenza Vaccine Completed 06/27/2024, , 05/17/2023, Additional history exists COVID-19 Vaccine Completed 07/08/2024, 09/2022, 01/11/2023, Additional history exists HIB Vaccines Aged Out No longer eligi ble based on patient's age to complete this topic HPV Vaccines Aged Out No longer eligi ble based on patient's age to complete this topic IPV Vaccines Aged Out No longer eligi ble based on patient's age to complete this topic Meningococcal Vaccine Aged Out No delio corine eligible based on patient's age to complete this topic RSV under 20 months Aged Out No longe r eligible based on patient's age to complete this topic Rotavirus Vaccines Aged Out No longer eligible based on patient's age to complete this topic Procedures Procedure Name Priority Date/Time Associated Diagnosis Comments CASE PRESENTATION, DETAILED AND EXTENSIVE TREATMENT PLANNING Routine 10/07/2024 1:30 PM EST 5 MB RESIN-BASED COMPOSITE - 2 SURF, POSTERIOR Routine 10/07/2024 1:30 PM EST 6 MDFL RESIN-BASED COMPOSITE - 4 OR MORE SURFACES (ANTERIOR) Routine 10/07/2024 1:30 PM EST Full PROPHYLAXIS - ADULT Routine 024 10:00 AM EDT PERIODIC ORAL EVALUATION - ESTABLISHED PATIENT Routine 02/22/2024 10:00 AM EDT BITEWINGS - 4 RADIOGRAPHIC IMAGES Routine 08/23/2023 10:00 AM EST from Last 3 Months or Most Recently Relevant to Health Maintenance Insurance DENTAL - [facility] FULL (MEDICAID)
[2024-12-29] MEDS: Sodium Phosphate,Mono-Dibasic 133 ML ENEMA PR (18:07)
[2024-12-29 18:36] LABS: MANUAL DIFF FLAG NO
--- NOTE | 2024-12-29 18:38 | ED.GENADULT ---
HPI - General Adult General Chief complaint: General Medical Stated complaint: PER EMS CONSTIPATION [id number], ABD PAIN Time Seen by Provider: 12/29/24 16:45 History of Present Illness HPI narrative: Patient is a 69-year-old male presented today with having no good bowel movement for the last 2 weeks. Passing gas. Very small amount of stool. No history of abdominal surgery. No fever no chills. Not on any narcotics. Patient from home. No systemic complaints. No nausea no vomiting. Related Data Home Medications ?Medication ?Instructions ?Recorded ?Confirmed amlodipine 5 mg tablet 5 mg PO DAILY 05/26/23 06/05/23 duloxetine 30 mg capsule,delayed 30 mg PO DAILY 05/26/23 06/05/23 release empagliflozin 10 mg tablet 10 mg PO DAILY 05/26/23 06/05/23 (Jardiance) finasteride 5 mg tablet 5 mg PO DAILY 05/26/23 06/05/23 fluticasone propionate 50 1 spray intranasal DAILY 05/26/23 06/05/23 mcg/actuation nasal spray,suspension gabapentin 600 mg tablet 600 mg PO BID 05/26/23 06/05/23 omeprazole 20 mg capsule,delayed 20 mg PO DAILY 05/26/23 06/05/23 release prednisone 5 mg tablet 10 mg PO DAILY 05/26/23 06/05/23 quetiapine 25 mg tablet 50 mg PO BEDTIME 05/26/23 06/05/23 rosuvastatin 20 mg tablet 20 mg PO BEDTIME 05/26/23 06/05/23 spironolactone 25 mg tablet 25 mg PO DAILY 05/26/23 06/05/23 tamsulosin 0.4 mg capsule 0.4 mg PO DAILY 05/26/23 06/05/23 Probiotic 1 cap PO DAILY 06/05/23 06/05/23 albuterol sulfate 90 mcg/actuation 2 puff inhalation Q4-6H PRN 06/05/23 06/05/23 aerosol inhaler Wheezing ascorbic acid (vitamin C) 500 mg 500 mg PO DAILY 06/05/23 06/05/23 tablet budesonide 160 mcg-glycopyr 9 2 inh inhalation BID 06/05/23 06/05/23 mcg-formot 4.8 mcg/actuation HFA inhaler (Breztri Aerosphere) dextromethorphan-guaifenesin ER 60 1 tab PO Q12H 06/05/23 06/05/23 mg-1,200 mg tab,extend release,12hr (Mucinex DM) multivitamin 1 tab PO DAILY 06/05/23 06/05/23 potassium 99 mg tablet 99 mg PO DAILY 06/05/23 06/05/23 povidone (PF) 0.5 % eye drops 1 drp ophthalmic (eye) BID 06/05/23 06/05/23 (iVizia (PF)) Previous Rx's ?Medication ?Instructions ?Recorded ondansetron 4 mg disintegrating 4 mg PO Q6H PRN nausea and 05/29/23 tablet vomiting #10 tabs azithromycin 500 mg tablet 500 mg PO DAILY 5 days #5 tabs 06/07/23 cefuroxime axetil 500 mg tablet 500 mg PO BID #10 tabs 06/07/23 sennosides 17.2 mg tablet (Senokot 17.2 mg PO BID PRN constipation 12/29/24 Extra Strength) #20 tabs Allergies Allergy/AdvReac Type Severity Reaction Status Date / Time diltiazem AdvReac Intermediate unknown Verified 12/29/24 16:41 nifedipine AdvReac Mild unknown Verified 12/29/24 16:41 Review of Systems Review of Systems: Positive abdominal bloating no good bowel movement Yes all other systems are reviewed and are negative [facility] Past Medical History Attestation statement: The following information was validated with the patient. Medical History Alcohol use disorder Hypertension Atrial fibrillation Sarcoidosis Social History Social History Household Members: None Housing: House Do you presently have visiting nurse or other home services: Yes Alcohol intake: current Alcohol intake frequency: 3 or more drinks per day Alcohol type: beer and hard liquor Patient Tobacco Use Status: Never used Tobacco Smoked in Last 30 Days: No Advance Directives: Yes Advance Directives on File: Yes Advance Directives Date on File: 05/30/23 service: No Physical Exam ED Vital Signs: Vital Signs - 24 hr 12/29/24 16:37 12/29/24 16:42 12/29/24 18:00 Temperature 97.2 F Pulse Rate 75 73 80 Respiratory Rate 18 18 16 Blood Pressure 103/66 111/65 114/73 Pulse Oximetry 98 99 98 Oxygen Delivery Method Room Air Room Air Room Air 12/29/24 20:00 Temperature 98.0 F Pulse Rate 89 Respiratory Rate 18 Blood Pressure 118/76 Pulse Oximetry 98 Oxygen Delivery Method Room Air BMI result Body Mass Index 23.1 Appearance: Alert. Oriented X3. No acute distress. Eyes: Pupils equal, round and reactive to light. ENT: Pharynx normal. Neck: Normal inspection. Neck supple. No lymph nodes noted. No crepitus CVS: Normal heart rate and rhythm. Pulses normal. Normal S1 and S2 Respiratory: No respiratory distress. Breath sounds normal. No Wheezing. No rales Abdomen: Soft and nontender. No rigidity. No distention. good BS x4 Skin: Skin warm and dry. Normal skin color. Normal skin turgor. Rectal exam done with nursing present showed no gross stool in the vault. Extremities: No lower extremity edema. Neurovascular intact to all extremities. No Lacerations. No Rash Neuro: Oriented X 3. No motor deficit. No sensory deficit. Moving all extermities. No slurred speech Medications Administered Discontinued Medications Generic Name Dose Route Start Last Admin Trade Name Freq PRN Reason Stop Dose Admin Sodium Chloride 1,000 mls @ 999 mls/hr 12/29/24 18:30 12/29/24 18:51 Ns IV 12/29/24 19:30 999 mls/hr .Q1H1M NELLY Administration Sodium Biphosphate/Sodium Phosphate 133 ml 12/29/24 17:47 12/29/24 18:07 Sodium Phosphate,Nuckolls-Dibasic 133 Ml Enema DC 12/29/24 17:48 133 ml ONCE ONE Administration Medical Decision Making Medical Decision Making [facility] Narrative: No good bowel movement for the last 2 weeks. A Fleet enema was given. Labs ordered. Will get a CT scan of the abdomen. Patient CT scan showed no gross obstruction there is moderate amount of stool per Radiology. Patient unable to provide a urine. A bladder scan was done. Postvoid patient's bladder scan was over 400 consistent with retention. A Quinn to be placed. Will have patient attempt for bowel movement. Patient's sodium came back at 129 will need close monitoring. Symptomatically he feels okay. We did a Fleet enema and I attempted a manual disimpaction there was not much stool in the vault. 12/29/2024 at 22:00 hours,Dr. Kirk Royal's note: I assumed care of this patient from my colleague, Dr. Richter at 21:00 hours. Patient presented with constipation and was found to have large volume of urine in his bladder and a Quinn catheter was placed. He also had a low sodium of 129 patient's urinalysis was pending at the end of Dr. Richter's shift. Urinalysis interpreted by me as follows: Positive for glucose. Microscopic revealed 0-2 RBCs, 0-5 WBCs, no bacteria-no evidence for urinary tract infection Patient states he does take Dulcolax daily. Patient was given a prescription for extra-strength Senokot 2 pills once a day for 4 days and he can repeat this 1 week later. The patient is hyponatremic. Patient states he is on a diuretic for peripheral edema (spironolactone as listed in his home medications) and he drank 64 oz of water per day. I told the patient that you should cut down his fluid intake to 1 L of fluid per day (35 oz). You will need to follow up with his PCP for repeat laboratory testing Patient will be discharged home with a Quinn catheter in place and was advised to follow up with his urologist 4 days. Patient will also need to follow up with his PCP for close monitoring of his low sodium. Differential Diagnosis Differential Diagnoses: The differential diagnosis associated with the presentation includes Urinary retention, constipation, UTI Admission/Observation Consideration of admission/observation: Escalation of care including admission/observation considered Lab Data MDM Lab Attestation statement: I reviewed the patient's lab results. 12/29/24 18:24 12/29/24 18:24 Labs: Lab Results 12/29/24 12/29/24 Range/Units 18:24 21:09 WBC 7.9 (4.8-10.8) X10*3/uL RBC 4.69 (4.60-5.80) X10*6/uL Hgb 13.7 L (14.0-18.0) g/dl Hct 39.5 L (42.0-52.0) % MCV 84.2 (80.0-98.0) fL MCH 29.2 (27.0-33.0) pg MCHC 34.7 (31.0-36.0) g/dl RDW 14.9 (11.0-16.0) % Plt Count 245 (160-400) X10*3/uL MPV 9.3 L (9.4-12.4) fL Immature Gran % (Auto) 1.1 H (0.0-0.4) % Neut % (Auto) 74.3 H (45-73) % Lymph % (Auto) 10.1 L (20-40) % Nuckolls % (Auto) 13.0 H (2-11) % Eos % (Auto) 1.1 (0-4) % Baso % (Auto) 0.4 (0-2) % Lymph # (Auto) 0.8 L (1.2-4.9) X10*3/uL [place]olls # (Auto) 1.0 (0.1-1.2) X10*3/uL Eos # (Auto) 0.1 (0.0-0.4) X10*3/uL Baso # (Auto) 0.0 (0.0-0.2) X10*3/uL Abs Immat Gran (auto) 0.09 H (0.00-0.03) X10*3/uL Absolute Neuts (auto) 5.9 (2.0-8.3) x10*3/uL Absolute Nucleated RBC 0.000 (0.0-0.012) X10*3/uL Nucleated RBC % (auto) 0.0 (0.0-0.2) /100WBC Sodium 129 L (135-145) mmol/L Potassium 4.7 (3.3-5.1) mmol/L Chloride 91 L (96-108) mmol/L Carbon Dioxide 30 H (22-29) mmol/L Anion Gap 13 (12-20) BUN 13 (9-16) mg/dL Creatinine 0.80 (0.5-1.4) mg/dL Estim Creat Clear Calc 81.9 Estimated GFR > 60 Random Glucose 90 (60-115) mg/dL Calcium 9.4 (8.4-10.2) mg/dL Total Bilirubin 0.5 (0.0-1.0) mg/dL Direct Bilirubin 0.2 (0.0-0.5) mg/dL AST 33 (5-37) U/L ALT 18 (0-40) U/L Alkaline Phosphatase 87 (39-117) U/L Total Protein 8.1 H (6.5-8.0) g/dL Albumin 4.0 (3.5-5.0) g/dL Lipase 44 (8-78) U/L Urine Color Yellow Urine Appearance Clear Urine pH 6.5 (5.0-9.0) Ur Specific [place] 1.015 (1.005-1.025) Urine Protein Negative (Neg-Trace) mg/dL Urine Glucose (UA) >=1000 H (Negative) mg/dL Urine Ketones Negative (Negative) mg/dL Urine Blood Negative (Negative) Urine Nitrite Negative (Negative) Ur Leukocyte Esterase Negative (Negative) Urine RBC 0-2 (0-2) /HPF Urine WBC 0-5 (0-5) /HPF Ur Squamous Epith Cells 0-2 (0-2) /HPF Urine Bacteria None Seen (None Seen) Hyaline Casts 0-2 (0-2) /LPF Independent Interpretation I performed an independent interpretation of an: CT Scan (No gross obstruction) Radiology Impression Discussion of test interpretation with radiology: I have reviewed the radiologist's reading. External Record Review External record reviewed: Inpatient record Chronic Conditions Constipation history of congestive heart failure Social Determinants Patient?s care significantly limited by Social Determinants of Health including: Problems related to primary support group Discharge Plan Discharge Clinical Impression: Constipation, Acute urinary retention, Acute hyponatremia Patient Disposition: Home, Self-Care Instructions: Constipation (DC), Urinary Retention in Men (ED), Hyponatremia (ED), Fluid Restriction (ED) Additional Instructions: Your blood work revealed a low sodium of 129 (normal is 135-145). This low sodium may be caused by your water pill and is also caused by you drinking too much water (64 oz) a day. You should restrict your fluid intake to 1 L (32 oz) of fluid per day. The goal of taking a water pill is pee out more fluid then you drank so that you can get rid of the fluid in your legs Your bladder was full of urine and we had to put a Quinn catheter in. This catheter needs to stay in for 4 days and you need to follow-up your urologist to have this catheter removed and to make sure that you can urinate after the catheters removed. Your CAT scan was consistent with chronic constipation (redundant colon), a distended urinary bladder to 15 cm and fluid in your lungs. Continue taking your stool softener, Colace. Take Metamucil 1 tsp in 8 oz of water daily. Take extra-strength Senokot 2 pills twice a day for 4 days. You can repeat this in 1 week. Senokot is a laxative and should help you move your bowels Follow-up with your doctor in 2 days. Please return to the emergency department if your symptoms get worse or if you develop any symptoms that are concerning to you. Prescriptions: New Senokot Extra Strength 17.2 mg tablet 17.2 mg PO BID PRN (Reason: constipation) Qty: 20 0RF No Action ondansetron 4 mg tablet,disintegrating 4 mg PO Q6H PRN (Reason: nausea and vomiting) Qty: 10 0RF multivitamin Tablet 1 tab PO DAILY potassium 99 mg Tablet 99 mg PO DAILY ascorbic acid (vitamin C) 500 mg Tablet 500 mg PO DAILY dextromethorphan-guaifenesin [Mucinex DM] 60-1,200 mg Tablet Extended Release 12 Hr 1 tab PO Q12H albuterol sulfate 90 mcg/actuation Hfa Aerosol Inhaler 2 puff INHALATION Q4-6H PRN (Reason: Wheezing) Breztri Aerosphere 160-9-4.8 mcg/actuation Hfa Aerosol Inhaler 2 inh INHALATION BID Probiotic 1 cap PO DAILY iVizia (PF) 0.5 % Drops 1 drp OPHTHALMIC (EYE) BID cefuroxime axetil 500 mg tablet 500 mg PO BID Qty: 10 0RF azithromycin 500 mg tablet 500 mg PO DAILY 5 Days Qty: 5 0RF fluticasone propionate 50 mcg/actuation spray,suspension 1 spray intranasal DAILY Jardiance 10 mg tablet 10 mg PO DAILY duloxetine 30 mg capsule,delayed release(DR/EC) 30 mg PO DAILY rosuvastatin 20 mg tablet 20 mg PO BEDTIME finasteride 5 mg tablet 5 mg PO DAILY omeprazole 20 mg capsule,delayed release(DR/EC) 20 mg PO DAILY spironolactone 25 mg tablet 25 mg PO DAILY amlodipine 5 mg tablet 5 mg PO DAILY prednisone 5 mg tablet 10 mg PO DAILY gabapentin 600 mg tablet 600 mg PO BID tamsulosin 0.4 mg capsule 0.4 mg PO DAILY quetiapine 25 mg tablet 50 mg PO BEDTIME Print Language: Romanian
[2024-12-29 18:51] LABS: Alanine Aminotransferase 18 U/L (0-40); Alkaline Phosphatase 87 U/L (39-117); Anion Gap 13 (12-20); Aspartate Amino Transferase 33 U/L (5-37); Bilirubin Direct 0.2 mg/dL (0.0-0.5); Bilirubin Total 0.5 mg/dL (0.0-1.0); Blood Urea Nitrogen 13 mg/dL (9-16); Calcium 9.4 mg/dL (8.4-10.2); Carbon Dioxide 30 mmol/L (22-29); Chloride 91 mmol/L (96-108); Creatinine Clr Calc Pharmacy 81.9; Estimated Glomerular Filt Rate > 60; Glucose Random 90 mg/dL (60-115); Lipase 44 U/L (8-78); Potassium 4.7 mmol/L (3.3-5.1); Sodium 129 mmol/L (135-145); Total Protein 8.1 g/dL (6.5-8.0)
[2024-12-29] MEDS: 0.9 % Sodium Chloride 1,000 ML 999 ML IV (18:51)
[2024-12-29 18:59] LABS: Basophils Percent Auto 0.4 % (0-2); Eosinophils Absolute Auto 0.1 X10*3/uL (0.0-0.4); Eosinophils Percent Auto 1.1 % (0-4); Hematocrit 39.5 % (42.0-52.0); Hemoglobin 13.7 g/dl (14.0-18.0); Imm Gran Abs Auto 0.09 X10*3/uL (0.00-0.03); Imm Gran Pct Auto 1.1 % (0.0-0.4); Lymphocytes Absolute Auto 0.8 X10*3/uL (1.2-4.9); Lymphocytes Percent Auto 10.1 % (20-40); Mean Corpuscular HGB Conc 34.7 g/dl (31.0-36.0); Mean Corpuscular Hemoglobin 29.2 pg (27.0-33.0); Mean Corpuscular Volume 84.2 fL (80.0-98.0); Mean Platelet Volume 9.3 fL (9.4-12.4); Neutrophils Absolute Auto 5.9 x10*3/uL (2.0-8.3); Neutrophils Percent Auto 74.3 % (45-73); Platelet Count 245 X10*3/uL (160-400); Red Blood Count 4.69 X10*6/uL (4.60-5.80); Red Cell Distribution Width 14.9 % (11.0-16.0); White Blood Count 7.9 X10*3/uL (4.8-10.8)
[2024-12-29 21:16] LABS: Appearance Urine Clear; Color Urine Yellow; Glucose Urine UA >=1000 mg/dL (Negative); Leukocyte Esterase Urine Negative (Negative); Nitrite Urine Negative (Negative); PH 6.5 (5.0-9.0); Specific Gravity - Urine 1.015 (1.005-1.025); UMIC TRIGGER UACC YES; Urine Blood Negative (Negative); Urine Ketones Negative (Negative); Urine Protein Negative (Neg-Trace)
[2024-12-29 21:20] LABS: Bacteria Urine None Seen (None Seen); Hyaline Casts Urine 0-2 /LPF (0-2); RBC Urine 0-2 /HPF (0-2); Squamous Epithelial Cell Urine 0-2 /HPF (0-2); WBC Urine 0-5 /HPF (0-5)
== END 2024-12-29 23:59 | disposition home or self-care (01) ==
PROVIDERS: Emergency Medicine Emergency Medical Services; Emergency Provider Emergency Medicine Emergency Medical Services; PCP Family Medicine
DX: K59.00 Constipation, unspecified (principal); R10.2 Pelvic and perineal pain; R33.9 Retention of urine, unspecified; E87.1 Hypo-osmolality and hyponatremia; R11.0 Nausea; Z79.899 Other long term (current) drug therapy
CPT/HCPCS: 36415; 74176; 80048; 80076; 81001; 83690; 85025; 96360; 96361; 99285

== ENCOUNTER → 2024-12-29 18:17 | Outpatient (BNV) | payer MEDICARE, MEDICAID, SELFPAY | PROVIDERS: Emergency Provider Emergency Medicine Emergency Medical Services; PCP Family Medicine; Visit Provider Student in an Organized Health Care Education/Training Program | DX: K56.41 Fecal impaction (principal); J90 Pleural effusion, not elsewhere classified; I34.81 Nonrheumatic mitral (valve) annulus calcification; Q43.8 Other specified congenital malformations of intestine | CPT/HCPCS: 74176 ==

== ENCOUNTER 2024-12-31 20:39 | Emergency (ER) | payer MEDICARE, MEDICAID, SELFPAY ==
[2024-12-31 20:48] VITALS: BP 120/71; PULSE 85; RESP 18; TEMP 36.6; O2SAT 98; BMI 24.3
--- NOTE | 2024-12-31 20:48 | ED.MALEGU ---
HPI - Male Genitourinary General Chief complaint: Urogenital-Male Stated complaint: catheter issues Time Seen by Provider: 12/31/24 23:39 Source: patient, RN notes reviewed and old records reviewed Mode of arrival: ambulatory Limitations: no limitations History of Present Illness ED Provider: Magan CARROLL Narrative: 69-year-old male presents for evaluation of bloody urine and leaking around his catheter. he was seen here 2 days ago for constipation and urinary retention. He reports today that he has had multiple large bowel movements since his discharge 2 days ago however today his catheter has been leaking and he has noticed blood around the tip of his penis I have my evaluation the patient reports that the nurse adjusted his leg bag. the patient had attempted to fasten the catheter tube to his leg attachment and he had accidentally clamped the tube Related Data Home Medications ?Medication ?Instructions ?Recorded ?Confirmed amlodipine 5 mg tablet 5 mg PO DAILY 05/26/23 06/05/23 duloxetine 30 mg capsule,delayed 30 mg PO DAILY 05/26/23 06/05/23 release empagliflozin 10 mg tablet 10 mg PO DAILY 05/26/23 06/05/23 (Jardiance) finasteride 5 mg tablet 5 mg PO DAILY 05/26/23 06/05/23 fluticasone propionate 50 1 spray intranasal DAILY 05/26/23 06/05/23 mcg/actuation nasal spray,suspension gabapentin 600 mg tablet 600 mg PO BID 05/26/23 06/05/23 omeprazole 20 mg capsule,delayed 20 mg PO DAILY 05/26/23 06/05/23 release prednisone 5 mg tablet 10 mg PO DAILY 05/26/23 06/05/23 quetiapine 25 mg tablet 50 mg PO BEDTIME 05/26/23 06/05/23 rosuvastatin 20 mg tablet 20 mg PO BEDTIME 05/26/23 06/05/23 spironolactone 25 mg tablet 25 mg PO DAILY 05/26/23 06/05/23 tamsulosin 0.4 mg capsule 0.4 mg PO DAILY 05/26/23 06/05/23 Probiotic 1 cap PO DAILY 06/05/23 06/05/23 albuterol sulfate 90 mcg/actuation 2 puff inhalation Q4-6H PRN 06/05/23 06/05/23 aerosol inhaler Wheezing ascorbic acid (vitamin C) 500 mg 500 mg PO DAILY 06/05/23 06/05/23 tablet budesonide 160 mcg-glycopyr 9 2 inh inhalation BID 06/05/23 06/05/23 mcg-formot 4.8 mcg/actuation HFA inhaler (Breztri Aerosphere) dextromethorphan-guaifenesin ER 60 1 tab PO Q12H 06/05/23 06/05/23 mg-1,200 mg tab,extend release,12hr (Mucinex DM) multivitamin 1 tab PO DAILY 06/05/23 06/05/23 potassium 99 mg tablet 99 mg PO DAILY 06/05/23 06/05/23 povidone (PF) 0.5 % eye drops 1 drp ophthalmic (eye) BID 06/05/23 06/05/23 (iVizia (PF)) Previous Rx's ?Medication ?Instructions ?Recorded ondansetron 4 mg disintegrating 4 mg PO Q6H PRN nausea and 05/29/23 tablet vomiting #10 tabs azithromycin 500 mg tablet 500 mg PO DAILY 5 days #5 tabs 06/07/23 cefuroxime axetil 500 mg tablet 500 mg PO BID #10 tabs 06/07/23 sennosides 17.2 mg tablet (Senokot 17.2 mg PO BID PRN constipation 12/29/24 Extra Strength) #20 tabs Allergies Allergy/AdvReac Type Severity Reaction Status Date / Time diltiazem AdvReac Intermediate unknown Verified 12/31/24 20:52 nifedipine AdvReac Mild unknown Verified 12/31/24 20:52 Review of Systems Gastrointestinal: Gastrointestinal: Reports abdominal pain Genitourinary: Genitourinary: Reports hematuria Musculoskeletal: Musculoskeletal: Denies back pain [facility] Past Medical History Medical History Alcohol use disorder Hypertension Atrial fibrillation Sarcoidosis Social History Social History Household Members: None Housing: House Do you presently have visiting nurse or other home services: Yes Alcohol intake: current Alcohol intake frequency: 3 or more drinks per day Alcohol type: beer and hard liquor Patient Tobacco Use Status: Never used Tobacco Advance Directives: Yes Advance Directives on File: Yes Advance Directives Date on File: 05/30/23 Do you have a plan to hurt others: No Plan service: No Physical Exam Vital Signs: Vital Signs: Last Vital Signs Temp 97.9 F 01/01/25 00:07 Pulse 88 01/01/25 00:07 Resp 19 01/01/25 00:07 BP 118/76 01/01/25 00:07 Pulse Ox 98 01/01/25 00:07 O2 Del Method Room Air 01/01/25 00:07 BMI result Body Mass Index 24.3 Const: General: healthy appearing, comfortable, no acute distress, alert and awake Nutritional Appearance: well nourished Orientation/consciousness: patient oriented x3 HEENT: Head: Yes normocephalic and Yes atraumatic Eyes: Eyelids: Yes eyelids normal Conjunctivae: conjunctivae normal Sclerae: sclerae normal Corneas: corneas normal Pupils: Equal, round and reactive pupils present EOM: EOMs intact bilaterally Neck: Neck: Yes full ROM Resp: Effort & Inspection: normal respiratory effort, able to speak in complete sentences and not labored GI: Inspection: No distended Palpation (GI): Soft to palpation, not firm, nontender, no guarding and not rigid Skin: General skin exam: elasticity normal Neuro: General: patient oriented x3 Cranial nerves: Yes Equal, round and reactive pupils present and Yes Bilaterally intact EOM present Cognition (Neuro): normal cognition Course Course Course Narrative: This is a Rapid Medical Exam performed in triage by Imani Bhat PA-C. Full HPI, ROS and PE to be performed by primary ED provider. 69 yo M w/PMHx HTN, A.fib, ETOH use c/o presenting to the ED c/o leaking catheter since Sunday with gross hematuria in bag since last night but worsening in the past hour. Admits to penile pain. Pt was seen & tx in our ED on 12/29/24. Admits to dysuria. States went through 5 pairs of underwear today due to leakage. Denies AC use PE: +gross hematuria in leg bag. Plan: labs, UA Medical Decision Making Medical Decision Making [facility] Narrative: 69-year-old male presents for evaluation of hematuria and leaking around his catheter. it appeared the patient had accidentally clamped his catheter tube when he tried to fasten the tube to his leg bag. this was corrected by nursing and the catheter is draining appropriately and there is no further leaking. the urine is clear, yellow with a pink tinge to it. Urinalysis was obtained that shows hematuria but no evidence of infection. He has no leukocytosis. He has a stable normocytic anemia. the patient will be discharged to follow up with his urologist as planned Differential Diagnosis Differential Diagnoses: The differential diagnosis associated with the presentation includes UTI Hematuria Quinn catheter malfunction urinary retention Admission/Observation Consideration of admission/observation: Escalation of care including admission/observation considered Lab Data MDM Lab Attestation statement: I reviewed the patient's lab results. no leukocytosis. there is a stable normocytic anemia. Normal platelet count. Patient's sodium is 130 but slightly improved compared to his labs of 2 days ago. chloride is also low at 92 also improved from recent labs. No other significant electrolyte abnormalities. Normal renal function 12/31/24 21:25 12/31/24 21:25 Labs: Lab Results 12/31/24 12/31/24 Range/Units 21:25 22:14 WBC 8.4 (4.8-10.8) X10*3/uL RBC 4.45 L (4.60-5.80) X10*6/uL Hgb 13.1 L (14.0-18.0) g/dl Hct 37.1 L (42.0-52.0) % MCV 83.4 (80.0-98.0) fL MCH 29.4 (27.0-33.0) pg MCHC 35.3 (31.0-36.0) g/dl RDW 15.0 (11.0-16.0) % Plt Count 242 (160-400) X10*3/uL MPV 8.8 L (9.4-12.4) fL Immature Gran % (Auto) 1.1 H (0.0-0.4) % Neut % (Auto) 72.2 (45-73) % Lymph % (Auto) 10.9 L (20-40) % [place] % (Auto) 14.2 H (2-11) % Eos % (Auto) 1.2 (0-4) % Baso % (Auto) 0.4 (0-2) % Lymph # (Auto) 0.9 L (1.2-4.9) X10*3/uL [place] # (Auto) 1.2 (0.1-1.2) X10*3/uL Eos # (Auto) 0.1 (0.0-0.4) X10*3/uL Baso # (Auto) 0.0 (0.0-0.2) X10*3/uL Abs Immat Gran (auto) 0.09 H (0.00-0.03) X10*3/uL Absolute Neuts (auto) 6.1 (2.0-8.3) x10*3/uL Absolute Nucleated RBC 0.000 (0.0-0.012) X10*3/uL Nucleated RBC % (auto) 0.0 (0.0-0.2) /100WBC PT 12.4 (10.9-12.4) SEC INR 1.1 (0.9-1.1) Sodium 130 L (135-145) mmol/L Potassium 4.0 (3.3-5.1) mmol/L Chloride 92 L (96-108) mmol/L Carbon Dioxide 27 (22-29) mmol/L Anion Gap 15 (12-20) BUN 16 (9-16) mg/dL Creatinine 0.80 (0.5-1.4) mg/dL Estim Creat Clear Calc 81.9 Estimated GFR > 60 Random Glucose 80 (60-115) mg/dL Calcium 9.7 (8.4-10.2) mg/dL Total Bilirubin 0.6 (0.0-1.0) mg/dL Direct Bilirubin 0.3 (0.0-0.5) mg/dL AST 32 (5-37) U/L ALT 20 (0-40) U/L Alkaline Phosphatase 82 (39-117) U/L Total Protein 8.3 H (6.5-8.0) g/dL Albumin 4.1 (3.5-5.0) g/dL Urine Color RED Urine Appearance Hazy Urine pH 6.0 (5.0-9.0) Ur Specific Orgas <= 1.005 (1.005-1.025) Urine Protein 30 (1+) H (Neg-Trace) mg/dL Urine Glucose (UA) 500 H (Negative) mg/dL Urine Ketones Negative (Negative) mg/dL Urine Blood Large (3+) H (Negative) Urine Nitrite Negative (Negative) Ur Leukocyte Esterase Negative (Negative) Urine RBC >20 H (0-2) /HPF Urine WBC 6-10 H (0-5) /HPF Ur Squamous Epith Cells 0-2 (0-2) /HPF Urine Bacteria None Seen (None Seen) Hyaline Casts 0-2 (0-2) /LPF Discharge Plan Discharge Clinical Impression: Malfunction of Quinn catheter, Hematuria Patient Disposition: Home, Self-Care Instructions: Hematuria (ED) Additional Instructions: it appears as though your catheter was leaking because it was not properly hooked up. make sure you connecting the tube to the clamp before the tube bifurcates. it appears that you accidentally clamped the tube preventing urine flow and causing the leakage catheter appears to be functioning normally your urine showed blood but no evidence of infection this is likely due to traumatic Quinn catheter insertion follow-up with urology as planned Prescriptions: No Action ondansetron 4 mg tablet,disintegrating 4 mg PO Q6H PRN (Reason: nausea and vomiting) Qty: 10 0RF multivitamin Tablet 1 tab PO DAILY potassium 99 mg Tablet 99 mg PO DAILY ascorbic acid (vitamin C) 500 mg Tablet 500 mg PO DAILY dextromethorphan-guaifenesin [Mucinex DM] 60-1,200 mg Tablet Extended Release 12 Hr 1 tab PO Q12H albuterol sulfate 90 mcg/actuation Hfa Aerosol Inhaler 2 puff INHALATION Q4-6H PRN (Reason: Wheezing) Breztri Aerosphere 160-9-4.8 mcg/actuation Hfa Aerosol Inhaler 2 inh INHALATION BID Probiotic 1 cap PO DAILY iVizia (PF) 0.5 % Drops 1 drp OPHTHALMIC (EYE) BID cefuroxime axetil 500 mg tablet 500 mg PO BID Qty: 10 0RF azithromycin 500 mg tablet 500 mg PO DAILY 5 Days Qty: 5 0RF Senokot Extra Strength 17.2 mg tablet 17.2 mg PO BID PRN (Reason: constipation) Qty: 20 0RF fluticasone propionate 50 mcg/actuation spray,suspension 1 spray intranasal DAILY Jardiance 10 mg tablet 10 mg PO DAILY duloxetine 30 mg capsule,delayed release(DR/EC) 30 mg PO DAILY rosuvastatin 20 mg tablet 20 mg PO BEDTIME finasteride 5 mg tablet 5 mg PO DAILY omeprazole 20 mg capsule,delayed release(DR/EC) 20 mg PO DAILY spironolactone 25 mg tablet 25 mg PO DAILY amlodipine 5 mg tablet 5 mg PO DAILY prednisone 5 mg tablet 10 mg PO DAILY gabapentin 600 mg tablet 600 mg PO BID tamsulosin 0.4 mg capsule 0.4 mg PO DAILY quetiapine 25 mg tablet 50 mg PO BEDTIME Interventions: ED Discharge Assessment Last Done: 01/01/25 00:07 Discharge Date/Time: 01/01/25 00:08 Print Language: Zambian
[2024-12-31 21:30] LABS: MANUAL DIFF FLAG NO
[2024-12-31 21:34] LABS: Basophils Percent Auto 0.4 % (0-2); Eosinophils Absolute Auto 0.1 X10*3/uL (0.0-0.4); Eosinophils Percent Auto 1.2 % (0-4); Hematocrit 37.1 % (42.0-52.0); Hemoglobin 13.1 g/dl (14.0-18.0); Imm Gran Abs Auto 0.09 X10*3/uL (0.00-0.03); Imm Gran Pct Auto 1.1 % (0.0-0.4); Lymphocytes Absolute Auto 0.9 X10*3/uL (1.2-4.9); Lymphocytes Percent Auto 10.9 % (20-40); Mean Corpuscular HGB Conc 35.3 g/dl (31.0-36.0); Mean Corpuscular Hemoglobin 29.4 pg (27.0-33.0); Mean Corpuscular Volume 83.4 fL (80.0-98.0); Mean Platelet Volume 8.8 fL (9.4-12.4); Monocytes Absolute Auto 1.2 X10*3/uL (0.1-1.2); Monocytes Percent Auto 14.2 % (2-11); Neutrophils Absolute Auto 6.1 x10*3/uL (2.0-8.3); Neutrophils Percent Auto 72.2 % (45-73); Platelet Count 242 X10*3/uL (160-400); Red Blood Count 4.45 X10*6/uL (4.60-5.80); White Blood Count 8.4 X10*3/uL (4.8-10.8)
[2024-12-31 21:40] LABS: INTERNATIONAL NORM RATIO 1.1 (0.9-1.1); Prothrombin Time 12.4 SEC (10.9-12.4)
[2024-12-31 21:46] LABS: Alanine Aminotransferase 20 U/L (0-40); Albumin Level 4.1 g/dL (3.5-5.0); Alkaline Phosphatase 82 U/L (39-117); Anion Gap 15 (12-20); Aspartate Amino Transferase 32 U/L (5-37); Bilirubin Direct 0.3 mg/dL (0.0-0.5); Bilirubin Total 0.6 mg/dL (0.0-1.0); Blood Urea Nitrogen 16 mg/dL (9-16); Calcium 9.7 mg/dL (8.4-10.2); Carbon Dioxide 27 mmol/L (22-29); Chloride 92 mmol/L (96-108); Creatinine Clr Calc Pharmacy 81.9; Estimated Glomerular Filt Rate > 60; Glucose Random 80 mg/dL (60-115); Sodium 130 mmol/L (135-145); Total Protein 8.3 g/dL (6.5-8.0)
--- OUTSIDE RECORDS SUMMARY | 2024-12-31 22:07 | XMS_ITS | Clinical Summary ---
Author Organization [address] [facility] Address [address] [place] [address] Phone Care Team Providers Care International Trade Compliance Manager Name Role Phone Luis Bravo MD Primary Care Provider [phone] Social History Tobacco Use Types Packs/Day Years [...] Insurance MEDICARE MEDICAID - [place] Care Teams International Trade Compliance Manager Relationship Specialty Start Date End Date Luis Bravo MD [facility] [address] [place], [place] PCP - General Internal Medicine 02/21/17
--- OUTSIDE RECORDS SUMMARY | 2024-12-31 22:08 | XMS_ITS | Encounter Summary ---
Author Organization [employer] [facility] Address [address] [place] [address] Care Team Providers Care Dog Show Judge Name Role Phone Unavailable Primary Care Provider Unavailabl e Encounter Details Date Type Department Care Team (Latest Contact Info) Description 07/20/2021 Abstract [facility] CONVERSIONS Dental, Provider, DDS Social History [...] Care Team (Late st Contact Info) Description 01/06/2025 10:00 AM EDT Office Visit [facility] ADULT DENTAL [address] [place] [address] Reji Salazar DDS [address] [place] [address] documented as of this encounter Visit Diagnoses Not on filedocumented in this encounter
--- OUTSIDE RECORDS SUMMARY | 2024-12-31 22:08 | XMS_ITS ---
Author Organization [facility] Address [address] [place] [address] Care Team Providers Care Door Technician Name Role Phone Onel Haile MD Primary Care Provider Unava ilable Dory Albert Unavailable [phone] REASON FOR VISIT question Encounters Encounter Location Date Provider Diagnosis [address] [address] 12/24/2024 Dory Albert Plan Of Treatment Next Appt Details Provider Name:Dory Hugo Roosevelt , 01/05/2025 10:15:00 AM, [address] [place], [address], Progress Notes * Yobani TERRELL ADOB:[birth year] (69 yo M)Acc No.[id number]:12/24/2024 Patient:?Yobani TERRELL :1955???Age:69 Y???Sex:Male Address:[address] [place] [address], [address] * true * Date:? Generated for Printi ng/Orion/eTransmitting on:?12/31/2024 10:08 PM EDT
--- OUTSIDE RECORDS SUMMARY | 2024-12-31 22:08 | XMS_ITS | Patient Health Record ---
Author Organization [facility] [place] Address [address] [place] [address] Care Team Providers Care Pathology Tech Name Role Phone Onel Haile MD Primary Care Provider Buster luis Dory Albert Unavailable [phone] Allergies Allergen (clinical drug ingredient) Drug/Non Drug [...] Problem Acquired hammer toe of right foot (27481224482 ) Other hammer toe(s) (acquired), right foot (M20.41) Active confirmed Problem Acquired hammer toe of left foot (66581087554 ) Other hammer toe(s) (acquired), left foot (M20.42) Active confirmed Problem Ulcer of toe of right foot (disorder) (00897467903 619587) Skin ulcer of toe of right foot, limited to breakdown of skin (L97.511) Active confirmed Response to treatment Nonapplicable Problem Ulcer of toe of left foot (disorder) (75350120969 582963) Skin ulcer of toe of left foot, limited to breakdown of skin (L97.521) Active confirmed Response to treatment Nonapplicable Nonapplicable Vital Signs Blood pressure diastolic 70 mm Hg 12/23/2024 Height 5 ft 8 in in 12/23/2024 Blood pressure systolic 130 mm Hg 12/23/2024 Weight 160 lbs 12/23/2024 BMI 24.33 kg/m2 12/23/2024 Procedures Procedure Date Ordered Date Performed Result Body Sit e 53860- Debride <25 sq cm 12/23/2024 N/A Encounters Encounter [facility] Date [facility] [address] 12/23/2024 Dory Albert Pain in right toe(s) [...] Cellulitis of toe of left foot L03.032 [facility] [place] [address] [place] [address] 12/24/2024 Dory Albert Assessments Encounter Date Diagnosis [...] Treatment Pending Test Test Name Order Date 11509- Debride <25 sq cm 12/23/2024 30582-TBUFAUU SKIN/TISSUE 05/15/2017 15861 I&D ABSCESS- SIMPLE,SINGLE 018 Next Appt Details Provider Name:Dory A Roosevelt , 01/05/2025 10:15:00 AM, [address] [place] [address], [phone], Insurance Providers Payer Name Payer Address Payer Phone Subscriber Number Group Number Insured Name Patient Relationship to Insured Coverage Start Date Coverage End Date Medicare National Govt Sv[employer] [address] [place] [address] [id number] Juwan Yobani Self - patient is the insured 9 Medical (General) History Medical History History ICD Code Back,Hip,and Knee pain Heart disease Raynauds syndrome Measles Mumps Chicken pox Replacement Heart Valves Transfusions Arthritis High Blood Pressure Sarcoidosis Lung disease Surgical History Surgery Date(Month/Year) 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
--- OUTSIDE RECORDS SUMMARY | 2024-12-31 22:08 | XMS_ITS | Encounter Summary ---
Author Organization [employer] [facility] Address [address] [facility] [address] 7t [place] [address] Care Team Providers Care Caddy Name Role Phone Unavailable Primary Care Provider Unavailabl e Encounter Details Date Type Department Care Team (Latest Contact Info) Description 09/26/2019 Abstract [facility] CONVERSIONS Dental, Provider, DDS Social History [...] Description 01/06/2025 10:00 AM EDT Office Visit [facility] ADULT DENTAL [address] [place] [address] Reji Salazar DDS [address] [place] [address] documented as of this encounter Visit Diagnoses Not on filedocumented in this encounter
--- OUTSIDE RECORDS SUMMARY | 2024-12-31 22:08 | XMS_ITS ---
Author Organization [facility] Address [address] [place] [address] Care Team Providers Care Mine Inspector Name Role Phone Mic WOODS, Onel Primary Care Provider Unava ilable Black, Dory Unavailable [phone] Allergies Allergen (clinical drug ingredient) Drug/Non Drug [...] Problem Acquired hammer toe of right foot (61413099096 21531) Other hammer toe(s) (acquired), right foot (M20.41) Active confirmed Problem Acquired hammer toe of left foot (17073222083 71699) Other hammer toe(s) (acquired), left foot (M20.42) Active confirmed Problem Ulcer of toe of left foot (disorder) (75213903412 301549) Skin ulcer of toe of left foot, limited to breakdown of skin (L97.521) Active confirmed Response to treatment Nonapplicable Nonapplicable Problem Ulcer of toe of right foot (disorder) (56964226278 426018) Skin ulcer of toe of right foot, limited to breakdown of skin (L97.511) Active confirmed Response to treatment Nonapplicable Vital Signs Height 5 ft 8 in in 12/23/2024 Weight 160 lbs 12/23/2024 BMI 24.33 kg/m2 12/23/2024 Blood pressure systolic 130 mm Hg 12/24/19 25 Blood pressure diastolic 70 mm Hg 025 Procedures Procedure Date Ordered Date Performed Result Body Sit e 84810- Debride <25 sq cm 12/23/2024 N/A Encounters Encounter Location Date Provider Diagnosis [facility] [address] [address] 12/23/2024 Dory Black Pain in right toe(s) [...] day(s) 12/23/2024 Silvadene 1 % 1 application Corrections Officer ally Once a day for 30 days 12/23/2024 Treatment Notes Assessment Notes Skin ulcer of toe of left fo ot, limited to breakdown of skin Patient Educated with: WOUND CARE INSTRUCTIONS.pdf (WOUND CARE INSTRUCTIONS.pdf) Skin ulcer of toe of right f oot, limited to breakdown of skin Patient Educated with: WOUND CARE INSTRUCTIONS.pdf (WOUND CARE INSTRUCTIONS.pdf) Pending Test Test Name Order Date 01089- Debride <25 sq cm 12/23/2024 Next Appt Details Follow Up: 2 Weeks, Reason: Provider Name:Dory Albert , 01/05/2025 10:15:00 AM, [address] [place], [address], Procedure Notes * Category Sub-Category Detail Notes [...] of the wound post debridement is stable (27462) Progress Notes * Yobani TERRELL ADOB:[birth year] (69 yo M)Acc No.[id number]:12/23/2024 Progress Notes Patient:?Yobani TERRELL Provider:?Dory Albert DPM :1955???Age:69 Y???Sex:Male Jesse e:12/23/2024 Address:[address] [place], [place] [id number] Pcp:nOel Haile MD Subjective: * Chief Complaints: * [...] yes, walking. ?Marital status: single. 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 ???Drug/Alcohol:?AUDIT-C (Standard)?Did you have a [...] AP, LO, MO , B/L??Taken by trained?Podiatric Traveling Phlebotomist (?kl ).?Findings:?normal bone and soft tissue density [...] day, 30 days, 25 Gram, Refills 1.?Procedure: 20835- Debride <25 sq cm Notes: Patient Educated [...] of the wound post debridement is stable (84673).? * Procedure Codes:?94357 X-RAY EXAM OF RIGHT FOOT 3V, Modifiers: 26 , [id number] ACTIVE WOUND CARE/20 CM OR <, Modifiers: XS 10211 X-RAY EXAM OF LEFT FOOT 3V, Modifiers: [...] Albert DPM Date:?2024 Generated for Ruby meeks/Orion/Raji on:?12/31/2024 10:07 PM EDT History and Physical Notes * [...] ormal Sensory and motor testing performed:: [facility] normal Pedal pulse taking performed:: 1+ ORIENTED: [...] MO , B/L Taken by trained Podiatric Traveling Phlebotomist ( kl ) Clinical Indication(s): Evaluate Biomech anical Deformity
--- OUTSIDE RECORDS SUMMARY | 2024-12-31 22:08 | XMS_ITS | Encounter Summary ---
Author Organization [employer] Address [address] [place] [address] Care Team Providers Care Starchmaker Name Role Phone Unavailable Primary Care Provider Unavailabl e Reason for Visit * Reason Onset Date Comments case back from lab 02/01/2024 Encounter Details Date Type Department Care Team (Late st Contact Info) Description 02/01/2024 Telephone [facility] ADULT DENTAL [address] [place] [address] Reji Salazar DDS [address] [place] [address] case back from lab Social History Tobacco [...] AM EDT Message for Dr. Salazar and service desk specialist [facility] Patient calling in checking in on status of case if back from lab. He states its been more than 2 weeks and would like an appt. Sending message to front office java developer as well due to Dr Nicole limited [...] Description 01/06/2025 10:00 AM EDT Office Visit [facility] ADULT DENTAL [address] [place] [address] Reji Salazar DDS [address] [place] [address] documented as of this encounter Visit Diagnoses Not on filedocumented in this encounter
--- OUTSIDE RECORDS SUMMARY | 2024-12-31 22:08 | XMS_ITS | Data Portability ---
Author Organization [place] [facility] Address [address] [place] [id number] Care Team Providers Care Tempering Machine Operator Name Role Phone KATHRINE DAVID Primary Care [...] after care of this patient according to [facility]'s infection prevention protocols. Lab Results BMP + ionized calcium, serum or plasma glu: 93mg/dL ref: 70-105 BUN: 19mg/dL ref: 8-26 crea: 0.9mg/dL ref: 0.6-1.3 Na: 138mmol/L ref: 138-146 K: 4.2mmol/L ref: 3.5-4.9 cL: 99mmol/L ref: 98-109 TCO2: 26mmol/L ref: 24-29 angap: 18mmol/L ref: 10-20 ica: 1.24mmol/L ref: 1.12-1.32 HCT: 48%pcv ref: 37-47 Hb: 16.3g/dL ref: 12-17 Time On Scene with Patient: 00:39:26 [email or web address] Not available 04/30/2020 17:23:36 Plan of Treatment Reminders Order Date Submit Date Provider Last Modified By Organization Details Last Modified Time Details Appointments None recorded. Lab BMP + ionized calcium, serum or plasma [address] [facility], [place], [address], 0 16:37:17 Referral None recorded. Procedures None recorded. Surgeries None recorded. Imaging None recorded. Medication Orders None recorded. Patient TargetsNo targets recorded. Patient Instructions Encounter Date Encounter Id Patient Instructions Last Modified By Organization Details Last Modified Time 04/30/2020 [id number] TODAY YOU WERE SEEN FOR FEELING OFF [...] OUT. Thank you for your visit with [facility] today. We cannot always find the exact [...] in your condition between 8am-10pm, please call [facility] at [phone] to help navigate your care. Not available 04/30/2020 16:34:47 Reason for Referral None Reported. Results Created Date Observation Date Name Description Value Unit Range Abnormal Flag Note LastModifiedBy Organization Detail LastModifiedTime 04/30/20 20 04/30/2020 BMP + ioniz ed calci um, serum or plasm a glu 93 mg/dL 70-105 Not Available Den [facility] [address] [place], [address], 04/30/2020 16:37:17 04/30/20 20 04/30/2020 BMP + ioniz ed calci um, serum or plasm a BUN 19 mg/dL 8-26 Not Available [address], [address], 04/30/2020 16:37:17 04/30/20 20 04/30/2020 BMP + ioniz ed calci um, serum or plasm a crea 0.9 mg/dL 0.6-1. 3 Not Available [address], [address], 04/30/2020 16:37:17 04/30/20 20 04/30/2020 BMP + ioniz ed calci um, serum or plasm a Na 138 mmol/ L 138-14 6 Not Available [address], [address], 04/30/2020 16:37:17 04/30/20 20 04/30/2020 BMP + ioniz ed calci um, serum or plasm a K 4.2 mmol/ L 3.5-4. 9 Not Available [address], [address], 04/30/2020 16:37:17 04/30/20 20 04/30/2020 BMP + ioniz ed calci um, serum or plasm a cL 99 mmol/ L 98-109 Not Available [address], [address], 04/30/2020 16:37:17 04/30/20 20 04/30/2020 BMP + ioniz ed calci um, serum or plasm a TCO2 26 mmol/ L 24-29 Not Available [address], [address], 04/30/2020 16:37:17 04/30/20 20 04/30/2020 BMP + ioniz ed calci um, serum or plasm a angap 18 mmol/ L 10-20 Not Available Den [facility] [address] [place], [address], 04/30/2020 16:37:17 04/30/20 20 04/30/2020 BMP + ioniz ed calci um, serum or plasm a ica 1.24 mmol/ L 1.12-1 .32 Not Available Den [facility] [address] [place], [address], 04/30/2020 16:37:17 04/30/20 20 04/30/2020 BMP + ioniz ed calci um, serum or plasm a HCT 48 %pcv 37-47 Not Available [facility] [address] [place], [address], 04/30/2020 16:37:17 04/30/20 20 04/30/2020 BMP + ioniz ed calci um, serum or plasm a Hb 16.3 g/dL 12-17 Not Available [facility] [address] [place], [address], 04/30/2020 16:37:17 Result Notes None recorded. Procedures Surgical History Date Name Laterality Status Provider Name and Address Organization Details Recorded Time 04/30/20 20 Venipuncture - DH completed DEMARCUS SUAREZ [address] [place], [address], [place] [facility] 05/07/2020 08:44:02 procedure on heart valve completed DEMARCUS SUAREZ [address] [place], [address], [place] [facility] 04/30/2020 16:13:26 surgical procedure on cervical spine completed DEMARCUS SUAREZ [address] [place], [address], [place] [facility] 04/30/2020 16:13:36 Imaging Results None recorded. Procedure Notes None recorded. Medical Equipment None Reported. Allergies Allergen ID Allergen Name Allergen Category Reaction Reaction Severity Criticality Documentation Date Start Date Code Code System Note Provider Name and Address Organization Details Recorded Time 311979 diltiazem Not available Not available Not available Not available 04/30/2020 3443 RxNorm DEMARCUS SUAREZ [address] [place], [place], [address], [place] [facility] 0 16:05:59 [id number] nifedipin e medicatio n Not available Not available Not available 04/30/2020 7417 RxNorm DEMARCUS SUAREZ [address] [place], [place], [address], [place] [facility] 0 16:06:09 [...] Tobacco Smoking Status Never Smoker occasional marijuana EDMARCUS SUAREZ [address], [place], [address], [place] [facility] 04/30/2020 16:08:27 Do You Have An Advance Directive? No [email or web address] Information not available 04/30/2020 What Is Your Code Status? Full Code [email or web address] Information not available 04/30/2020 Within The Past 12 Months, Has It Happened That The Food You Bought Just Didn't Last And You Didn't Have Money To Get More. No [email or web address] Information not available 04/30/2020 Within The Past 12 Months, Have You Worried That Your Food Would Run Out Before You Got Money To Buy More. No [email or web address] Information not available 04/30/2020 Fall Risk: Do You Feel Unsteady When Standing Or Walking? Yes Information not available 04/30/2020 We Know That How And When People Interact With Friends And Family Can Be Very Different From Person To Person. How Often Do You Have The Opportunity To See Or Talk To People That You Care About And Feel Close To? (Ex: Talking To Friends On The Phone Or Visiting Friends Or Family Or Going To [employer] Or Club Meetings) 1 Or 2 Times Per Week [email or web address] Information not available 04/30/2020 Excessive Alcohol Or Drug Use Yes 2-3 Drinks And A Beer Daily [email or web address] Information not available 04/30/2020 We Know From Many Of Our Patients That Covering All Of Their Costs Can Be Difficult At Times. This Can Cause Stress And Impact Health. In The Past Year, Have You Been Unable To Get Any Of The Following When It Was Really Needed? No [email or web address] Information not available 04/30/2020 What Is Your Housing Situation Today? I Have Housing Information not available 04/30/2020 Would You Like Help Connecting To Resources? None [email or web address] Information not available 04/30/2020 Sex: Unknown Functional Status None recorded. Mental Status None recorded. Family History Relationship Description Onset Age of this Age Resolved Age Notes LastModified by Organization Details LastModified Time Father No current problems or disability Not available 04/30 16:07:46 Mother No current problems or disability [email or web address] Not available 04/30 16:07:46 Medical History Condition Response Diabetes N Coronary Artery Disease Y High Cholesterol Y Pulmonary Embolism N Cancer N Stroke N Hypertension Y COPD N Asthma N Kidney Disease N Past Encounters Encounter ID Performer Location Encounter Start Date Encounter Closed Date Diagnosis/Indication Diagnosis SNOMED-CT Code Diagnosis ICD10 Code Diagnosis Note [id number] DEMARCUS SUAREZ [facility] [address] [place] [address] 04/30/2020 15:54:30 05/05/2020 14:18:51 Lightheadedness 587359753 R42 Impairment of balance 38 7759431 R26.89 Health Concerns Section Related Observation LastModified by Organization Detai ls LastModified Time None Recorded Concern Status LastModified by Organization Details LastModified Time None Recorded Advance Directives Directive N: Payers Insurance Date Sequence Insurance Name Policy Number Policy Mesa Covered Member ID Mesa Member ID Guarantor Name 04/30/2020 1 MEDICARE B-CA: [facility] [id number] 3 [facility] 04/30/2020 1 *SELF PAY* [facility] [id number] [facility] 05/07/2020 2 [facility] (MEDICARE SUPPLEMENT) [facility] [id number] [facility] 04/30/2020 2 [facility] (MEDICARE SUPPLEMENT) [facility] [id number] [facility] 04/30/2020 1 MEDICARE B-[place]: [facility] [id number] [facility] Notes Date Note Type Note Provider [...] Denies any room spinning dizziness. DEMARCUS SUAREZ [facility] [place], [address], [place] [facility] 05/07/2020 08:44:10
--- OUTSIDE RECORDS SUMMARY | 2024-12-31 22:08 | XMS_ITS | Encounter Summary ---
Author Organization [employer] Address [address] [place] [address] Care Team Providers Care Satellite Dish Technician Name Role Phone Unavailable Primary Care Provider Unavailabl e Reason for Visit * Reason Onset Date Comments Dr. Martin isabel 11/05/2024 Encounter Details Date Type Department Care Team ([facility] st Contact Info) Description 11/05/2024 Telephone [facility] [address] [place] [address] Reji Salazar DDS [address] [place] [address] Dr. Martin isabel Social History Tobacco Use [...] prior to cleaning date. Reached out to senior front end web developer. Advised to reach out to provider for further instructions on scheduling patient. toll test desk worker may call patient on provider determination DR documented in this encounter Plan of Treatment Upcoming Encounters Date Type Department Care Team (Late st Contact Info) Description 01/06/2025 10:00 AM EDT Office Visit [facility] [address] [place] [address] Reji Salazar DDS [address] [place] [address] documented as of this encounter Visit Diagnoses Not on filedocumented in this encounter
--- OUTSIDE RECORDS SUMMARY | 2024-12-31 22:08 | XMS_ITS | Encounter Summary ---
Author Organization [employer] Address [address] [place] [address] Care Team Providers Care District Manager In Training Name Role Phone Unavailable Primary Care Provider Unavailabl e Reason for Visit * Reason Onset Date Comments medication 08/24/2023 Encounter Details Date Type Department Care Team ([facility] st Contact Info) Description 08/24/2023 Telephone [facility] [address] [place] [address] Yessica Connolly DDS [address] [place] [address] medication Social History Tobacco Use Types Packs/Day [...] added a different [facility] [address] [facility] [place] [facility] [place] [facility]. I added the pharmacy onto his chart but did not removeKristi because that is his main pharmacy. Only this script [facility] on [address] in [facility] documented in this encounter Plan of Treatment Upcoming Encounters Date Type Department Care Team (Late st Contact Info) Description 01/06/2025 10:00 AM EDT Office Visit [facility] [address] [place], [place] [id number] Reji Salazar DDS [address] [place] [address] documented as of this encounter Visit Diagnoses Not on filedocumented in this encounter
--- OUTSIDE RECORDS SUMMARY | 2024-12-31 22:08 | XMS_ITS | Encounter Summary ---
Author Organization [employer] [facility] Address [address] [place] [address] Care Team Providers Care Stockroom Helper Name Role Phone Unavailable Primary Care Provider Unavailabl e Encounter Details Date Type Department Care Team (Latest Contact Info) Description 06/23/2022 Abstract [facility] CONVERSION[facility] Dental, Provider, DDS Social History [...] Description 01/06/2025 10:00 AM EDT Office Visit [facility] [address] [place] [address] Reji Salazar DDS [address] [place] [address] documented as of this encounter Visit Diagnoses Not on filedocumented in this encounter
--- OUTSIDE RECORDS SUMMARY | 2024-12-31 22:09 | XMS_ITS | Clinical Summary ---
Author Organization [employer] Address [address] [facility] [address] [place] [address] Care Team Providers Care Media Strategist Name Role Phone Unavailable Primary Care Provider [...] Type Department Care Team Description 11/05/2024 Telephone [facility] [address] [place] [address] Challa recement crown 10/07/2024 1:30 PM EST Office Visit [facility] [address] [place] [address] Reji Salazar DDS from Last 3 Months [...] Description 01/06/2025 10:00 AM EDT Office Visit [facility] [address] [place] [address] Reji Salazar DDS [address] [place] [address] Health Maintenance Due Date Last Done Comments [...]
[2024-12-31 22:46] VITALS: BP 118/76; PULSE 88; RESP 19; TEMP 36.6; O2SAT 98
[2024-12-31 22:48] LABS: Appearance Urine Hazy; Color Urine RED; Glucose Urine UA 500 mg/dL (Negative); Leukocyte Esterase Urine Negative (Negative); Nitrite Urine Negative (Negative); Specific Gravity - Urine <= 1.005 (1.005-1.025); UMIC TRIGGER UACC YES; Urine Blood Large (3+) (Negative); Urine Ketones Negative (Negative); Urine Protein 30 (1+) mg/dL (Neg-Trace)
[2024-12-31 22:51] LABS: Bacteria Urine None Seen (None Seen); Hyaline Casts Urine 0-2 /LPF (0-2); RBC Urine >20 /HPF (0-2); Squamous Epithelial Cell Urine 0-2 /HPF (0-2); UACC Culture Trigger YES
[2025-01-01 00:07] VITALS: BP 118/76; PULSE 88; RESP 19; TEMP 36.6; O2SAT 98
== END 2025-01-01 00:08 | disposition home or self-care (01) ==
PROVIDERS: Physician Assistant; Emergency Provider Emergency Medicine
DX: R31.9 Hematuria, unspecified (principal); T83.038A Leakage of other urinary catheter, initial encounter; Y73.8 Miscellaneous gastroenterology and urology devices associated with adverse incidents, not elsewhere classified; Y92.9 Unspecified place or not applicable; Z79.899 Other long term (current) drug therapy
CPT/HCPCS: 36415; 51798; 80048; 80076; 81001; 85025; 85610; 87086; 99283